=== PATIENT | male | born 1985 | race Caucasian/White ===

== ENCOUNTER 2022-04-15 16:06 | Emergency (ER) | payer BC, SELFPAY ==
[2022-04-15 16:27] VITALS: BP 147/83; PULSE 72; RESP 14; TEMP 36.7; O2SAT 97; BMI 22.4
--- NOTE | 2022-04-15 16:44 | CRLHL7_ITS ---
For Patients: As a result of the Century Cures Act, medical imaging exams and procedure reports are released immediately into your electronic medical record. You may view this report before your referring provider. If you have questions, please contact your health care provider. INDICATION: Abdominal pain, black stools, back pain. TECHNIQUE: CT abdomen and pelvis acquired with 81 cc Isovue 370 IV contrast. COMPARISON: None. FINDINGS: Lower chest: Unremarkable. Liver: Unremarkable. Normal in size and attenuation. No suspicious masses. Gallbladder and bile ducts: Unremarkable. No stones or inflammation. No biliary dilatation. Pancreas: Unremarkable. No mass or inflammation. Spleen: Unremarkable. Normal in size. No masses. Adrenal glands: Unremarkable. No nodules. Kidneys: Unremarkable. No suspicious masses, stones, or hydronephrosis. GI tract: Unremarkable. Normal in caliber. No sign of mass or inflammation. Normal appendix. Vasculature: Abdominal aorta is normal in caliber. Mesenteric arteries are patent. Lymph nodes: No lymphadenopathy. Peritoneum/Abdominal Wall: Unremarkable. No sign of mass or infiltration. No free air or significant free fluid. Pelvis: Vasectomy clips. Bones: Unremarkable for age. IMPRESSION: Unremarkable CT of the abdomen and pelvis. No acute findings. Please note that all CT scans at this facility use dose modulation, iterative reconstruction, and/or weight-based dosing when appropriate to reduce radiation dose to as low as reasonably achievable. Dictated by Sterling Pelayo MD @ 04/15/2022 6:23:42 PM (Electronically Signed)
--- NOTE | 2022-04-15 16:45 | ED_ITS ---
HPI - Abdominal Pain General Chief Complaint: Abdominal Pain Stated Complaint: LOWER BACK & STOMACH PAIN Time Seen by Provider: 04/15/22 16:33 History of Present Illness HPI narrative: This 36-year-old male comes in reporting low back pain that started yesterday and today he has abdominal pain in addition to the back pain. He does not report any particular injury event or strenuous activity. He does not have a history of back pain. He does not report any history of diverticulitis or kidney stones. He states that he had bright red blood in the toilet today. He does report a history of hemorrhoids. Related Data Previous Rx's Medication Instructions Recorded cyclobenzaprine 10 mg tablet 10 mg PO TID #15 tabs 04/15/22 hydrocodone 5 mg-acetaminophen 325 1 tab PO Q4-6H PRN pain #15 tabs 04/15/22 mg tablet ketorolac 10 mg tablet 10 mg PO Q8H 5 days #15 tabs 04/15/22 methylprednisolone 4 mg tablets in See Rx Instructions PO .COMPLEX 04/15/22 a dose pack (Medrol (Martin)) #21 ea Allergies Allergy/AdvReac Type Severity Reaction Status Date / Time amoxicillin Allergy Rash Verified 04/15/22 17:23 Penicillins Allergy Rash Verified 04/15/22 17:23 Review of Systems Status of ROS Reports: 10 or more systems reviewed and unremarkable except as noted in History and below Narrative Constitutional: No fevers, no weight gain or loss. Eyes: No discharge. No vision changes. HENT: No congestion, no sore throat, no ear pain. Cardiovascular: No chest pain, no palpitations. Respiratory: No shortness of breath, no wheezes, no cough. Gastrointestinal: No vomiting, no diarrhea. Diffuse abdominal pain. Genitourinary: No dysuria, no hematuria. Musculoskeletal: Normal range of motion. Low back pain bilaterally. Skin: No rashes, no pruritis. Neurological: No dizziness, weakness, sensory change, speech change. Endo/Heme/Allergies: No bruising or bleeding. No polydipsia. Pysch: no suicidality, no anxiety, no insomnia. All other systems reviewed and are negative. Exam Narrative: Exam Narrative: Constitutional: Well-developed, well-nourished, no acute distress. HEENT: Normocephalic, atraumatic. Neck: Normal range of motion. Nontender. Supple. Heart: Regular. No murmurs. Normal rate. Intact distal pulses. Lungs: Clear to auscultation. No chest discomfort. No wheezes, rhonchi, or rales. Abdomen: Normal bowel sounds. Diffuse tenderness. No rebound tenderness. Genitalia: Deferred. Back: No midline tenderness. Normal range of motion. No pain radiating to either leg. Extremities: Normal range of motion. No injury. Skin: Intact. No rash. Warm. No erythema or pallor. Neurologic: No altered sensation. No weakness. Alert and oriented. Psychiatric: No suicidality. No anxiety or depression. No insomnia. Nursing notes and vitals signs are reviewed. Const: Vital Signs, click to edit/add: Vital Signs - 24 hr 04/15/22 16:27 Temperature 98.1 F Pulse Rate [Right Pulse Oximeter] 72 Respiratory Rate 14 Blood Pressure [Ri ght Upper Arm] 147/83 H Pulse Oximetry 97 Oxygen Delivery Me thod Room Air Course Vital Signs Vital signs: Initial Vital Signs Temperature 98.1 F 04/15/22 16:27 Temperature Source Temporal Artery Scan 04/15/22 16:27 Pulse Rate 72 04/15/22 16:27 Respiratory Rate 14 04/15/22 16:27 Blood Pressure 147/83 H 04/15/22 16:27 Blood Pressure Mean 104 04/15/22 16:27 Blood Pressure Position Sitting 04/15/22 16:27 Pulse Oximetry 97 04/15/22 16:27 Oxygen Delivery Method 04/15/22 16:27 Vital Signs Temperature 98.1 F 04/15/22 16:27 Pulse Rate 72 04/15/22 16:27 Respiratory Rate 14 04/15/22 16:27 Blood Pressure 147/83 H 04/15/22 16:27 Pulse Oximetry 97 04/15/22 16:27 Oxygen Delivery Method 04/15/22 16:27 Temperature 98.1 F 04/15/22 16:27 Pulse Rate 72 04/15/22 16:27 Respiratory Rate 14 04/15/22 16:27 Blood Pressure 147/83 H 04/15/22 16:27 Pulse Oximetry 97 04/15/22 16:27 Oxygen Delivery Method 04/15/22 16:27 MDM - Abdominal Pain MDM Narrative Medical decision making narrative: This patient comes in with low back pain and abdominal pain. An IV was established and labs were drawn. His labs returned with reassuring findings. Additionally CT scan of the abdomen and pelvis show no acute findings that explain his symptoms. It seems more likely that his symptoms are emanating from his back. His current symptoms began with back pain and now is radiating into his abdomen. I advised him to stay active and do gentle stretching and strengthening. I did provide prescriptions for Medrol Dosepak, Toradol, Flexeril, and a few tablets of [place]. I advised him to follow-up with his primary physician or return if worsening. Lab Data Labs: Lab Results 04/15/22 04/15/22 04/15/22 Range/Units 17:10 17:10 17:57 WBC 4.59 (4.50-11.00) K/uL RBC 4.24 L (4.30-5.90) m/uL Hgb 13.4 L (13.5-17.5) gm/dL Hct 37.4 (37.0-53.0) % MCV 88 (80-100) fL MCH 32 (26-34) pg MCHC 36 (32-36) gm/dL RDW Coeff of Star 11.9 (11.5-15.5) % Plt Count 208 (140-440) K/uL Neut % (Auto) 50.7 (42.0-72.0) % Lymph % (Auto) 37.3 (20-44) % [place]rick % (Auto) 10.9 (0.0-11.0) % Eos % (Auto) 0.7 (0.0-7.0) % Baso % (Auto) 0.4 (0.0-3.0) % Neut # (Auto) 2.33 (1.7-7.0) K/uL Lymph # (Auto) 1.71 (0.90-2.90) K/uL Warrick # (Auto) 0.50 (0.00-0.90) K/UL Eos # (Auto) 0.03 (0.00-0.50) K/uL Baso # (Auto) 0.02 (0.00-0.30) K/uL Abs Immat Gran (auto) 0.00 (0.00-0.30) K/uL Sodium 141 (135-149) mmol/L Potassium 3.3 L (3.6-5.1) mmol/L Chloride 106 (96-114) mmol/L Carbon Dioxide 28 (20-32) mmol/L BUN 11 (5-24) mg/dL Creatinine 0.8 (0.5-1.5) mg/dL Estimated Creat Clear 136.43 Estimated GFR 118 ml/min Glucose 94 (60-115) mg/dL Calcium 9.0 (8.4-10.6) mg/dL Urine Color Yellow (Yellow) Urine Appearance Clear (Clear) Urine pH 7.5 (5.0-8.5) Ur Specific [place] 1.010 (1.000-1.030) Urine Protein Negative (Negative) Urine Glucose (UA) Negative (Negative) Urine Ketones Negative (Negative) Urine Blood Negative (Negative) Urine Nitrite Negative (Negative) Urine Bilirubin Negative (Negative) Urine Urobilinogen 0.2 (0.2-1.0) Ur Leukocyte Esterase Negative (Negative) Urine RBC 0-2 (0-2) Urine WBC 0-2 (0-5) Ur Squamous Epith Cells None (None-Few) Urine Bacteria None (None) Imaging Data CT scan - abdomen: Radiologist's impression: Unremarkable CT of the abdomen and pelvis. No acute findings. Discharge Plan Discharge Clinical Impression: Lumbago Patient Disposition: Home, Self-Care Condition: Unchanged Additional Instructions: Increase activity as tolerated. Gentle stretching and strengthening is encouraged. Take medications as needed and directed. Follow up with MD or return if worsening. Prescriptions: New cyclobenzaprine 10 mg tablet 10 mg PO TID Qty: 15 0RF hydrocodone-acetaminophen 5-325 mg tablet 1 tab PO Q4-6H PRN (Reason: pain) Qty: 15 0RF ketorolac 10 mg tablet 10 mg PO Q8H 5 Days Qty: 15 0RF methylprednisolone [Medrol (Martin)] 4 mg tablets,dose pack See Rx Instructions .ROUTE .COMPLEX Qty: 21 0RF Rx Instructions: orally per package directions Stand Alone Forms: [employer] Info Instructions
[2022-04-15 17:23] LABS: Basophils Absolute Auto 0.02 K/uL (0.00-0.30); Basophils Percent Auto 0.4 % (0.0-3.0); Eosinophils Absolute Auto 0.03 K/uL (0.00-0.50); Eosinophils Percent Auto 0.7 % (0.0-7.0); Hematocrit 37.4 % (37.0-53.0); Hemoglobin* 13.4 gm/dL (13.5-17.5); Lymphocytes Absolute Auto 1.71 K/uL (0.90-2.90); Lymphocytes Percent Auto 37.3 % (20-44); Mean Corpuscular HGB Conc 36 gm/dL (32-36); Mean Corpuscular Hemoglobin 32 pg (26-34); Mean Corpuscular Volume 88 fL (80-100); Monocytes Percent Auto 10.9 % (0.0-11.0); Neutrophils Absolute Auto 2.33 K/uL (1.7-7.0); Neutrophils Percent Auto 50.7 % (42.0-72.0); Platelet Count* 208 K/uL (140-440); RDW Coefficient of Variation % 11.9 % (11.5-15.5); Red Blood Count 4.24 m/uL (4.30-5.90); White Blood Count* 4.59 K/uL (4.50-11.00)
[2022-04-15 17:27] LABS: Slide Review Reflex No
[2022-04-15 17:41] LABS: Chloride* 106 mmol/L (96-114); Potassium* 3.3 mmol/L (3.6-5.1); Sodium* 141 mmol/L (135-149)
[2022-04-15 17:43] LABS: Creatinine* 0.8 mg/dL (0.5-1.5); Est. Creatinine Clearance* 136.43; Estimated Glomerular Filt Rate 118 ml/min
[2022-04-15 17:44] LABS: Blood Urea Nitrogen* 11 mg/dL (5-24); Carbon Dioxide* 28 mmol/L (20-32); Glucose* 94 mg/dL (60-115)
[2022-04-15 18:10] LABS: Appearance Urine Clear (Clear); Bilirubin Urine Negative (Negative); Blood Urine Negative (Negative); Color Urine Yellow (Yellow); Glucose Urine Negative (Negative); Ketones Urine Negative (Negative); Leukocyte Esterase Urine Negative (Negative); Nitrite Urine Negative (Negative); Protein Urine Negative (Negative); Urobilinogen Urine 0.2 (0.2-1.0); pH Urine 7.5 (5.0-8.5)
[2022-04-15 18:21] LABS: RBC Urine 0-2 (0-2); WBC Urine 0-2 (0-5)
[2022-04-15 18:55] VITALS: BP 147/83; PULSE 72; RESP 14; TEMP 36.7
--- OUTSIDE RECORDS SUMMARY | 2022-04-15 18:57 | XMS_ITS | Encounter Summary ---
:1985 Author Organization [facility] Address [address] [place] [address] Care Team Providers Name Role Phone Mike Canales MD Primary Care Provider Unavailable Mike Canales MD Unavailable Unavailable Mike Canales MD Unavailable Unavailable Reason for Visit [facility] Physical Therapy (Routine) - Closed Specialty Diagnoses / Procedures Referred By Contact Refer red To Contact Physical Therapy Diagnoses >4 (R) ankle and knee / [facility] / Pref1 Andrey [facility] Procedures EXTREMITY INITIAL MD [facility] Therapy - [facility] ORTHOPEDICS [id number] [address] [facility] [address] [id number] [place] [address] Referral ID Status Reason Start Date Expiration Date Visits Requ ested Visits Authorized [id number] Closed 03/05/2017 07/10/2018 30 30 Encounter Details Date Type Department Care Team Description 10/10/2017 Therapy Visit [facility] Chente Franks, Pain in joint involving ankle and foot, right (Primary Dx); Rehabilitation PT Aftercare following surgery of the [facility] loskeletal system Services [address] [facility] [id number] [facility] [phone] [place] [address] Social History Tobacco Use Types Packs/Day Years Used Date Smoking Tobacco: Former Smokeless Tobacco: Former Alcohol Use Standard Drinks/Week Comments No 0 (1 standard drink = 0.6 oz pure alcoho l) Sex Assigned at Date Recorded Not on file documented as of this encounter Progress Notes Chente Franks, PT - 10/10/2017 12:50 PM CDT [facility] Initial Evaluation Subjective: Patient is a 32 year old male presenting with rehab right ankle/foot hpi. Pt presents to PT s/p right ankle gastroc recession, lateral column lengthening, Cotton osteotomy, FDL tendon transfer, and Spring ligament reconstruction. Surgery occurred on 08/15/17. He was NWB in a cam boot for 6 weeks. He has been FWB in the cam boot for 2 weeks and was given the OK to wean off ofthe boot now. He reports minimal pain, with the pain located in the underside of his heel when putting weight on it. . Site of Pain: Heel. Pain is described as sharp and is intermittent and reported as 5/10. Associated symptoms: Loss of motion/stiffness and loss of strength. Pain is the same all the time. Symptoms are exacerbated by walking and standing and relieved by rest. Since onset symptoms are gradually improving. Special tests: MRI and x-ray. Previous treatment includes physical therapy (pre- surgery). There was no improvement following previous treatment. General health as reported by patient is good. Barriers include: None as reported by patient. Red flags: None as reported by patient. Objective: System Ankle/Foot Evaluation ROM: AROM: Dorsiflexion: Left: 12 Right: 0 Plantarflexion: Left: 70 Right: 37 Inversion: Left: 41 Right: 9 Eversion: 27 Right: 6 Strength: Dorsiflexion: Right: 5-/5 Pain: Plantarflexion: Right: 3+/5 Pain: Inversion:Right: 4/5 Pain: Eversion:Right: 4/5 Pain: Flexion Great Toe:Right: 3/5 Pain: Extension Great Toe:Right: 5/5 Pain: EDEMA: Edema ankle: Mild edema in foot and ankle. General ROS Assessment/Plan: Patient is a 32 year old male with right side ankle complaints. Patient has the following significant findings with corresponding treatment plan. Diagnosis 1: S/p gastroc recession, osteotomy, FDL tendon transfer, and Spring ligament reconstruction Pain - hot/cold therapy, education and home program Decreased ROM/flexibility - manual therapy, therapeutic exercise and home program Decreased strength - therapeutic exercise, therapeutic activities and home program Therapy Evaluation Codes: 1) History comprised of: Personal factors that impact the plan of care: None. Comorbidity factors that impact the plan of care are: None. Medications impacting care: None. 2) Examination of Body Systems comprised of: Body structures and functions that impact the plan of care: Ankle. Activity limitations that impact the plan of care are: Stairs, Standing and Walking. 3) Clinical presentation characteristics are: Stable/Uncomplicated. 4) Decision-Making Low complexity using standardized patient assessment instrument and/or measureable assessment of functional outcome. Cumulative Therapy Evaluation is: Low complexity. Previous and current functional limitations: (See Goal Flow Sheet for this information) Short term and long term goals: (See Goal Flow Sheet for this information) Communication ability: Patient appears to be able to clearly communicate and understand verbal and written communication and follow directions correctly. Treatment Explanation - The following has been discussed with the patient: RX ordered/plan of care Anticipated outcomes Possible risks and side effects This patient would benefit from PT intervention to resume normal activities. Rehab potential is good. Frequency: 1 X week, once daily Duration: for 6 weeks Discharge Plan: Achieve all LTG. Independent in home treatment program. Reach maximal therapeutic benefit. Please refer to the daily flowsheet for treatment today, total treatment time and time spent performing 1:1 timed codes. Chente Franks, PT - 10/10/2017 12:50 PM CDT Subjective: HPI Objective: System Physical Exam General ROS Assessment/Plan: DISCHARGE REPORT Progress reporting period is from 10/10/17 to present. SUBJECTIVE Subjective changes noted by patient: Sterlign did not attend PT following his initial visit on 10/10/17. His current status is unknown. Current pain level is Current Pain level: 5/10. Previous pain level was n/a . Changes in function: Unknown. Adverse reaction to treatment or activity: None OBJECTIVE Changes noted in objective findings: Patient has failed to return to therapy so current objective findings are unknown. ASSESSMENT/PLAN Updated problem list and treatment plan: Diagnosis 1: Right gastroc recession with spring ligament reconstruction STG/LTGs have been met or progress has been made towards goals: Unknown. Assessment of Progress: The patient has not returned to therapy. Current status is unknown. Self Management Plans: Patient has been instructed in a home treatment program. Setrling continues to require the following intervention to meet STG and LTG's: PT intervention is nolonger required to meet STG/LTG. Recommendations: Discharge from PT. Please refer to the daily flowsheet for treatment today, total treatment time and time spent performing 1:1 timed codes. documented in this encounter Miscellaneous Notes Addendum Note - Chente Franks PT - 02/06/2018 7:48 AM CDT Addended by: CHENTE FRANKS on: 02/06/2018 07:48 AM Modules accepted: Orders documented in this encounter Plan of Treatment Not on filedocumented as of this encounter Procedures Procedure Name Priority Date/Time Associated Diagnosis Comme nts ZZC THERAPEUTIC Routine 10/10/2017 2:40 PM Pain in joint invol ving EXERCISES CDT ankle and foot, right Aftercare following surgery of the musculoskeletal system [facility] HOT OR COLD PACKS Routine 10/10/2017 2:40 PM Pain in joint involving THERAPY CDT ankle and foot, right Aftercare following surgery of the musculoskeletal system documented in this encounter Visit Diagnoses Diagnosis Pain in joint involving ankle and foot, right - Primary [facility] Aftercare following surgery of the [facility] los[facility] system, NEC documented in this encounter Additional Health Concerns Assessment Noted Time PHQ-9 Depression Total Score: 1 08/09/2017 7:58 AM [employer] documented as of this encounter Care Teams Program Host Relationship Specialty Start Date End Date Mike Canales MD PCP - General Family Practice 08/06/17 Mike Canales MD PCP - Assigned PCP 08/10/17 09/08/18 Mike Canales MD Assigned PCP 08/10/17 08/12/20 documented as of this encounter
--- OUTSIDE RECORDS SUMMARY | 2022-04-15 18:57 | XMS_ITS | Encounter Summary ---
:1985 Author Organization [facility] Address [address] [place] [address] Care Team Providers Name Role Phone Mike Canales MD Primary Care Provider Unavailable Mike Canales MD Unavailable Unavailable Mike Canales MD Unavailable Unavailable Reason for Visit Auth/Cert Specialty Diagnoses / Procedures Referred By Contact Refer red To Contact Surgery Diagnoses Post Tibial Tendon Dysfunction Rh Periop Services Procedures RECESSION GASTROCNEMIUS OSTEOTOMY FOOT [address], [place] [address] Phone: Fax: Referral ID Status Reason Start Date Expiration Date Visits Requ ested Visits Authorized [id number] 1 1 Encounter Details Date Type Department Care Team Description 08/15/2017 Surgery [facility] Andrey Fernandes 1. Gas trocnemius [facility] Sandoval MD recession, right. 2. [address] [facility] Lateral column [place], [place] [facility] lengthening, right. 3. [id number] [place] Cotton osteotomy, right. [phone] 201 4. Flexor digitorum [place], [place] [id number] navicular, right. 5. [phone] (Wo rk) Spring ligament reinforce ment/reconstruct ion, right. Surgery Details Date/Time Status Location OR Service Patient Case Case Traum a Class Class Type Case? 08/15/17 1:55 Posted [facility] OR OR Orthopedics Same Day PM Surgery Panel 1 Procedure [facility] An[facility] Op Region Wound Class Commen ts 1. Gastrocnemius Right General with Leg I-Clean 1. Gas trocnemius recession, right. 2. Block rece ssion, right. Lateral column 2. Lateral column lengthening, right. lengt hening, right. 3. Cotton osteotomy, 3. C otton osteotomy, right. 4. Flexor right. digitorum longus 4. Flexo r digitorum transfer to longus transf er to navicular, right. 5. jsesica cular, right. Spring ligament 5. Spring ligament reinforcement/reconst kenisha nforcement/reconst ruction, right. ruction, right. OSTEOTOMY, FOOT, OPEN Right General with Foot I-Clean Block Surgeon Surgeon Role Service Panel Andrey Fernandes MD Primary Orthopedics 1 Korin Arita PA-C Assisting Detail Sergeant Authorization 1 Special Needs Ht- 5' 10 Wt- 177# per H&P documented in this encounter Social History Tobacco Use Types Packs/Day Years Used Date Smoking Tobacco: Former Smokeless Tobacco: Former Alcohol Use Standard Drinks/Week Comments No 0 (1 standard drink = 0.6 oz pure alcoho l) Sex Assigned at Date Recorded Not on file documented as of this encounter Last Filed Vital Signs Vital Sign Reading Time Taken Comments Blood Pressure 115/52 08/15/2017 6:50 PM DENTURE MODEL MAKER Pulse - - Temperature 36.4 ??C (97.6 ??F) 08/15/2017 6:50 PM DENTURE MODEL [employer]KER Respiratory Rate 16 08/15/2017 6:50 PM DENTURE MODEL MAKER Oxygen Saturation 98% 08/15/2017 6:50 PM DENTURE MODEL MAKER Inhaled Oxygen Concentration - - Weight 78.5 kg (173 lb 1.6 oz) 08/15/2017 9:16 AM DENTURE MODEL MAKER Height 179.7 cm (5' 10.75) 08/15/2017 9:16 AM DENTURE MODEL MAKER Body Mass Index 24.31 08/15/2017 9:16 AM DENTURE MODEL MAKER documented in this encounter Discharge Instructions Discharge InstructionsLeanna Causey RN - 08/15/2017 5:34 PM CST GENERAL ANESTHESIA OR SEDATION ADULT DISCHARGE INSTRUCTIONS SPECIAL PRECAUTIONS FOR 24 HOURS AFTER SURGERY IT IS NOT UNUSUAL TO FEEL LIGHT-HEADED OR FAINT, UP TO 24 HOURS AFTER SURGERY OR WHILE TAKING PAIN MEDICATION. IF YOU HAVE THESE SYMPTOMS; SIT FOR A FEW MINUTES BEFORE STANDING AND HAVE SOMEONE ASSIST YOU WHEN YOU GET UP TO WALK OR USE THE BATHROOM. YOU SHOULD REST AND RELAX FOR THE NEXT 24 HOURS AND YOU MUST MAKE ARRANGEMENTS TO HAVE SOMEONE STAY WITH YOU FOR AT LEAST 24 HOURS AFTER YOUR DISCHARGE. AVOID HAZARDOUS AND STRENUOUS ACTIVITIES. DO NOTMAKE IMPORTANT DECISIONS FOR [address] ANY VEHICLE OR OPERATE MECHANICAL EQUIPMENT FOR 24 HOURS FOLLOWING THE END OF YOUR SURGERY. EVEN THOUGH YOU MAY FEEL NORMAL, YOUR REACTIONS MAY BE AFFECTED BY THE MEDICATION YOU HAVE RECEIVED. DO NOT DRINK ALCOHOLIC BEVERAGES FOR 24 HOURS FOLLOWING YOUR SURGERY. DRINK CLEAR LIQUIDS (APPLE JUICE, FRANCINE CHARLEY, 7-UP, BROTH, ETC.). PROGRESS TO YOUR REGULAR DIET YOU FEEL ABLE. YOU MAY HAVE A DRY MOUTH, A SORE THROAT, MUSCLES ACHES OR TROUBLE SLEEPING. THESE SHOULD GO AWAY AFTER 24 HOURS. CALL YOUR DOCTOR FOR ANY OF THE FOLLOWING: SIGNS OF INFECTION (FEVER, GROWING TENDERNESS AT THE SURGERY SITE, A LARGE AMOUNT OF DRAINAGE OR BLEEDING, SEVERE PAIN, FOUL-SMELLING DRAINAGE, REDNESS OR SWELLING. IT HAS BEEN OVER 8 TO 10 HOURS SINCE SURGERY AND YOU ARE STILL NOT ABLE TO URINATE (PASS WATER). HOME CARE INSTRUCTIONS AFTER REGIONAL ANESTHESIA To do your surgical procedure, your doctor used regional anesthesia to ???numb?? your arm, leg, or foot. This type of anesthesia will not be completely worn off for 4-24 hours. You should be careful during this time not to injure your extremity. As the anesthetic wears off, you may have a tingling and prickly sensation as the feeling starts to return. The amount of discomfort you may feel is unpredictable. Use your pain medication as prescribed or advised by your doctor. 1. Wear a sling until your arm is completely ???awake?? . 2. Use crutches until your leg is ???awake?? . 3. Avoid striking or bumping your arm, leg, or foot while it is numb. 4. Avoid extremes of hot or cold while it is numb. 5. Remain quiet and restful the day of surgery. Resume normal activities gradually over the next dayor so as advised by your doctor. 6. Do not drive or operate any machinery until your extremity is fully ???awake?? . Please notify your doctor of any of the followin. There is excessive bleeding or drainage. 2. There is increased swelling of the extremity making the dressing too tight, and this is not relieved by elevating extremity. 3. There is blue coloring to fingers/toes or they are cold to touch. 4. There is severe pain not relieved by your pain medication. 5. There is any numbness or tingling of the extremity the following day. Caring For Your Cast This information was prepared for you to help you take care of your cast. Please read each section carefully and ask your physician if you have questions. HOW TO CARE FOR YOUR CAST ??? If your cast is made of plaster of Ruma and it becomes soiled, clean using a damp cloth with dry cleanser or use white shoe burkinan sparingly. If your cast is made of fiberglass, clean with a damp cloth with a small amount of mild soap. ??? Avoid bumping or knocking the cast against any hard object. Cover rough areas with tape. ??? Never trim or cut down the length of your cast. Please call your physician if the cast becomes loose, broken or cracked. ??? If skin under the cast begins to itch, do not use anything to scratch under the cast since it may break the skin and cause an infection. Parents should be alert to prevent children from sticking forks, sticks or other objects inside the cast. ??? If your physician orders a cast boot, be sure to wear it. ??? You may wash areas around the cast, but do not saturate the cast in the process. Some coverings can be used to protect your cast. Please ask you physician to recommend one. WHAT TO CHECK FOR ??? Check your fingers or toes for color changes, swelling, loss of motion, numbness, tingling or severe pain. In infants or young children, check for crying that cannot be soothed by usual methods. Call your physician if these symptoms occur. ??? If swelling is noted during the first 24 to 48 hours, elevate the extremity higher than your head. After this time, elevate it whenever you are in bed. ??? Check cast for undesirable odors or drainage. Also check for any areas of local pain under your cast. These may be signs of an area of pressure under the cast. ??? Be sure any padding used is well anchored to the cast. Be careful not to pull padding out. Without the padding. Loose material may slip into cast and cause irritation. WHEN TO CALL YOUR PHYSICIAN You should call IF you notice: ??? A bluish color, increased swelling, loss of motion, increased numbness/tingling or severe pain of fingers or toes. ??? Unusually foul odor from cast. ??? Unusual drainage (blood is expected if there has been surgery). ??? Broken, cracked or very loose cast. ??? Localized pain under cast. CAST REMOVAL AND POST CAST CARE ??? A specially designed saw will be used to remove your cast. Cast removal is fast and painless. ??? Use of skin lotion or bathing with bath oil may eliminate some of the dry, flaky skin which is present after your cast is removed. Do not scrub your skin since this may cause skin breakdown. ??? Elevate your extremity if you notice any swelling after your cast is removed. ??? Your arm or leg may appear thinner and web sizer because you haven???t been using it. Your physician will determine how much physical activity is advisable following removal of your cast. REMEMBER: Cast care must continue as long as your cast is on. URE MODEL MAKER documented in this encounter Medications at Time of Discharge Medication Sig Dispensed Refills Start Date End Date acetaminophen (TYLENOL) Take 2-3 tablets 50 tablet 0 2017 325 MG (650-975 mg) by mouth tabletIndications: every 6 hours Tibialis posterior tendinitis, right gabapentin (NEURONTIN) Take 1 capsule (300 mg) 9 capsule 0 08/15/2017 300 MG by mouth 3 times daily capsuleIndications: Tibialis posterior tendinitis, right hydrOXYzine (ATARAX) 25 Take 1 tablet (25 mg) 30 tablet 0 0 08/15/2017 MG tabletIndications: by mouth every 6 hours Tibialis posterior as needed for itching tendinitis, right (spasm and nausea) ibuprofen (ADVIL/MOTRIN) Take 1 tablet (600 mg) 50 tablet 0 08/15/2017 600 MG by mouth every 6 hours tabletIndications: Tibialis posterior tendinitis, right order for Equipment being 1 Device 0 07/15/2017 DMEIndications: Chronic ordered: ankle brace pain of right ankle, Pes planus of both feet oxyCODONE IR Take 1-2 tablets (5-10 24 tablet 0 08/15/2017 (ROXICODONE) 5 MG mg) by mouth every 4 tabletIndications: hours as needed for Tibialis posterior breakthrough pain tendinitis, right documented as of this encounter H&P Notes Juliette Stanton - 08/14/2017 11:03 AM CST This note is for the purpose of making the H&P performed in clinic within the last 30 days available in the hospital surgical encounter. URE MODEL MAKER Source Note - Mike Canales MD - 08/08/2017 7:06 AM DENTURE MODEL MAKER [address] [address] Dept: [phone] PRE-OP EVALUATION: Today's date: 08/08/2017 Nicolás Mcfarland (: 1985) presents for pre-operative evaluation assessment as requested by Dr. Fernandes . He requires evaluation and anesthesia risk assessment prior to undergoing surgery/procedure for treatment of RECESSION GASTROCNEMIUS OSTEOTOMY RIGHT FOOT Date of Surgery/ Procedure: 08/15/17 Time of Surgery/ Procedure: 10:25am Hospital/Surgical Facility: [facility] Primary Physician: Mike Canales Type of Anesthesia Anticipated: to be determined Patient has a Health Care Directive or Living Will: NO Preop Questions 08/08/2017 1. Do you have a history of heart attack, stroke, stent, bypass or surgery on an artery in the head,neck, heart or legs? No 2. Do you ever have any pain or discomfort in your chest? No 3. Do you have a history of Heart Failure? No 4. Are you troubled by shortness of breath when: walking on a level surface, or up a slight hill, orat night? No 5. Do you currently have a cold, bronchitis or other respiratory infection? No 6. Do you have a cough, shortness of breath, or wheezing? No 7. Do you sometimes get pains in the calves of your legs when you walk? No 8. Do you or anyone in your family have previous history of blood clots? No 9. Do you or does anyone in your family have a serious bleeding problem such as prolonged bleeding following surgeries or cuts? No 10. Have you ever had problems with anemia or been told to take iron pills? No 11. Have you had any abnormal blood loss such as black, tarry or bloody stools? No 12. Have you ever had a blood transfusion? No 13. Have you or any of your relatives ever had problems with anesthesia? No 14. Do you have sleep apnea, excessive snoring or daytime drowsiness? No 15. Do you have any prosthetic heart valves? No 16. Do you have prosthetic joints? No HPI: Brief HPI related to upcoming procedure: Right tibialis posterior tendinitis. Patient is otherwise healthy and active. MEDICAL HISTORY: Patient Active Problem List Diagnosis Date Noted ??? Tibialis posterior tendinitis, right 03/05/2017 Priority: Medium ??? Acute pain of right knee 03/05/2017 Priority: Medium ??? Chronic pain of right ankle 02/20/2017 Priority: Medium ??? 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/2017 Priority: Medium ??? Chronic pain of right knee 02/20/2017 Priority: Medium History reviewed. No pertinent past medical history. Past Surgical History: Procedure Laterality Date ??? DENTAL SURGERY [place] teeth Current Outpatient Prescriptions Medication Sig Dispense Refill ??? diclofenac (VOLTAREN) 1 % GEL topical gel Apply 4 grams to knees or 2 grams to hands four times daily using enclosed dosing card. 100 g 1 ??? order for DME Equipment being ordered: ankle brace 1 Device 0 OTC products: None, except as noted above Allergies Allergen Reactions ??? Amoxicillin Hives Latex Allergy: NO Social History Substance Use Topics ??? Smoking status: Former Smoker ??? Smokeless tobacco: Former User ??? Alcohol use No History Drug Use No REVIEW OF SYSTEMS: C: NEGATIVE for fever, chills, change in weight I: NEGATIVE for worrisome rashes, moles or lesions E: NEGATIVE for vision changes or irritation E/M: NEGATIVE for ear, mouth and throat problems R: NEGATIVE for significant cough or SOB CV: NEGATIVE for chest pain, palpitations or peripheral edema GI: NEGATIVE for nausea, abdominal pain, heartburn, or change in bowel habits : NEGATIVE for frequency, dysuria, or hematuria M: NEGATIVE for significant arthralgias or myalgia N: NEGATIVE for weakness, dizziness or paresthesias P: NEGATIVE for changes in mood or affect This document serves as a record of the services and decisions personally performed and made by Mike Canales MD. It was created on his behalf by Rachel Maravilla, a trained medical claims analyst. The creation of this document is based on the provider's statements to the medical claims analyst. Rachel Maravilla 7:17 AM August 08, 2017 EXAM: BP 120/70 (BP Location: Right arm, Patient Position: Chair, Cuff Size: Adult Regular) Pulse 74 Temp 97.6 ??F (36.4 ??C) (Oral) Ht 1.797 m (5' 10.75) Wt 78.5 kg (173 lb) SpO2 96% BMI 24.3 kg/m2 GENERAL APPEARANCE: healthy, alert and no distress EYES: EOMI, PERRL HENT: ear canals and TM's normal and nose and mouth without ulcers or lesions NECK: no adenopathy, no asymmetry, masses, or scars and thyroid normal to palpation RESP: lungs clear to auscultation - no rales, rhonchi or wheezes CV: regular rates and rhythm, normal S1 S2, no S3 or S4 and no murmur, click or rub ABDOMEN: soft, nontender, no HSM or masses and bowel sounds normal MS: extremities normal- no gross deformities noted, no evidence of inflammation in joints, FROM in all extremities. SKIN: no suspicious lesions or rashes NEURO: Normal strength and tone, sensory exam grossly normal, mentation intact and speech normal PSYCH: mentation appears normal. and affect normal/bright LYMPHATICS: No axillary, cervical, or supraclavicular nodes DIAGNOSTICS: EKG: Not indicated due to non-vascular surgery and low risk of event (age <65 and without cardiacrisk factors) No results for input(s): HGB, PLT, INR, NA, POTASSIUM, CR, A1C in the last [id number] hours. IMPRESSION: Reason for surgery/procedure: Right tibialis posterior tendinitis Diagnosis/reason for consult: preoperative evaluation for assessment of cardiovascular and respiratory disease as well as overall risk assessment and perioperative medical management. The proposed surgical procedure is considered INTERMEDIATE risk. REVISED CARDIAC RISK INDEX The patient has the following serious cardiovascular risks for perioperative complications such as (FL, PE, VFib and 3?? AV Block): No serious cardiac risks INTERPRETATION: 0 risks: Class I (very low risk - 0.4% complication rate) The patient has the following additional risks for perioperative complications: No identified additional risks ICD-10-CM 1. Preop general physical exam Z01.818 CBC with platelets Basic metabolic panel MRSA MSSA Presurgical Screen 2. Tibialis posterior tendinitis, right M76.821 RECOMMENDATIONS: --Patient is to take all scheduled medications on the day of surgery EXCEPT for modifications listedbelow. Anticoagulant or Antiplatelet Medication Use ASPIRIN: Discontinue ASA 7-10 days prior to procedure to reduce bleeding risk. It should be resumed post-operatively. NSAIDS: Ibuprofen (Motrin): Stop five days prior to surgery APPROVAL GIVEN to proceed with proposed procedure, without further diagnostic evaluation The information in this document, created by the medical claims analyst for me, accurately reflects the services I personally performed and the decisions made by me. I have reviewed and approved this document for accuracy prior to leaving the patient care area. August 08, 2017 7:27 AM Signed Electronically by: Mike Canales MD Copy of this evaluation report is provided to requesting physician. [facility] Preop Guidelines URE MODEL MAKER documented in this encounter Miscellaneous Notes Op Note - Andrey Fernandes MD - 08/15/2017 7:10 PM CST Procedure Date: 08/15/2017 PREOPERATIVE DIAGNOSES: 1. Posterior tibial tendon dysfunction, right. 2. Painful planovalgus foot deformity, right. 3. Gastrocnemius contracture, right. POSTOPERATIVE DIAGNOSES: 1. Posterior tibial tendon dysfunction, right. 2. Painful planovalgus foot deformity, right. 3. Gastrocnemius contracture, right. PROCEDURES: 1. Gastrocnemius recession, right. 2. Lateral column lengthening, right. 3. Cotton osteotomy, right. 4. Flexor digitorum longus transfer to navicular, right. 5. Spring ligament reinforcement/reconstruction, right. IMPLANTS: Allograft bone, [place] 28, Ultrabraid tape. SURGEON: Andrey Fernandes MD CHIN STRAP CUTTER: Korin Arita PA-C ANESTHESIA: Regional plus general. ESTIMATED BLOOD LOSS: Minimal. DRAINS: None. SPECIMENS: None. COMPLICATIONS: None. INDICATIONS FOR PROCEDURE: Nicolás Mcfarland is a 32-year-old man who presented with a painful planovalgus foot deformity consistent with posterior tibial tendon dysfunction. He also had a gastrocnemius contracture. After discussion of risks, benefits and alternatives, he elected to proceed with surgicaltreatment. PROCEDURE IN DETAIL AND FINDINGS: The patient was identified in the preoperative area and appropriately marked. He was brought to the operating room where a general anesthetic was administered and airway secured without difficulty. He had undergone a regional anesthetic by the anesthesia team before arrival to the operating room. Preoperative antibiotic prophylaxis was provided within an hour of the incision. Prophylaxis was discontinued post surgery. A tourniquet was applied to the right thigh. Theright leg and foot were prepped and draped in sterile fashion. The limb was elevated for exsanguination and the tourniquet inflated. A pause for the cause was performed. I began with the gastrocnemius recession. A medial paramidline incision was made. The interval between the gastroc and soleus was identified. The deep tendinous surface of the gastrocnemius was incisedfrom lateral to medial under direct visualization. This gapped about 1 to 1.5 cm. The wound was irrigated and closed in layers. After the recession, I was able to achieve 15 degrees of passive dorsiflexion with the knee extended and the arch corrected. I turned my attention to the lateral column. There was significant coverage of the talar head on thepreoperative imaging so a lateral column lengthening was indicated. A longitudinal incision was madeto the distal aspect of the lateral calcaneus. This was carried down to the extensor brevis muscle belly, and the peroneal tendons were mobilized. About 12 mm proximal to the calcaneocuboid joint an osteotomy was performed, and this was wedged open dialing in the coverage of the talar head. A 10 mm Krishnan wedge was opened and trimmed slightly to about 9 mm. This was inserted and secured with a formal plate. There was a good correction of the talar head coverage, but a significant residual forefoot supination. At this point, a Cotton osteotomy was performed. A dorsal medial incision was made. The midpoint of the medial cuneiform was identified and an osteotomy performed under C-arm visualization. This was booked open, again dialing in the correction. An 8 mm allograft wedge was placed and secured with a Pressfit. At this point, both clinically and radiographically the bony arch was corrected. Therefore a medializing calcaneal osteotomy was deferred. I made a median incision along the distal aspect of the posterior tibial tendon. The tendon itself had good excursion. I therefore did not resect this. I still, however, felt that the insertion of the medial soft tissues was an important step. Therefore the FDI tendon was visualized and identified. This was cut distally as far as possible. This was then brought up through the medial tubercle and navicular and tied back on itself as well as to the residual insertion of the posterior tibial tendon with multiple interrupted sutures. Finally, a 2 mm Ultrabraid tape was used to secure the medial tubercle of the navicular to the spring ligament. This was tied and the knot placed on protected position. AP, lateral and oblique views of the right foot were taken and reviewed. There was excellent arch height and talar head coverage. The talar metatarsal line was well restored on both views. The wounds were irrigated and closed in layers. Adaptic, sterile dressings and a well-padded short-leg cast were applied. The patient tolerated the procedure well. There were no complications. All sponge and needle counts were correct. PLAN: He will be nonweightbearing for 6 weeks. He will return in 2 weeks for cast off, wound check, sutures out and placement of an Aircast boot. He can then begin some gentle range of motion, but should continue to be nonweightbearing. After 4 weeks, he can do heel touch weightbearing in the boot. This should still be more for balance and transfer convenience then a true full heel walking. He will follow up at 6 weeks for AP, lateral and oblique weightbearing views of the right foot and areexamination. ANDREY FERNANDES MD [place]: Name: NICOLÁS MCFARLAND MRN: [id number] Account: [id number] : 1985 Procedure Date: 08/15/2017 Document: [id number] URE MODEL MAKER Brief Op Note - Andrey Fernandes MD - 08/15/2017 4:36 PM CST [facility] Brief Operative Note Pre-operative diagnosis: Post Tibial Tendon Dysfunction, right Gastrocnemius contracture, right Post-operative diagnosis Same Procedure: Procedure(s): Gastroc recession, lateral column lengthening, cotton osteotomy, flexor digitorum longus transfer, medial soft tissue reconstruction, right foot - Wound Class: I-Clean - Wound Class: I-Clean Surgeon(s): Surgeon(s) and Role: * Andrey Fernandes MD - Primary * Korin Arita PA-C - Assisting Estimated blood loss: 5 mL Specimens: none Findings: ANES: reg + gen IMPLANTS: [id number] (3.5mm), ultratape, allograft bone URE MODEL MAKER documented in this encounter Plan of Treatment Not on filedocumented as of this encounter Procedures Procedure Name Priority Date/Time Associated Diagnosis Comme nts XR SURGERY CONCEPCION Routine 08/15/2017 4:36 PM Result s for this FLUORO LESS THAN 5 DENTURE MODEL MAKER procedure are in MIN W STILLS the results section. OSTEOTOMY, FOOT, 08/15/2017 2:28 PM Post Tibial Tendon OPEN DENTURE MODEL MAKER Dysfunction Special Needs Ht- 5' 10 Wt- 177# per H&P RECESSION, MUSCLE, 08/15/2017 2:28 PM DENTURE MODEL MAKER Post Tibial Tendon GASTROCNEMIUS Dysfunction Special Needs Ht- 5' 10 Wt- 177# per H&P documented in this encounter Results XR Surgery CONCEPCION L/T 5 Min Fluoro w Stills (08/15/2017 4:36 PM DENTURE MODEL MAKER) Specimen (Source) Anatomical Location Collection Method / Collectio n Time Received Time / Laterality Volume Narrative RADIANT - 08/15/2017 4:37 PM DENTURE MODEL MAKER This exam was marked as non-reportable because it will not be read by a radiologist or a [facility] non-radiologis t provider. Andrey Fernandes MD IMG DIAGNOSTIC IMAGING ORDER DAVIN Performing Organization Address City/State/ZIP Code Phon e Number RADIANT documented in this encounter Visit Diagnoses Not on filedocumented in this encounter Administered Medications Inactive Administered Medications - up to 3 most recent administrations Medication Order MAR Action Action Date Dose Rate Site hydrOXYzine (ATARAX) tablet 25 mg Given 08/15/2017 6:36 PM DENTURE MODEL MAKER 25 mg 25 mg, Oral, ONCE PRN, anxiety, associated with pain or itching, Starting on Fri08/15/17 at 1710, For 1 dose, One time prior to discharge., Post-procedure ibuprofen (ADVIL/MOTRIN) tablet 600 mg Given 08/15/2017 6:36 PM DENTURE MODEL MAKER 600 mg 600 mg, Oral, ONCE PRN, moderate pain, mild pain, Starting on Fri08/15/17 at 1710, For 1 dose, One time prior to discharge., Post-procedure lactated ringers infusion New Bag 08/15/2017 2:45 PM DENTURE MODEL MAKER at 25 mL/hr, Intravenous, CONTINUOUS, IF patient NOT on dialysis., Pre-procedure, Starting on Fri08/15/17 at 0945, Until Fri08/15/17 at 1703 New Bag 08/15/2017 2:01 PM DENTURE MODEL MAKER 25 mL/hr ondansetron (ZOFRAN) injection 4 mg 4 mg, Intravenous, EVERY 30 MIN PRN, elli sea, vomiting, Administer over 2-5 Minutes, Starting on Fri08/15/17 at 1735, For 2 do ses, MAX total dose = 8 mg, including OR dosing. This is step 1 of nausea and vomiting manageme nt. If not resolved in 15 minutes, then go to step 2 [prochlorpera zine (COMPAZINE) if ordered]. Irritant. For ordered doses up to 4 mg, give IV Push u ndiluted over 2-5 minutes., PACU/Phase II ondansetron (ZOFRAN-ODT) ODT tab 4 mg 4 mg, Oral, EVERY 30 MIN PRN, nausea, vo miting, Starting on Fri08/15/17 at 1735, For 2 doses, MAX total dose = 8 mg, includin g OR dosing. This is step 1 of nausea and vomiting management. If not resolved in 15 minutes, th en go to step 2 [prochlorperazine (COMPAZINE) if ordered ]. With dry hands, peel back foil backing and gently remove tablet; do not push oral disintegrat ing tablet through foil backing; administer immediately on tongu e and oral disintegrating tablet dissolves in seconds; then swallow with saliva; liquid not requi red., PACU/Phase II oxyCODONE IR (ROXICODONE) tablet 5 mg Given 08/15/2017 6:09 PM DENTURE MODEL MAKER 5 mg 5 mg, Oral, ONCE PRN, other, pain control or improvement in physical function.??, Starting on Fri08/15/17 at 1710, For 1 dose, Notify provider to assess for uncontrolled pain or analgesic side effects., Post-procedure documented in this encounter Active and Recently Administered Medications Times are shown in DENTURE MODEL MAKER. Scheduled Medication Order 08/13/2017 08/14/2017 08/15/2017 clindamycin (CLEOCIN) infusion 900 mg (COMPLETED) 1445 (Given - Provider: Shiv Topete APRN CLUB MANAGER) 900 mg, Intravenous, ONCE, Fri08/15/17 at 1430, For 1 dose, Indications: Perioperative Pharmacoprophylaxis, Pre-procedure Continuous Medication Order 08/13/2017 08/14/2017 08/15/2017 lactated ringers infusion (CANCELED) 1401 (New Bag - Provider: Layla Cannon RN)1445 (New Bag - Provider: Shiv Topete APRN CLUB MANAGER)1530 (Anesthesia Volume Adjustment - Provider: Chidi Kerr APRN CLUB MANAGER)1647 (Anesthesia Volume Adjustment - Provider: Demond Mckeon APRN CLUB MANAGER) at 25 mL/hr, Intravenous, CONTINUOUS, IF patient NOT on dialysis., Pre- procedure, Starting Fri08/15/17 at 0945, Until Fri08/15/17 at 1703 lactated ringers infusion 1745 ( Canceled Entry - Provider: Orders Generic Provider - Comment: Automatically canceled at discontinue of medication order) at 100 mL/hr, Intravenous, CONTINUOUS, C ontinue until IV catheter is weaned, PACU/Phase II, Starting Fri08/15/17 at 1745, Until Fri08/15/17 at 2111 PRN Medication Order 08/13/2017 08/14/2017 08/15/2017 fentaNYL (PF) (SUBLIMAZE) injection 25-50 mcg 25-50 mcg, Intravenous, EVERY 15 MIN PRN , Starting Fri08/15/17 at 1805, other, acute pain while in Phase II, MAX cumulative dose = 250 mcg. Use fentaNYL (SUBLIMAZE) initially, as a short acting agent for acute pain control. If insufficient, or a longer acting agent is needed, begin morphine or HYDROmorphone (DILAUDID) if ordered. For ordered doses up to 100 mcg give IV Push undiluted over a minimum of 3-5 minutes., Phase ll HYDROmorphone (PF) (DILAUDID) injection 0.3-0.5 mg 0.3-0.5 mg, Intravenous, EVERY 10 MIN AR N, Starting Fri08/15/17 at 1736, Until Fri08/15/17 at 2111, other, acute pain. May administer if Respiratory Rate is greater than 10, PACU/Phase II, Max cumulative dose = 2 mg If fentaNYL (SUBLIMAZE) is a lso ordered, use HYDROmorphone (DILAUDID) if pain control insufficient with fentaNYL (SUMBLIMAZE) or a longer acting agent is needed. For ordered doses up to 4 mg give IV Push undiluted. Administer each 2mg over 2-5 minutes. hydrOXYzine (ATARAX) tablet 25 mg (COMPLETED) 1835 (Given - Provider: Carly Paris, TROY) 25 mg, Oral, ONCE PRN, anxiety, associat ed with pain or itching, Starting Fri08/15/17 at 1710, For 1 dose, One time prior to discharge., Post-procedure ibuprofen (ADVIL/MOTRIN) tablet 600 mg (COMPLETED) 1835 (Given - Provider: Carly Paris, TROY) 600 mg, Oral, ONCE PRN, moderate pain, m ild pain, Starting Fri08/15/17 at 1710, For 1 dose, One time prior to discharge., Post-procedure lidocaine 1 % 1 mL (CANCELED) 14 58 (Given - Provider: Shiv Topete, ELECT[employer] PUBLICATION[employer] SPECIALIST CLUB MANAGER) 1 mL, Other, EVERY 1 HOUR PRN, mild pain with VAD insertion or accessing implanted port, Starting Fri08/15/17 at 0929, Do NOT give if patient has a history of allergy to any local anesthetic or any estrada e product. MAX dose 1 mL subcutaneous O R intradermal in divided doses., Pre-procedure meperidine (DEMEROL) injection 12.5 mg 12.5 mg, Intravenous, EVERY 15 MIN PRN, 2 doses, Starting Fri08/15/17 at 1735, Until Fri08/15/17 at 2111, post anesthesia shivering, PACU/Phase II, Give IV Push undiluted. 10-40 mg over 2-3 minutes, up to 125 mg over 3-15 minutes naloxone (NARCAN) injection 0.1-0.4 mg 0.1-0.4 mg, Intravenous, EVERY 2 MIN PRN , opioid reversal, Starting Fri08/15/17 at 1735, For 24 hours, For apnea or imminent respiratory arrest: give 0.4 mg IV undiluted Q 2 minutes PRN until desired deg ree of reversal is obtained, stop opioid and notify provider. Continue monitoring until discharge are criteria met for a minimum of 2 hours. For severe sedation, decrease in respiratory depth, quality o r Respiratory Rate greater than 8: give 0.1 mg IV Q 2 minutes x 3 doses, stop opioid and notify provider. Try to minimize reversal of analgesia especially in end-of-life patients. Continue monitoring un til discharge criteria are met for a min imum of 2 hours. For ordered doses up to 2mg give IVP. Give each 0.4mg over 15 seconds in emergency situations. For non- emergent situations further dilute in 9mL of NS to facilitate titration of response., PACU/Phase II ondansetron (ZOFRAN) injection 4 mg(Linked Group 1) 4 mg, Intravenous, EVERY 30 MIN PRN, elli sea, vomiting, Administer over 2-5 Minutes, Starting Fri08/15/17 at 1735, For 2 doses, MAX total dose = 8 mg, including OR dosing. This is step 1 of nausea and vom iting management. If not resolved in 15 minutes, then go to step 2 [prochlorperazine (COMPAZINE) if ordered]. Irritant. For ordered doses up to 4 mg, give IV Push undiluted over 2-5 minutes., PACU/Phase II ondansetron (ZOFRAN-ODT) ODT tab 4 mg(Linked Group 1) 4 mg, Oral, EVERY 30 MIN PRN, nausea, vo miting, Starting Fri08/15/17 at 1735, For 2 doses, MAX total dose = 8 mg, including OR dosing. This is step 1 of nausea and vomiting management. If not resolved in 15 minutes, then go to step 2 [prochlor perazine (COMPAZINE) if ordered]. With dry hands, peel back foil backing and gently remove tablet; do not push oral disintegrating tablet through foil backing; ad test engine evaluator immediately on tongue and oral disintegrating tablet dissolves in seconds; then swallow with saliva; liquid not required., PACU/Phase II oxyCODONE IR (ROXICODONE) tablet 5 mg (COMPLETED) 1808 (Given - Provider: Carly Paris RN) 5 mg, Oral, ONCE PRN, other, pain contro l or improvement in physical function.??, Starting Fri08/15/17 at 1710, For 1 dose, Notify provider to assess for uncontrolled pain or analgesic side effects., Post-procedure prochlorperazine (COMPAZINE) injection 10 mg 10 mg, Intravenous, EVERY 6 HOURS PRN, n ausea, vomiting, Administer over 1-2 Minutes, Starting Fri08/15/17 at 1735, This is Step 2 of nausea and vomiting management. If nausea not resolved in 15 minutes, give metoclopramide (REGLAN) if ordered [step 3 of nausea and vomiting management]. For ordered doses up to 10 mg, give IV Push undiluted. Each 5mg over 1 minute., PACU/Phase II Linked Groups Order Group 1: ondansetron (ZOFRAN-ODT) ODT tab 4 mgJump to med 4 mg, Oral, EVERY 30 MIN PRN, nausea, vo miting, Starting Fri08/15/17 at 1735, For 2 doses
MAX total dose = 8 mg, including OR dosing. This is step 1 of nausea and vomiting management. & amp;nbsp;If not resolved in 15 minutes, then go to step 2 [prochlorperazine (COMPAZINE) if ordered]. With dry hands, peel back foil backing and gently remove tablet; do not push oral disintegra ting tablet through foil backing; admini ster immediately on tongue and oral disintegrating tablet dissolves in seconds; then swallow with saliva; liquid not required.
PACU/Phase II Or ondansetron (ZOFRAN) injection 4 mgJump to med 4 mg, Intravenous, EVERY 30 MIN PRN, elli sea, vomiting, Administer over 2-5 Minutes, Starting Fri08/15/17 at 1735, For 2 doses
MAX total dose = 8 mg, including OR dosing. This is step 1 of nausea and vomiting management. If not resolved in 15 minutes, then go to step 2 [prochlorperazine (COMPAZINE) if ordered]. Irritant. For ordered doses up to 4 mg, give IV Push undiluted over 2-5 minutes.
PACU/Phase II documented in this encounter Additional Health Concerns Assessment Noted Time PHQ-9 Depression Total Score: 1 08/09/2017 7:58 AM DENTURE MODEL MAKER documented as of this encounter Care Teams Skin Care Consultant Relationship Specialty Start Date End Date Mike Canales MD PCP - General Family Practice 08/06/17 Mike Canales MD PCP - Assigned PCP 08/10/17 09/08/18 Mike Canales MD Assigned PCP 08/10/17 08/12/20 documented as of this encounter
--- OUTSIDE RECORDS SUMMARY | 2022-04-15 18:57 | XMS_ITS | Encounter Summary ---
:1985 Author Organization Allison Address [facility] [place] [address] Care Team Providers Name Role Phone Mike Canales MD Primary Care Provider Unavailable Mike Canales MD Unavailable Unavailable Mike Canales MD Unavailable Unavailable Reason for Visit Auth/Cert Specialty Diagnoses / Procedures Referred By Contact Refer red To Contact Surgery Diagnoses Post Tibial Tendon Dysfunction Rh Periop Services Procedures RECESSION GASTROCNEMIUS OSTEOTOMY FOOT [address] [place], [place] [address] Phone: Fax: Referral ID Status Reason Start Date Expiration Date Visits Requ ested Visits Authorized [id number] 1 1 Encounter Details Date Type Department Care Team Description 08/15/2017 Anesthesia Event [facility] Bora Abraham MD [facility] ANESTHESIA [id number] [place], [place] [address] [facility] Mirela Salas, MOLD FORMS BUILDER RESPITE WORKER [address] [place], [place] [id number] [address] [place] [address] Anesthesia Record Procedure Summary Procedure Name Responsible Anesthesia Start Anesthesia Stop Anesthesiologist Time Time 1. Gastrocnemius Faisal Abraham MD 08/15/17 1445 8 1711 recession, right. 2. Lateral column lengthening, right. 3. Cotton osteotomy, right. 4. Flexor digitorum longus transfer to navicular, right. 5. Spring ligament reinforcement/reconstr uction, right. (Right: Leg) Events Date Time Event Comment 08/15/2017 1425 Non-OR Block Start Carson fermin 1440 Non-OR Block Stop Carson Richardsonelisa avelar 1445 An Start 1449 An Start Data 1458 An Induction 1459 AN START SEVO 1500 An LMA 1505 MD Present 1506 AN INCISION 1506 An Tourn Inflated 1508 an donna now 1524 MD Present 1619 MD Present 1649 AN END SEVO 1659 Quick Note Patient awake to commands with good respiratory effort, LMA cecy gay, oxygen per face mask to PACU. 1700 LMA Removed 1702 an stop data 1711 An Stop Electronically s igned by Faisal Abraham on August 15, 2017 5:36 PM Name Total midazolam 1mg/mL 4 mg fentaNYL (SUBLIMAZE) injection 200 mcg propofol (DIPRIVAN) injection 10 mg/mL vial 200 mg propofol infusion (mcg/kg/min) 500.83 mg glycopyrrolate 0.2mg/mL 0.2 mg ondansetron 2mg/mL 4 mg dexamethasone 4 mg/mL 4 mg ePHEDrine 50mg/mL 5 mg clindamycin (CLEOCIN) infusion 900 mg 900 mg lidocaine 1 % 1 mL 30 mg ropivacaine 0.75% 20 mL lidocaine 2% with EPINEPHrine 1:200,000 15 mL lactated ringers infusion 1,800 mL Agents Name NO HELIOX O2 N2O Air Exp Sevoflurane Exp Isoflurane Exp Desflurane Exp N2O Ins Sevoflurane Ins Isoflurane Ins Desflurane O2 Auxiliary Blood No blood administrations on file. Lines, Drains, and Airways Type Details Placement Removal Incision/Surgical Site 08/15/17; 1529; Right; 08/15/17 1529 by Ankle; incisions x4 Osmel Zamora RN ankle and foot Peripheral IV 08/15/17; (PRINCIPAL GIFTS OFFICER); 18 G; 08/15/17 0000 by 08/15/17 1850 by Right; Hand Leanna Causey Willer, Brid get M RN RN Retired Non-Surgical 08/15/17; 1500; Easy 08/15/17 1500 by 08/15 1700 by Airway with oral airway; Shiv Topete, Stock, Demond, MOLD FORMS BUILDER Intravenous; Easy; 4; MOLD FORMS BUILDER RESPITE WORKER RESPITE WORKER laryngeal mask airway; Equal, clear and bilateral; RESPITE WORKER; kp documented in this encounter Social History Tobacco Use Types Packs/Day Years Used Date Smoking Tobacco: Former Smokeless Tobacco: Former Alcohol Use Standard Drinks/Week Comments No 0 (1 standard drink = 0.6 oz pure alcoho l) Sex Assigned at Date Recorded Not on file documented as of this encounter OR Notes Anesthesia Procedure Notes - Carson Zapien MD - 08/16/2017 6:06 PM COPY SUPERVISOR Associated Order(s): ANE PERIPHERAL/PARAVETEBRAL BLOCK Peripheral nerve/Neuraxial procedure note : Sciatic Pre-Procedure Performed by CARSON ZAPIEN Referred by [facility] Location: Pre-Anesthestic Checklist: patient identified, IV checked, site marked, risks and benefits discussed, informed consent, monitors and equipment checked, pre-op evaluation, at physician/surgeon's requestand post-op pain management Timeout Correct Patient: Yes Correct Procedure: Yes Correct Site: Yes Correct Laterality: Yes Correct Position: Yes Site Marked: Yes . Procedure Documentation . Procedure: right Sciatic. Ultrasound used to identify targeted nerve, plexus, or vascular marker and placed a needle adjacentto it., Ultrasound was used to visualize the spread of the anesthetic in close proximity to the above stated nerve. Patient Prep;mask, sterile gloves, povidone-iodine 7.5% surgical scrub. . Needle: insulated, short bevel Needle Gauge: 20. Needle Length (Inches) 4 Insertion Method: Single Shot. Assessment/Narrative Paresthesias: No. Injection made incrementally with aspirations every 5 mL.. The placement was negative for: blood aspirated, painful injection and site bleeding. Bolus given via needle.. Secured via. Complications: none. Test dose of mL at. Test dose negative for signs of intravascular, subdural or intrathecal injection. Comments: The surgeon has given a verbal order transferring care of this patient to me for the performance of a regional analgesia block for post-op pain control. It is requested of me because I am uniquely trained and qualified to perform this block and the surgeon is neither trained nor qualified to perform this procedure. SUPERVISOR Anesthesia Postprocedure Evaluation - Scottie Martin MD - 08/15/2017 6:20 PM CST Patient: Sterling Iqbal Procedure(s): Gastroc recession, lateral column lengthening, cotton osteotomy, flexor digitorum longus transfer, medial soft tissue reconstruction, right foot - Wound Class: I-Clean - Wound Class: I-Clean Diagnosis:Post Tibial Tendon Dysfunction Diagnosis Additional Information: Pre-operative diagnosis: Post Tibial Tendon Dysfunction, right Gastrocnemius contracture, right Post-operative diagnosis Same Procedure: Procedure(s): Gastroc recession, lateral column lengthening, cotton osteotomy, flexor digitorum longus transf, er,medial soft tissue reconstruction, right foot - Wound Class: I-Clean - Wound Class: I-Clean Anesthesia Type: General, LMA, Peripheral Nerve Block for post-op pain at surgeon's request Note: Anesthesia Post Evaluation Patient location during evaluation: PACU Patient participation: Able to fully participate in evaluation Level of consciousness: awake Pain management: adequate Airway patency: patent Cardiovascular status: acceptable Respiratory status: acceptable Hydration status: acceptable PONV: none Anesthetic complications: None Last vitals: Vitals: 08/15/17 1730 08/15/17 1742 08/15/17 1802 BP: 105/63 117/74 Resp: 12 11 16 Temp: 97.9 ??F (36.6 ??C) 97.9 ??F (36.6 ??C) SpO2: 98% 99% 99% Electronically Signed By: Scottie Martin MD August 15, 2017 6:20 PM SUPERVISOR Anesthesia Postprocedure Evaluation - Faisal Abraham MD - 08/15/2017 5:37 PM CST Patient: Sterling Iqbal Procedure(s): Gastroc recession, lateral column lengthening, cotton osteotomy, flexor digitorum longus transfer, medial soft tissue reconstruction, right foot - Wound Class: I-Clean - Wound Class: I-Clean Diagnosis:Post Tibial Tendon Dysfunction Diagnosis Additional Information: Pre-operative diagnosis: Post Tibial Tendon Dysfunction, right Gastrocnemius contracture, right Post-operative diagnosis Same Procedure: Procedure(s): Gastroc recession, lateral column lengthening, cotton osteotomy, flexor digitorum longus transf, er,medial soft tissue reconstruction, right foot - Wound Class: I-Clean - Wound Class: I-Clean Anesthesia Type: General, LMA, Peripheral Nerve Block for post-op pain at surgeon's request Note: Anesthesia Post Evaluation Patient location during evaluation: PACU Patient participation: Able to fully participate in evaluation Level of consciousness: awake and alert Pain management: adequate Airway patency: patent Cardiovascular status: acceptable Respiratory status: acceptable Hydration status: acceptable PONV: none Anesthetic complications: None Last vitals: Vitals: 08/15/17 1710 08/15/17 1715 08/15/17 1730 BP: 120/78 117/59 105/63 Resp: 27 14 12 Temp: SpO2: 100% 99% 98% Electronically Signed By: Faisal Abraham MD August 15, 2017 5:37 PM SUPERVISOR Anesthesia Preprocedure Evaluation - Carson Zapien MD - 08/15/2017 9:05 AM CST Anesthesia Evaluation . ROS/MED HX ENT/Pulmonary: (-) tobacco use, sleep apnea and Other pulmonary disease Neurologic: (-) TIA, Other neuro hx and Dementia Cardiovascular: (-) hypertension, CAD, CHF, arrhythmias, pulmonary hypertension and dyslipidemia METS/Exercise Tolerance: Hematologic: (-) anemia Musculoskeletal: (+) arthritis, , , - GI/Hepatic: (-) GERD, hiatal hernia and hepatitis Renal/Genitourinary: (-) renal disease Endo: (-) Type I DM, Type II DM, thyroid disease, chronic steroid usage, other endocrine disorder and obesity Psychiatric: (-) psychiatric history Infectious Disease: - neg infectious disease ROS Malignancy: - no malignancy Other: - neg other ROS Physical Exam Airway Mallampati: II TM distance: >3 FB Neck ROM: full Dental Cardiovascular Rhythm and rate: regular and normal (-) no murmur Pulmonary breath sounds clear to auscultation Other findings: Lab Test 08/08/17 0738 WBC 5.3 HGB 15.0 MCV 89 PLT 246 Lab Test 08/08/17 0738 NA 140 POTASSIUM 3.7 CHLORIDE 105 CO2 27 BUN 15 CR 0.89 ANIONGAP 8 MICHEL 9.2 GLC 55* Anesthesia Plan History & Physical Review History and physical reviewed and following examination; no interval change. ASA Status: 1 . NPO Status: > 8 hours Plan for General, LMA and Periph. Nerve Block for postop pain with Propofol induction. Maintenance will be Balanced. PONV prophylaxis: Ondansetron (or other 5HT-3) and Dexamethasone or Solumedrol Postoperative Care Postoperative pain management: IV analgesics, Oral pain medications and Peripheral nerve block (Single Shot). Consents Anesthetic plan, risks, benefits and alternatives discussed with: Patient.. . SUPERVISOR documented in this encounter Miscellaneous Notes Addendum Note - Carson Zapien MD - 08/16/2017 6:10 PM CST Addendum created 08/16/171809 by Carson Zapien MD Anesthesia Event edited, Anesthesia Intra Blocks edited, Anesthesia Intra Meds edited, Child order released for a procedure order, Procedure Event Log accessed, Sign clinical note SUPERVISOR documented in this encounter Plan of Treatment Not on filedocumented as of this encounter Procedures Procedure Name Priority Date/Time Associated Diagnosis Comme nts ANE Routine 08/16/2017 6:08 PM COPY SUPERVISOR PERIPHERAL/PARAVETEBRAL BLOCK Procedure Note - Cristal Zapien MD - 08/16/2017 6:06 PM CSTThis note is in progress. Formatting of this note migh t be different from the original. Peripheral nerve/Neuraxial p rocedure note : Sciatic Pre-Procedure Performed by CARSON ZAPIEN Referred by [facility] Location: Pre-Anesthestic Checklist: p atient identified, IV checked, site marked, risks and benefits discussed, informed consent, monitors and equipment checked, pre-op evaluation, at physician/surgeon's request and post-op pain management Timeout Correct Patient: Yes Correct Procedure: Yes Correct Site: Yes Correct Laterality: Yes Correct Position: Yes Site Marked: Yes . Procedure Documentation . Procedure: right Sciatic. Ultrasound used to identify targeted nerve, plexus, or vascular marker and placed a needle adjacent to it., Ultrasound was used to visualize the spread of the anesthetic in close proximity to the above stated nerve. Patient Prep;mask, sterile g loves, povidone-iodine 7.5% surgical scrub. . Needle: insulated, short bevel Needle Gauge: 20. Needle Length (Inches) 4 Insertion Method: Single Shot. Assessment/Narrative Paresthesias: No. Injection made incrementally with aspirations every 5 mL.. The placement was negative for: blood aspirated, painful injection and site bleeding. Bolus given via needle.. Secured via. Complications: none. Test do se of mL at. Test dose negative for signs of intravascular, subdural or intrathecal injection. Comments: The surgeon has given a verbal order transferring care of this patient to me for the performance of a regional an algesia block for post-op pain control. It is requested of me because I am uniquely trained and qualified to perform this block and the surgeon is neither trained nor qualified to perform this procedure. documented in this encounter Visit Diagnoses Not on filedocumented in this encounter Administered Medications Inactive Administered Medications - up to 3 most recent administrations Medication Order MAR Action Action Date Dose Rate Site clindamycin (CLEOCIN) infusion 900 Given 08/15/2017 2:45 PM COPY SUPERVISOR 900 mg mg Routine, 900 mg, Intravenous, ONCE, On Fri08/15/17 at 1430, For 1 dose, Indications: Perioperative Pharmacoprophylaxis, Pre-procedure dexamethasone (DECADRON) injection Given 08/15/2017 2:58 PM COPY SUPERVISOR 4 mg Intravenous, PRN, Administer over 1 Minutes, Starting on Fri08/15/17 at 1458, Anesthesia Intra-op ePHEDrine injection Given 08/15/2017 3:24 PM COPY SUPERVISOR 5 mg PRN, Starting on Fri08/15/17 at 1524, Anesthesia Intra-op fentaNYL (PF) (SUBLIMAZE) injection Given 08/15/2017 2:58 PM COPY SUPERVISOR 100 mcg PRN, moderate to severe pain, Administer over 3-5 Minutes, Starting on Fri08/15/17 at 1458, Anesthesia Intra-op Given 08/15/2017 2:25 PM COPY SUPERVISOR 100 mcg glycopyrrolate (ROBINUL) injection Given 08/15/2017 2:58 PM COPY SUPERVISOR 0.2 mg PRN, Administer over 1-2 Minutes, Starting on Fri08/15/17 at 1458, Anesthesia Intra-op lactated ringers infusion New Bag 08/15/2017 2:45 PM COPY SUPERVISOR at 25 mL/hr, Intravenous, CONTINUOUS, IF patient NOT on dialysis., Pre-procedure, Starting on Fri08/15/17 at 0945, Until Fri08/15/17 at 1703 New Bag 08/15/2017 2:01 PM COPY SUPERVISOR 25 mL/hr lidocaine 1 % 1 mL Given 08/15/2017 2:58 PM COPY SUPERVISOR 30 mg 1 mL, Other, EVERY 1 HOUR PRN, mild pain with VAD insertion or accessing implanted port, Starting on Fri08/15/17 at 0929, Do NOT give if patient has a history of allergy to any local anesthetic or any agnieszka product. MAX dose 1 mL subcutaneous OR intradermal in divided doses., Pre-procedure lidocaine 2%-EPINEPHrine 1:200,000 injec tion Given 08/15/2017 2:30 PM COPY SUPERVISOR 15 mLs PRN, Starting on Fri08/15/17 at 1430, Anesthesia Intra-op midazolam (VERSED) injection Given 08/15/2017 2:28 PM COPY SUPERVISOR 2 mg Administer over 2 Minutes, PRN, anxiety, Starting on Fri08/15/17 at 1425, Anesthesia Intra-op Given 08/15/2017 2:25 PM COPY SUPERVISOR 2 mg ondansetron (ZOFRAN) injection Given 08/15/2017 3:03 PM COPY SUPERVISOR 4 mg PRN, nausea, vomiting, Administer over 2-5 Minutes, Starting on Fri08/15/17 at 1503, Anesthesia Intra-op propofol (DIPRIVAN) infusion Rate/Dose 08/15/2017 3:24 70 mcg/kg/min 33 mL/hr Intravenous, CONTINUOUS PRN, Change PM COPY SUPERVISOR Starting on Fri08/15/17 at 1458, Anesthesia Intra-op New Bag 08/15/2017 2:58 PM COPY SUPERVISOR 100 mcg/kg/min 47.1 mL/hr propofol (DIPRIVAN) injection 10 mg/mL v ial Given 08/15/2017 2:58 PM COPY SUPERVISOR 200 mg PRN, Starting on Fri08/15/17 at 1458, Anesthesia Intra-op ropivacaine (NAROPIN) injection Given 08/15/2017 2:30 PM COPY SUPERVISOR 20 mLs PRN, Starting on Fri08/15/17 at 1430, Anesthesia Intra-op documented in this encounter Additional Health Concerns Assessment Noted Time PHQ-9 Depression Total Score: 1 08/09/2017 7:58 AM COPY SUPERVISOR documented as of this encounter Care Teams Piler Relationship Specialty Start Date End Date Mike Canales MD PCP - General Family Practice 08/06/17 Mike Canales MD PCP - Assigned PCP 08/10/17 09/08/18 Mike Canales MD Assigned PCP 08/10/17 08/12/20 documented as of this encounter
--- OUTSIDE RECORDS SUMMARY | 2022-04-15 18:57 | XMS_ITS | Encounter Summary ---
:1985 Author Organization [place] Address [address] [place] [address] Care Team Providers Name Role Phone Mike Canales MD Primary Care Provider Unavailable Mike Canales MD Unavailable Unavailable Reason for Visit Reason Comments Foot Pain Encounter Details Date Type Department Care Team Description 03/06/[address] [facility] Cortez Higgins of right foot, initial encounter; [facility] Emergency Dep t MD Vicente Crush injury [address] [facility] [place], [place] [address] [address] [phone] [address] [place], [place] [id number] (Wo rk) Social History Tobacco Use Types Packs/Day Years Used Date Smoking Tobacco: Former Smokeless Tobacco: Former Alcohol Use Standard Drinks/Week Comments No 0 (1 standard drink = 0.6 oz pure alcoho l) Sex Assigned at Date Recorded Not on file COVID-19 Exposure Response Date Recorded In the last month, have you been in contact with No / Unsure 03/06/2020 12:36 PM CDT someone who was confirmed or suspected to have Coronavirus / COVID-19? documented as of this encounter Last Filed Vital Signs Vital Sign Reading Time Taken Comments Blood Pressure 145/88 03/06/2020 12:37 PM CDT Pulse 71 03/06/2020 12:37 PM CDT Temperature 36.6 ??C (97.9 ??F) 03/06/2020 12:37 PM CDT Respiratory Rate 18 03/06/2020 12:37 PM CDT Oxygen Saturation 100% 03/06/2020 12:37 PM CDT Inhaled Oxygen Concentration - - Weight - - Height - - Body Mass Index - - documented in this encounter Discharge Instructions Discharge InstructionsCortez Higgins MD - 03/06/2020 2:30 PM CDT When able, elevate your foot above the level of your heart to help with swelling Use ice bags for 15-20 minutes every 1-2 hours for next 12-24 hours to help with swelling You can also use an maura bandage for comfort and help with swelling Avoid activities that cause increased pain gentle range of motion is okay, and actually helpful to get you back to work/school faster. Weight bear as tolerated by pain, use crutches/hard soled shoe until then AttachmentsThe following attachments cannot be sent through Care Everywhere.Bone Bruise (Bone Contusion), Treatment for ([place] Citizen)Foot Contusion ([place] Citizen) Abrasions ([place] Citizen)documented in this encounter Medications at Time of Discharge Medication Sig Dispensed Refills Start Date End Date acetaminophen (TYLENOL) Take 2-3 tablets 50 tablet 0 2017 325 MG (650-975 mg) by mouth tabletIndications: every 6 hours Tibialis posterior tendinitis, right gabapentin (NEURONTIN) Take 1 capsule (300 mg) 9 capsule 0 08/15/2017 300 MG by mouth 3 times daily capsuleIndications: Tibialis posterior tendinitis, right HYDROmorphone (DILAUDID) Take 1-2 tablets (2-4 12 tablet 0 08/18/2017 2 MG tablet mg) by mouth every 4 hours as needed for severe pain or pain hydrOXYzine (ATARAX) 25 Take 1 tablet (25 [...] tendinitis, right documented as of this encounter ED Notes Donita Lock RN - 03/06/2020 12:36 PM CDT Presents to the ED with right foot pain. States a bumper was dropped on his foot at work and has hadpain and swelling since. Cortez Higgins MD - 03/06/2020 12:31 PM CDT [facility] ED Provider Note [facility] Emergency Department 5:42 PM 03/06/2020 Sterling Iqbal 34 year oldmale Chief Complaint Patient presents with ??? Foot Pain HPI: 34 y M h/o R foot reconstruction here with R foot pain after workplace injury in which a bumber (200ish lbs) fell onto R foot. Immedaite throbbing and aching pain, worse with weight bearing. + assoc tingling into toes. Denies any other injury. No meds prior to arrival. ROS: ROS is negative other than mentioned above in HPI No past medical history on file. Past Surgical History: Procedure Laterality Date ??? DENTAL SURGERY [place] teeth ??? OSTEOTOMY FOOT Right 08/15/2017 Procedure: OSTEOTOMY FOOT;; Surgeon: Andrey La MD; Location: [facility] OR ??? RECESSION GASTROCNEMIUS Right 08/15/2017 Procedure: RECESSION GASTROCNEMIUS; 1. Gastrocnemius recession, right. 2. Lateral column lengthening, right. 3. Cotton osteotomy, right. 4. Flexor digitorum longus transfer to navicular, right. 5. Spring ligament reinforcement/reconstruction, right. ; Surgeon: Andrey La MD; Location: [facility] OR Social History Socioeconomic History ??? Marital status: Spouse name: Not on file ??? Number of children: Not on file ??? Years of education: Not on file ??? Highest education level: Not on file Occupational History ??? Not on file Social Needs ??? Financial resource strain: Not on file ??? Food insecurity Worry: Not on file Inability: Not on file ??? Transportation needs Medical: Not on file Non-medical: Not on file Tobacco Use ??? Smoking status: Former Smoker ??? Smokeless tobacco: Former User Substance and Sexual Activity ??? Alcohol use: No ??? Drug use: No ??? Sexual activity: Yes Partners: Female Lifestyle ??? Physical activity Days per week: Not on file Minutes per session: Not on file ??? Stress: Not on file Relationships ??? Social connections Talks on phone: Not on file Gets together: Not on file Attends rastafari service: Not on file Active member of club or organization: Not on file Attends meetings of clubs or organizations: Not on file Relationship status: Not on file ??? Intimate partner violence Fear of current or ex partner: Not on file Emotionally abused: Not on file Physically abused: Not on file Forced sexual activity: Not on file Other Topics Concern ??? Parent/sibling w/ CABG, [place] or angioplasty before 65F 55M? Not Asked Social History Narrative ??? Not on file No current facility-administered medications for this encounter. Current Outpatient Medications Medication ??? acetaminophen (TYLENOL) 325 MG tablet ??? gabapentin (NEURONTIN) 300 MG capsule ??? HYDROmorphone (DILAUDID) 2 MG tablet ??? hydrOXYzine (ATARAX) 25 MG tablet ??? ibuprofen (ADVIL/MOTRIN) 600 MG tablet ??? order for DME ??? oxyCODONE IR (ROXICODONE) 5 MG tablet Allergies Allergen Reactions ??? Amoxicillin Hives Physical Exam BP (!) 145/88 Pulse 71 Temp 97.9 ??F (36.6 ??C) Resp 18 SpO2 100% Gen: Resting comfortably CV: ppi, regular Resp: speaking in full sentences with any resp distress Ext: Dorsum R mid fot there is moderate STS and centrally located superficial abrasion. Soft tissue is not tense. Distal SILT, able to fire toe flex/ext. No palpable bony deformity or midfoot instability. Distal perfusion intact. Skin: warm dry well perfused Neuro: Alert, no gross motor or sensory deficits, gait stable Labs and Imaging: Labs Ordered and Resulted from Time of ED Arrival Up to the Time of Departure from the ED - No data to display Foot XR, G/E 3 views, right Final Result IMPRESSION: Postoperative changes from calcaneal osteotomy. This has healed and there is no evidence of complication. There is no evidence of fracture or other acute pathology. MAURA ANDERSON MD Medications Administered in ED: Medications - No data to display Medical Decision Makin y M here after crush injury R foot. Radiograph negative for fracutre/dislocation, lis franc injury or issue with previous reconstruction. DC home and treat conservatively for a soft tissue injury and superficial abrasion. Diagnosis: ICD-10-CM 1. Contusion of right foot, initial encounter S90.31XA 2. Crush injury T14.8XXA Disposition: home Cortez Higgins MD [facility] Cortez Higgins MD 03/06/20 1746 documented in this encounter Plan of Treatment Not on filedocumented as of this encounter Procedures Procedure Name Priority Date/Time Associated Diagnosis Comme nts XR FOOT RIGHT G/E 3 STAT 03/06/2020 1:33 PM Re sults for this VIEWS CDT procedure are i n the results section. documented in this encounter Results Foot XR, G/E 3 views, right (03/06/2020 1:33 PM CDT) Anatomical Region Laterality Modality Foot, Ankle Right Computed Radiography Specimen (Source) Anatomical Location Collection Method / Collectio n Time Received Time / Laterality Volume Impressions 03/06/2020 2:06 PM CDT IMPRESSION: Postoperative changes from calcaneal osteotomy. This has healed and there is no evidence of compl ication. There is no evidence of fracture or other acute pathology. MAURA ANDERSON MD Narrative 03/06/2020 2:06 PM CDT RIGHT FOOT THREE OR MORE VIEWS ?? 03/06/2020 1:33 PM HISTORY: ??Crush injury, pain. Procedure Note Maura Anderson MD - 03/06/2020Form atting of this note might be different from the original. RIGHT FOOT THREE OR MORE VIEWS 03/06/2020 1:33 PM HISTORY: Crush injury, pain. IMPRESSION: Postoperative changes from c alcaneal osteotomy. This has healed and there is no evidence of compl ication. There is no evidence of fracture or other acute pathology. 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
--- OUTSIDE RECORDS SUMMARY | 2022-04-15 18:57 | XMS_ITS | Encounter Summary ---
:1985 Author Organization [place] Address [address] [place] [address] Care Team Providers Name Role Phone Mike Canales MD Primary Care Provider Unavailable Mike Canales MD Unavailable Unavailable Mike Canales MD Unavailable Unavailable Reason for Visit JOCELYNN Physical Therapy (Routine) - Closed Specialty Diagnoses / Procedures Referred By Contact Refer red To Contact Physical Therapy Diagnoses >4 (R) ankle and knee / Freddy Riggins MD @ [facility] / Pref1 Andrey La [facility] Procedures EXTREMITY INITIAL MD [facility] Therapy - [facility] ORTHOPEDICS [address] [address] [facility] [phone] [place] [address] Referral ID Status Reason Start Date Expiration Date Visits Requ ested Visits Authorized [id number] Closed 03/05/2017 07/10/2018 30 30 Encounter Details Date Type Department Care Team Description 03/27/2018 Therapy Visit [facility] Chente Franks, Pain in joint involving ankle and foot, right (Primary Dx); Rehabilitation PT Aftercare following surgery of the [facility] Services [address] ATHLETIC [facility] [phone] [facility] [phone] [place] [address] Social History Tobacco Use Types Packs/Day Years Used Date Smoking Tobacco: Former Smokeless Tobacco: Former Alcohol Use Standard Drinks/Week Comments No 0 (1 standard drink = 0.6 oz pure alcoho l) Sex Assigned at Date Recorded Not on file documented as of this encounter Plan of Treatment Not on filedocumented as of this encounter Procedures Procedure Name Priority Date/Time Associated Diagnosis Comme nts [facility] NEUROMUSCULAR Routine 03/27/2018 2:18 PM Pain in joint inv olving RE-EDUCATION CDT ankle and foot, right Aftercare following surgery of the musculoskeletal system [facility] THERAPEUTIC Routine 03/27/2018 2:18 PM Pain in joint invol ving EXERCISES CDT ankle and foot, right Aftercare following surgery of the musculoskeletal system [facility] HOT OR COLD PACKS Routine 03/27/2018 2:18 PM Pain in joint involving THERAPY CDT ankle and foot, right Aftercare following surgery of the musculoskeletal system documented in this encounter Visit Diagnoses Diagnosis Pain in joint involving ankle and foot, right - Primary Aftercare [facility] the [facility] Aftercare following surgery of the [facility], [facility] documented in this encounter Additional Health Concerns Assessment Noted Time PHQ-9 Depression Total Score: 1 08/09/2017 7:58 AM CLAIMS COUNSEL documented as of this encounter Care Teams Manager Online Relationship Specialty Start Date End Date Mike Canales MD PCP - General Family Practice 08/06/17 Mike Canales MD PCP - Assigned PCP 08/10/17 09/08/18 Mike Canales MD Assigned PCP 08/10/17 08/12/20 documented as of this encounter
--- OUTSIDE RECORDS SUMMARY | 2022-04-15 18:57 | XMS_ITS | Encounter Summary ---
:1985 Author Organization [place] Address [address] [place] [address] Care Team Providers Name Role Phone Mike Canales MD Primary Care Provider Unavailable Mike Canales MD Unavailable Unavailable Mike Canales MD Unavailable Unavailable Reason for Visit JOCELYNN Physical Therapy (Routine) - Closed Specialty Diagnoses / Procedures Referred By Contact Refer red To Contact Physical Therapy Diagnoses >4 (R) ankle and knee / Freddy Riggins MD @ [facility] / Pref1 Andrey La [facility] Procedures EXTREMITY INITIAL MD [facility] Therapy - [facility] ORTHOPEDICS [address] [address] [facility] [phone] [place] [address] Referral ID Status Reason Start Date Expiration Date Visits Requ ested Visits Authorized [id number] Closed 03/05/2017 07/10/2018 30 30 Encounter Details Date Type Department Care Team Description 03/19/[address] [facility] Chetne Franks, Pain in joint involving ankle and foot, right (Primary Dx); Rehabilitation PT Aftercare following surgery of the [facility] Services [address] ATHLETIC [facility] [phone] [facility] [phone] [place] [address] Social History Tobacco Use Types [...] Name Priority Date/Time Associated Diagnosis Comme nts [facility] NEUROMUSCULAR Routine 03/19/2018 1:48 PM Pain in joint inv olving RE-EDUCATION CDT ankle and foot, right Aftercare following surgery of the musculoskeletal system [facility] THERAPEUTIC Routine 03/19/2018 1:48 PM Pain in joint invol ving EXERCISES CDT ankle and foot, right Aftercare following surgery of the musculoskeletal system documented in this encounter Visit Diagnoses Diagnosis Pain in joint involving ankle and foot, right - Primary Aftercare following surgery of the muscu loskeletal system Aftercare following surgery of the [facility], NEC documented in this encounter Additional Health Concerns Assessment Noted Time PHQ-9 Depression Total Score: 1 08/09/2017 7:58 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
--- OUTSIDE RECORDS SUMMARY | 2022-04-15 18:57 | XMS_ITS | Clinical Summary ---
:1985 Author Organization [place] Address [address] [place] [address] Care Team Providers Name Role Phone Mike Canales MD Primary Care Provider Unavailable Allergies Active Allergy Reactions Severity Noted Date Comments Amoxicillin Hives 07/15/2017 Medications Medication Sig Dispensed Refills Start Date End Date Status order for Equipment being 1 Device 0 07/15/2017 Act shakira DMEIndications: ordered: ankle Chronic pain of right brace ankle, Pes planus of both feet acetaminophen Take 2-3 tablets 50 tablet 0 08/15/2017 Active (TYLENOL) 325 MG (650-975 mg) by tabletIndications: mouth every 6 hours Tibialis posterior tendinitis, right ibuprofen Take 1 tablet (600 50 tablet 0 08/15/2017 Active (ADVIL/MOTRIN) 600 MG mg) by mouth every tabletIndications: 6 hours Tibialis posterior tendinitis, right oxyCODONE IR Take 1-2 tablets 24 tablet 0 08/15/2017 Active (ROXICODONE) 5 MG (5-10 mg) by mouth tabletIndications: every 4 hours as Tibialis posterior needed for tendinitis, right breakthrough pain gabapentin Take 1 capsule (300 9 capsule 0 08/15/2017 Active (NEURONTIN) 300 MG mg) by mouth 3 capsuleIndications: times daily Tibialis posterior tendinitis, right hydrOXYzine (ATARAX) Take 1 tablet (25 30 tablet 0 08/15/2017 Active 25 MG mg) by mouth every tabletIndications: 6 hours as needed Tibialis posterior for itching (spasm tendinitis, right and nausea) HYDROmorphone Take 1-2 tablets 12 tablet 0 08/18/2017 Active (DILAUDID) 2 MG (2-4 mg) by mouth tablet every 4 hours as needed for severe pain or pain Active Problems Problem Noted Date Chronic pain of right ankle 02/20/2017 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/2017 Chronic pain of right knee 02/20/2017 Resolved Problems Problem Noted Date Resolved Date Pain in joint involving ankle and foot, right 10/10/2017 02/06/2018 Aftercare following surgery of the musculoskeletal system 02/06/2018 Tibialis posterior tendinitis, right 03/05/2017 Acute pain of right knee 03/05/2017 09/03/2017 Immunizations Name Administration Dates Next Due TDAP Vaccine (Boostrix) 02/18/2015 Family History Medical History Relation Comments Hypertension Mother Relation Status Comments Father Alive Mother Alive Social History Tobacco Use Types Packs/Day Years Used Date Smoking Tobacco: Former Smokeless Tobacco: Former Alcohol Use Standard Drinks/Week Comments No 0 (1 standard drink = 0.6 oz pure alcoho l) Sex Assigned at Date Recorded Not on file Last Filed Vital Signs Vital Sign Reading Time Taken Comments Blood Pressure 145/88 03/06/2020 12:37 PM CDT Pulse 71 03/06/2020 12:37 PM CDT Temperature 36.6 ??C (97.9 ??F) 03/06/2020 12:37 PM CDT Respiratory Rate 18 03/06/2020 12:37 PM CDT Oxygen Saturation 100% 03/06/2020 12:37 PM CDT Inhaled Oxygen Concentration - - Weight 78.5 kg (173 lb 1.6 oz) 08/15/2017 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 Height 179.7 cm (5' 10.75) 08/15/2017 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 Body Mass Index 24.31 08/15/2017 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 Plan of Treatment Health Maintenance Due Date Last Done Comments ADVANCE CARE PLANNING 1985 ANNUAL REVIEW OF HM ORDERS 1985 URINE DRUG SCREEN 1985 COVID-19 Vaccine (#1) 1986 HIV SCREENING 2001 HEPATITIS C SCREENING 2004 YEARLY PREVENTIVE VISIT 02/20/2018 02/20/2017 LIPID 2021 PHQ-2 (once per calendar 07/07/2021 08/08/2017, 02/20/2017 year) INFLUENZA VACCINE (#1) 2022 07/02/2019, 07/06/2018, 06/06/2014, Additional history exists DTAP/TDAP/TD IMMUNIZATION 02/18/2025 02/18/2015, 02/28/1998 (3 - Td or Tdap) HEPATITIS B IMMUNIZATION Completed 08/29/1998, 02/28/1998, 01/11/1998, Additional history exists IPV IMMUNIZATION Aged Out No longer eligi ble based on patient 's age to complete this topic MENINGITIS IMMUNIZATION Aged Out No longe r eligible based on patient 's age to complete this topic Pneumococcal Vaccine: Aged Out No longer eligible Pediatrics (0 to 5 Years) based on patient's age and At-Risk Patients (6 to to co mplete this topic 64 Years) Medical Devices Implanted Type Area Insurance Sales Specialist Device Shelf Model / Identifier Expiration Serial / Lot Date Bioraptor Suture [place] Right: [employer] 0 12/09/2021 [id number] / Implanted: Qty: 1 on 08/15/2017 by Andrey Walden MD at [facility] Ankle / [id number] Insurance Payer Benefit Plan / Subscriber ID Effective Phone Address T ype Group Dates WORK COMP WC RISK [id number] 2020-Pres [phone] [id number] [place] [address] PREFERREDONE PREFERREDONE HMO [id number] 2014-Prese [phone] [address] [address] [place] [address] [phone] (Home) [place], [place] NONE (Work) [id number] Worker's Employer 1985 [phone] Compensation 8 (Home) [place] [address] Care Teams Spinner Concrete Pipe Relationship Specialty Start Date End Date Mike Canales MD PCP - General Family Practice 08/06/17
--- OUTSIDE RECORDS SUMMARY | 2022-04-15 18:57 | XMS_ITS | Encounter Summary ---
:1985 Author Organization [facility] Address [address] [place] [address] Care Team Providers Name Role Phone Mike Canales MD Primary Care Provider Unavailable Mike Canales MD Unavailable Unavailable Mike Canales MD Unavailable Unavailable Reason for Visit Auth/Cert Specialty Diagnoses / Procedures Referred By Contact Refer red To Contact Surgery Diagnoses Post Tibial Tendon Dysfunction Rh Periop Services Procedures RECESSION GASTROCNEMIUS OSTEOTOMY FOOT [address] [place], [place] [address] Phone: Fax: Referral ID Status Reason Start Date Expiration Date Visits Requ ested Visits Authorized [id number] 1 1 Encounter Details Date Type Department Care Team Description 08/15/2017 Hospital Encounter [facility] Andrey La Tibialis posterior [place] PreOP/PostOP MD Jaime tendinitis, right [address] [facility] (Primary Dx) [place], [place] [facility] [id number] [phone] [address] [place] [address] Social History Tobacco Use Types Packs/Day Years Used Date Smoking Tobacco: Former Smokeless Tobacco: Former Alcohol Use Standard Drinks/Week Comments No 0 (1 standard drink = 0.6 oz pure alcoho l) Sex Assigned at Date Recorded Not on file documented as of this encounter Last Filed Vital Signs Vital Sign Reading Time Taken Comments Blood Pressure 115/52 08/15/2017 6:50 PM PROFESSIONAL BUILDER Pulse - - Temperature 36.4 ??C (97.6 ??F) 08/15/2017 6:50 PM PROFESSIONAL BUILDER Respiratory Rate 16 08/15/2017 6:50 PM PROFESSIONAL BUILDER Oxygen Saturation 98% 08/15/2017 6:50 PM PROFESSIONAL BUILDER Inhaled Oxygen Concentration - - Weight 78.5 kg (173 lb 1.6 oz) 08/15/2017 9:16 AM PROFESSIONAL BUILDER Height 179.7 cm (5' 10.75) 08/15/2017 9:16 AM PROFESSIONAL BUILDER Body Mass Index 24.31 08/15/2017 9:16 AM PROFESSIONAL BUILDER documented in this encounter Discharge Instructions Discharge [...] with dry cleanser or use white shoe belarusian sparingly. If your cast is made of [...] arm or leg may appear thinner and business services assistant because you haven???t been using it. Your physician will determine how much physical activity is advisable following removal of your cast. REMEMBER: Cast care must continue as long as your cast is on. ESSIONAL BUILDER documented in this encounter Medications at Time [...] days available in the hospital surgical encounter. ESSIONAL BUILDER Source Note - Mike Canales MD - 08/08/2017 7:06 AM PROFESSIONAL BUILDER [facility] [id number] [place] [id number] Dept: [phone] PRE-OP EVALUATION: Today's date: 08/08/2017 Nicolás Mariealexander Mcfarland (: 1985) presents for pre-operative evaluation assessment as requested by Dr. La . He requires evaluation and anesthesia risk assessment prior to undergoing surgery/procedure for treatment of RECESSION GASTROCNEMIUS OSTEOTOMY RIGHT FOOT Date of Surgery/ Procedure: 08/15/17 Time of Surgery/ Procedure: 10:25am Hospital/Surgical Facility: [facility] Primary Physician: Mike Canales Type of [...] History: Procedure Laterality Date ??? DENTAL SURGERY [place] teeth Current Outpatient Prescriptions Medication Sig Dispense [...] his behalf by Rachel Maravilla, a trained senior medical transcriptionist. The creation of this document is based on the provider's statements to the senior medical transcriptionist. Rachel Maravilla 7:17 AM August 08, 2017 [...] NA, POTASSIUM, CR, A1C in the last [address]170 hours. IMPRESSION: Reason for surgery/procedure: Right tibialis posterior tendinitis Diagnosis/reason for consult: preoperative evaluation for assessment of cardiovascular and respiratory disease as well as overall risk assessment and perioperative medical management. The proposed surgical procedure is considered INTERMEDIATE risk. REVISED CARDIAC RISK INDEX The patient has the following serious cardiovascular risks for perioperative complications such as (OH, PE, VFib and 3?? AV Block): No [...] information in this document, created by the senior medical transcriptionist for me, accurately reflects the services I personally performed and the decisions made by me. I have reviewed and approved this document for accuracy prior to leaving the patient care area. August 08, 2017 7:27 AM Signed Electronically by: Mike Canales MD Copy of this evaluation report is provided to requesting physician. [facility] Preop Guidelines ESSIONAL BUILDER documented in this encounter Miscellaneous Notes Op Note - Andrey La MD - 08/15/2017 7:10 PM CST Procedure [...] Spring ligament reinforcement/reconstruction, right. IMPLANTS: Allograft bone, [place] 28, Ultrabraid tape. SURGEON: Andrey La MD STEAM BOX OPERATOR: Korin Arita PA-C ANESTHESIA: Regional plus general. [...] of the right foot and areexamination. ANDREY LA MD MT: Name: NICOLÁS MCFARLAND Account: [id number] : 1985 Procedure Date: 08/15/2017 Document: [id number] ESSIONAL BUILDER Brief Op Note - Andrey La MD - 08/15/2017 4:36 PM CST [facility] Brief Operative Note Pre-operative diagnosis: Post Tibial Tendon Dysfunction, right Gastrocnemius contracture, right Post-operative diagnosis Same Procedure: Procedure(s): Gastroc recession, lateral column lengthening, cotton osteotomy, flexor digitorum longus transfer, medial soft tissue reconstruction, right foot - Wound Class: I-Clean - Wound Class: I-Clean Surgeon(s): Surgeon(s) and Role: * Andrey La MD - Primary * Korin Arita PA-C - Assisting Estimated blood loss: 5 mL Specimens: none Findings: ANES: reg + gen IMPLANTS: [id number] (3.5mm), ultratape, allograft bone ESSIONAL BUILDER documented in this encounter Plan of Treatment Not on filedocumented as of this encounter Procedures Procedure Name Priority Date/Time Associated Diagnosis Comme nts XR SURGERY CONCEPCION Routine 08/15/2017 4:36 PM Result s for this FLUORO LESS THAN 5 PROFESSIONAL BUILDER procedure are in MIN W STILLS the results section. OSTEOTOMY, FOOT, 08/15/2017 2:28 PM Post Tibial Tendon OPEN PROFESSIONAL BUILDER Dysfunction Special Needs Ht- 5' 10 Wt- 177# per H&P RECESSION, MUSCLE, 08/15/2017 2:28 PM PROFESSIONAL BUILDER Post Tibial Tendon GASTROCNEMIUS Dysfunction Special Needs Ht- 5' 10 Wt- 177# per H&P documented in this encounter Results XR Surgery CONCEPCION L/T 5 Min Fluoro w Stills (08/15/2017 4:36 PM PROFESSIONAL BUILDER) Specimen (Source) Anatomical Location Collection Method / Collectio n Time Received Time / Laterality Volume Narrative RADIANT - 08/15/2017 4:37 PM PROFESSIONAL BUILDER This exam was marked as non-reportable because it will not be read by a radiologist or a [facility] non-radiologis t provider. Andrey La MD IMG DIAGNOSTIC IMAGING ORDER DAVIN Performing Organization Address City/State/ZIP Code Phon e Number RADIANT documented in this encounter Visit Diagnoses Diagnosis Tibialis posterior tendinitis, right - P rimary documented in this encounter Administered Medications Inactive Administered Medications - up to 3 most recent administrations Medication Order MAR Action Action Date Dose Rate Site hydrOXYzine (ATARAX) tablet 25 mg Given 08/15/2017 6:36 PM PROFESSIONAL BUILDER 25 mg 25 mg, Oral, ONCE PRN, anxiety, associated with pain or itching, Starting on Fri08/15/17 at 1710, For 1 dose, One time prior to discharge., Post-procedure ibuprofen (ADVIL/MOTRIN) tablet 600 mg Given 08/15/2017 6:36 PM PROFESSIONAL BUILDER 600 mg 600 mg, Oral, ONCE PRN, moderate pain, mild pain, Starting on Fri08/15/17 at 1710, For 1 dose, One time prior to discharge., Post-procedure lactated ringers infusion New Bag 08/15/2017 2:45 PM PROFESSIONAL BUILDER at 25 mL/hr, Intravenous, CONTINUOUS, IF patient NOT on dialysis., Pre-procedure, Starting on Fri08/15/17 at 0945, Until Fri08/15/17 at 1703 New Bag 08/15/2017 2:01 PM PROFESSIONAL BUILDER 25 mL/hr ondansetron (ZOFRAN) injection 4 mg [...] tablet 5 mg Given 08/15/2017 6:09 PM PROFESSIONAL BUILDER 5 mg 5 mg, Oral, ONCE PRN, other, pain control or improvement in physical function.??, Starting on Fri08/15/17 at 1710, For 1 dose, Notify provider to assess for uncontrolled pain or analgesic side effects., Post-procedure documented in this encounter Active and Recently Administered Medications Times are shown in PROFESSIONAL BUILDER. Scheduled Medication Order 08/13/2017 08/14/2017 08/15/2017 clindamycin (CLEOCIN) infusion 900 mg (COMPLETED) 1445 (Given - Provider: Shiv Topete APRN CRNA) 900 mg, Intravenous, ONCE, Fri08/15/17 at 1430, For 1 dose, Indications: Perioperative Pharmacoprophylaxis, Pre-procedure Continuous Medication Order 08/13/2017 08/14/2017 08/15/2017 lactated ringers infusion (CANCELED) 1401 (New Bag - Provider: Layla Cannon RN)1445 (New Bag - Provider: Shiv Topete APRN CRNA)1530 (Anesthesia Volume Adjustment - Provider: Chdii Kerr APRN CRNA)1647 (Anesthesia Volume Adjustment - Provider: Demond Mckeon APRN CRNA) at 25 mL/hr, Intravenous, CONTINUOUS, IF patient [...] mg 0.3-0.5 mg, Intravenous, EVERY 10 MIN MA N, Starting Fri08/15/17 at 1736, Until Fri08/15/17 [...] mg (COMPLETED) 1835 (Given - Provider: Carly Paris RN) 25 mg, Oral, ONCE PRN, anxiety, associat ed with pain or itching, Starting Fri08/15/17 at 1710, For 1 dose, One time prior to discharge., Post-procedure ibuprofen (ADVIL/MOTRIN) tablet 600 mg (COMPLETED) 1835 (Given - Provider: Carly Paris RN) 600 mg, Oral, ONCE PRN, moderate pain, m ild pain, Starting Fri08/15/17 at 1710, For 1 dose, One time prior to discharge., Post-procedure lidocaine 1 % 1 mL (CANCELED) 14 58 (Given - Provider: Shiv Topete, ALARM INVESTIGATOR FUEL AGENT) 1 mL, Other, EVERY 1 HOUR PRN, [...] 30 MIN PRN, nausea, vo miting, Starting 08/15/17 at 1735, For 2 doses, MAX total dose = 8 mg, including OR dosing. This is step 1 of nausea and vomiting management. If not resolved in 15 minutes, then go to step 2 [prochlor perazine (COMPAZINE) if ordered]. With dry hands, peel back foil backing and gently remove tablet; do not push oral disintegrating tablet through foil backing; ad biometrics instructor immediately on tongue and oral disintegrating tablet [...] ausea, vomiting, Administer over 1-2 Minutes, Starting 08/15/17 at 1735, This is Step 2 of [...] sea, vomiting, Administer over 2-5 Minutes, Starting 08/15/17 at 1735, For 2 doses
MAX total [...] Depression Total Score: 1 08/09/2017 7:58 AM PROFESSIONAL BUILDER documented as of this encounter Care Teams Cath Lab Radiological Technologist Relationship Specialty Start Date End Date Mike Canales MD PCP - General Family Practice 08/06/17 Mike Canales MD PCP - Assigned PCP 08/10/17 09/08/18 Mike Canales MD Assigned PCP 08/10/17 08/12/20 documented as of this encounter
--- OUTSIDE RECORDS SUMMARY | 2022-04-15 18:57 | XMS_ITS | Encounter Summary ---
:1985 Author Organization [facility] Address [address] [place] [address] Care Team Providers Name Role Phone Mike Canales MD Primary Care Provider Unavailable Mike Canales MD Unavailable Unavailable Mike Canales MD Unavailable Unavailable Reason for Visit Reason Comments Post-op Problem Encounter Details Date Type Department Care Team Description 08/17/2017 - Emergency [facility] Renu Chung Acute po st-operative 08/18/2017 [facility] Emergency MD [facility] [address] [place], [place] [address] [facility] [phone] [place] [address] [phone] (Wo rk) Social History Tobacco Use Types Packs/Day Years Used Date Smoking Tobacco: Former Smokeless Tobacco: Former Alcohol Use Standard Drinks/Week Comments No 0 (1 standard drink = 0.6 oz pure alcoho l) Sex Assigned at Date Recorded Not on file documented as of this encounter Last Filed Vital Signs Vital Sign Reading Time Taken Comments Blood Pressure 139/95 08/18/2017 12:00 AM MANAGER OF MANUFACTURING Pulse - - Temperature 36.8 ??C (98.3 ??F) 08/17/2017 10:15 PM MANAGER OF MANUFACTURING Respiratory Rate 16 08/18/2017 12:20 AM MANAGER OF MANUFACTURING Oxygen Saturation 97% 08/18/2017 12:00 AM MANAGER OF MANUFACTURING Inhaled Oxygen Concentration - - Weight - - Height - - Body Mass Index - - documented in this encounter Discharge Instructions Discharge InstructionsRenu Chung MD - 08/18/2017 12:06 AM MANAGER OF MANUFACTURING Images from the original note were not included. Managing Pain??After Surgery Once you???re home after surgery, you may have some pain, since even minor surgery causes swelling and breakdown of tissue. When it comes to managing??pain, the tips you may have learned in the hospital also work at home. To get the best pain relief possible, remember the points below. Special note: Be sure to follow any specific??post-surgery instructions from your surgeon or nurse. Use your medicine only as directed ?? If your pain is not relieved or if it gets worse, call your healthcare provider. ?? If pain lessens, try taking your medicine less often or in smaller doses. ?? Non-pharmacological methods of pain relief are also beneficial and may help your pain medicine work better. Ask your healthcare provider for suggestions. Remember that medicines need time to work ?? Most pain relievers taken by mouth need at least 20 to 30 minutes to start to work. They may not reach their maximum effect for close to an hour.? Take pain medicine at regular times as directed. Don???t wait until the pain gets bad to take it. Time your medicine ?? Try to time your medicine so that you take it before starting an activity, such as dressing or sitting at the table for dinner. ?? Taking your medicine at night may help you get a good night???s rest. Eat lots of fruit and vegetables ?? Constipation is a common side effect with some pain medicines. Eating fruit, vegetables, and??other foods high in fiber??can help. ?? Drink plenty of fluids. ?? Talk to your healthcare provider about taking a preventive bowel regimen. Don't??drink alcohol while taking pain medicine ?? Mixing alcohol and pain medicine can cause dizziness and slow your respiratory system. It can even be fatal. ?? Don't drive or use??machinery while taking pain medicines that can cause drowsiness. Note these other precautions ?? Ask your healthcare provider or pharmacist how to get rid of your pain medicines safely when you stop using them. ?? Never share your pain medicines with anyone. ?? Store your medicines in a safe place so they can???t be stolen. If you think your medicine has been stolen or lost, tell your healthcare provider right away. Date Last Reviewed: 11/04/2016 ?? [id number] [employer] [place] [address], [place] [address]. All rights reserved. This information is not intended as a substitute for professional medical care. Always follow your healthcare professional's instructions. GER OF MANUFACTURING documented in this encounter Medications at Time [...] documented as of this encounter ED Notes Melany Mayo RN - 08/17/2017 10:19 PM CST Patient here for post op pain. He had surgery on Friday and is having increased pain which is not well controlled with thi home medications. GER OF MANUFACTURING Renu Chung MD - 08/17/2017 10:12 PM CST History Chief Complaint: Post-op Problem HPI Sterling Iqbal is a 32 year old male who presents to the emergency department today for evaluation of post-op pain. The patient reports that he had surgery on his right leg two days ago. Since thenhe states that has been taking Oxycodone with no relief, which has been inhibiting his sleep. The patient states that this prompted him to call the emergency department who advised him to increase his dosage to 15 mg. Today he notes that the increased dosage is still not alleviating his pain and states that he is warm and able to move his toes but the pain is still extremely uncomfortable. He notes he may have been feverish yesterday but did not take his temperature and denies any ongoing feverish feeling. Allergies: Amoxicillin Medications: Tylenol Ibuprofen Oxycodone Gabapentin Atarax Past Medical History: Past medical history reviewed. No pertinent past medical history. Past Surgical History: Dental surgery Foot/ankle surgery Family History: Mother: hypertension Social History: The patient was accompanied to the ED by parents. Smoking Status: Former Smoker Smokeless Tobacco: Former User. Alcohol Use: Negative Marital Status: Review of Systems Constitutional: Positive for fever (tactile ). Post-op pain All other systems reviewed and are negative. Physical Exam Patient Vitals for the past 24 hrs: BP Temp Temp src Heart Rate Resp SpO2 08/18/17 0020 - - - - 16 - 08/18/17 0000 (!) 139/95 - - - - 97 % 08/17/17 2345 - - - - - 98 % 08/17/17 2330 136/88 - - - - 99 % 08/17/17 2315 - - - - - 98 % 08/17/17 2300 (!) 141/92 - - - - 99 % 08/17/17 2245 - - - - - 99 % 08/17/17 2220 (!) 153/109 - - - - - 08/17/17 2215 - 98.3 ??F (36.8 ??C) Oral 77 18 98 % Physical Exam General: Adult male sitting upright MSK: RLE has a short leg cast in place. Toes of RLE are not edematous. Skin: Warm and dry. No rashes or lesions or ecchymoses on visible skin. Toes RLE WWP. Neuro: Alert and oriented. Responds appropriately to all questions and commands. No focal findings appreciated. Sensation intact to light touch over all toes of the RLE. Psych: Normal mood and affect. Pleasant. Emergency Department Course Interventions: 2234 Dilaudid 4 mg Oral 2315 Ativan 1 mg Oral Emergency Department Course: 2215 Nursing notes and vitals reviewed. 223 I performed an exam of the patient as documented above. [address] Shahid of the orthopedic surgery regarding patient's presentation, findings, andplan of care. 0005 Recheck. Patient requesting to return home. 0021 I personally answered all related questions prior to discharge. He denies any other concerns. Aware of the need for reassessment tomorrow, returning with uncontrolled pain, worsening/new symptoms. Impression & Plan Medical Decision Making: Sterling Iqbal is a 32 year old male two day status post ankle/foot surgery who presents to the emergency department today for evaluation of unbearable pain at home. He has not been able to manage it at home with appropriate dosing of oxycodone. Here he had improvement in pain with oral dilaudid. He has no narcotic dependence history and appears to be appropriate here. He appeared to be neurovascularly intact on exam of the distal foot. He had no fever or other signs of infection were obvious. Idid offer admission given the ongoing pain, however the patient noted that he felt the pain was tolerable enough at this time and that he preferred to go home and follow up tomorrow with his surgeon. This seems reasonable. He can always return if symptoms worsen. All questions were answered prior to discharge. Diagnosis: ICD-10-CM 1. Acute post-operative pain G89.18 Disposition: The patient is discharged to home. Discharge Medications: Discharge Medication List as of 08/18/2017 12:09 AM START taking these medications Details HYDROmorphone (DILAUDID) 2 MG tablet Take 1-2 tablets (2-4 mg) by mouth every 4 hours as needed for severe pain or pain, Disp-12 tablet, R-0, Local Print Scribe Disclosure: Ирина Locke, am serving as a scribe at 1:56 AM on 08/18/2017 to document services personally performed by Dr. Chung based on my observations and the provider's statements to me. [facility] Renu Chung MD 08/23/17 0014 Renu Chung MD 08/23/17 0015 GER OF MANUFACTURING documented in this encounter Plan of Treatment Not on filedocumented as of this encounter Visit Diagnoses Diagnosis Acute post-operative pain Other acute postoperative pain documented in this encounter Administered Medications Inactive Administered Medications - up to 3 most recent administrations Medication Order MAR Action Action Date Dose Rate Site HYDROmorphone (DILAUDID) tablet 4 Given 08/17/2017 10:34 PM MANAGER OF MANUFACTURING 4 mg mg 4 mg, Oral, ONCE, On 08/17/17 at 2231, For 1 dose LORazepam (ATIVAN) tablet 1 mg Given 08/17/2017 11:15 PM MANAGER OF MANUFACTURING 1 mg 1 mg, Oral, ONCE, On 08/17/17 at 2244, For 1 dose documented in this encounter Active and Recently Administered Medications Times are shown in MANAGER OF MANUFACTURING. Scheduled Medication Order 08/16/2017 08/17/2017 08/18/2017 HYDROmorphone (DILAUDID) tablet 4 mg (COMPLETED) 2234 (Given - Provider: Gurinder Gallegos RN) 4 mg, Oral, ONCE, 08/17/17 at 2231, For 1 dose LORazepam (ATIVAN) tablet 1 mg (COMPLETED) 2315 (Given - Provider: Gurinder Gallegos RN) 1 mg, Oral, ONCE, 08/17/17 at 2244, For 1 dose documented in this encounter Additional Health Concerns Assessment Noted Time PHQ-9 Depression Total Score: 1 08/09/2017 7:58 AM MANAGER OF MANUFACTURING documented as of this encounter Care Teams Community Development Coordinator Relationship Specialty Start Date End Date Mike Canales MD PCP - General Family Practice 08/06/17 Mike Canales MD PCP - Assigned PCP 08/10/17 09/08/18 Mike Canales MD Assigned PCP 08/10/17 08/12/20 documented as of this encounter
--- OUTSIDE RECORDS SUMMARY | 2022-04-15 18:57 | XMS_ITS | Encounter Summary ---
:1985 Author Organization [facility] Address [facility] [place] [address] Care Team Providers Name Role Phone Mike Canales MD Primary Care Provider Unavailable Mike Canales MD Unavailable Unavailable Encounter Details Date Type Department Care Team Description 03/06/2020 Travel Social History Tobacco Use Types Packs/Day Years [...] / COVID-19? documented as of this encounter Plan of Treatment Not on filedocumented as of this encounter Visit Diagnoses Not on filedocumented in this encounter Additional Health Concerns Assessment Noted Time PHQ-9 Depression Total Score: 1 08/09/2017 7:58 AM TRACK SUPERINTENDENT documented as of this encounter Care Teams Ore Washer Relationship Specialty Start Date End Date Mike Canales MD PCP - General Family Practice 08/06/17 Mike Canales MD Assigned PCP 08/10/17 08/12/20 documented as of this encounter
--- OUTSIDE RECORDS SUMMARY | 2022-04-15 18:58 | XMS_ITS | Encounter Summary ---
:1985 Author Organization [place] Address [address] [facility] [place] [address] Care Team Providers Name Role Phone No Ref-Primary, Physician Primary Care Provider Reason for Visit (Routine) - Closed Specialty Diagnoses / Procedures Referred By Contact Refer red To Contact Radiology / Radiology. Procedures Rh Xray XR EYE FOREIGN BODY [address] [place] [address] Phone: Fax: Referral ID Status Reason Start Date Expiration Date Visits Requ ested Visits Authorized [id number] Closed 02/21/2017 02/24/2018 1 1 Encounter Details Date Type Department Care Team Description 02/21/2017 Hospital Encounter [facility] Lindy Moore Foreign body, eye [facility] MD [place] [address] [address] [place] [id number] Social History Tobacco Use Types Packs/Day [...] Priority Date/Time Associated Diagnosis Comme nts XR EYE FOREIGN BODY Routine 02/21/2017 5:44 PM Foreign body, e ye Results for this CDT procedure are i n the results section. documented in this encounter Results XR Eye Foreign Body (02/21/2017 5:44 PM CDT) Anatomical Region Laterality Modality Head Digital Radiography Specimen (Source) Anatomical Location Collection Method / Collectio n Time Received Time / Laterality Volume Impressions 02/21/2017 5:47 PM CDT IMPRESSION: Unremarkable examination with no foreign body seen in the region of the orbits. FAM SHERIDAN MD Narrative 02/21/2017 5:47 PM CDT ORBITS ONE VIEW FOR FOREIGN BODY ?? 02/21/2017 5:44 PM HISTORY: Evaluate for foreign body. COMPARISON: None. Procedure Note Fam Sheridan MD - 02/21/2017Fo rmatting of this note might be different from the original. ORBITS ONE VIEW FOR FOREIGN BODY 02/22/20 5:44 PM HISTORY: Evaluate for foreign body. COMPARISON: None. IMPRESSION: Unremarkable examination wit h no foreign body seen in the region of the orbits. FAM SHERIDAN MD Lindy Moore MD IMG DIAGNOSTIC IMAGING ORDER DAVIN documented in this encounter Visit Diagnoses Diagnosis Foreign body, eye Foreign body in unspecified site on exte rnal eye documented in this encounter Care Teams Mainspring Former Relationship Specialty Start Date End Date No Ref-Primary, Physician PCP - General 02/21/17 08/05/17 documented as of this encounter
--- OUTSIDE RECORDS SUMMARY | 2022-04-15 18:58 | XMS_ITS | Encounter Summary ---
:1985 Author Organization [place] Address [address] [facility] [place] [address] Care Team Providers Name Role Phone No Ref-Primary, Physician Primary Care Provider [phone] Reason for Visit JOCELYNN Physical Therapy (Routine) - Closed Specialty Diagnoses / Procedures Referred By Contact Refer red To Contact Physical Therapy Diagnoses >4 (R) ankle and knee / Freddy Riggins MD @ [facility] / Pref1 Andrey [facility] Procedures EXTREMITY INITIAL MD [facility] [place] Therapy - [facility] ORTHOPEDICS [address] [address] [facility] [phone] [place] [address] Referral ID Status Reason Start Date Expiration Date Visits Requ ested Visits Authorized [id number] Closed 03/05/2017 07/10/2018 Encounter Details Date Type Department Care Team Description 03/05/2017 Therapy Visit [facility] Chente Franks, Tibia lis posterior tendinitis, right (Primary Dx); Rehabilitation Services PT Acute pain of right knee [address] [place] [address] [address] [place], [place] [phone] Social History Tobacco Use Types Packs/Day Years Used Date Smoking Tobacco: Former Smokeless Tobacco: Former Alcohol Use Standard Drinks/Week Comments No 0 (1 standard drink = 0.6 oz pure alcoho l) Sex Assigned at Date Recorded Not on file documented as of this encounter Progress Notes TinyJenniferd, PT - 03/05/2017 11:30 AM CDT Subjective: Patient is a 31 year old male presenting with rehab right ankle/foot hpi and rehab right knee hpi. Pt describes right medial ankle pain and intermittent swelling. Worse in the pm after being on his feet more. Started about a year ago after running up a [place]. Purchased OTC shoe inserts last week, but had more pain when he tried using them. . Patient reports pain: Medial and longitudinal arch. Pain is described as aching and stabbing and is intermittent and reported as 7/10. Associated symptoms: Loss of motion/stiffness and edema. Pain is worse in the P.M.. Symptoms are exacerbated by activity, running, standing, walking and descending stairs and relieved by rest and ice. Since onset symptoms are gradually worsening. Special tests: MRI and x-ray. Previous treatment: none. General health as reported by patient is good. Barriers include: None as reported by patient. Red flags: None as reported by patient. Pt also reports right > left anterior knee pain. Has been an episodic problem for 5-8 years, butworse within the last 6 months. . Patient reports pain: Anterior and sub patellar. Pain is described as sharp, stabbing and aching andis intermittent and reported as 7/10. Associated with: right knee feels weak at times and unstable. Pain is worse in the P.M.. Symptoms are exacerbated by running, kneeling, bending/squatting and ascending stairs and relieved by nothing. Since onset symptoms are gradually worsening. Special testing: none. Previous treatment: none. General health as reported by patient is good. Barriers include: None as reported by the patient. Red flags: None as reported by the patient. Objective: Standing Alignment: Knee: Normal Ankle/Foot: Calcaneal valgus L, calcaneal valgus R, pes planus R and pes planus L (Right foot worse than left) Gait: Deviations: Ankle: Pronation incr L and pronation incr R Flexibility/Screens: Lower Extremity: Decreased left lower extremity flexibility:Hamstrings Decreased right lower extremity flexibility: Hamstrings Ankle/Foot Evaluation ROM: AROM is normal (Limited ankle inversion due to deformity). Strength is normal. LIGAMENT TESTING: Anterior Drawer (ATF) Right: neg Posterior Drawer (PTF) Right: neg Varus Stress (Calc Fib) Right: neg Valgus Stress (Deltoid) Right: trace PALPATION: Right ankle tenderness present at: deltoid ligament EDEMA: normal Knee Evaluation: ROM: AROM: normal PROM: normal Strength: Normal Ligament Testing: Normal Special Tests: Left knee positive for the following special tests: Patellar Compression Left knee negative for the following special tests: Patellar Tracking-Abduction Medial; Patellar Tracking-Abduction Lateral and Jolie's Right knee positive for the following tests: Patellar Compression Right knee negative for the following special tests: Patellar Tracking-Abduction Medial; Patellar Tracking-Abduction Lateral and Jolie's Palpation: Left knee tenderness not present at: Patellar Medial and Patellar Lateral Right knee tenderness present at: Patellar Medial and Patellar Lateral Edema: Normal Mobility Testing: Patellofemoral Medial: Left: hypermobile Right: hypermobile Patellofemoral Lateral: Left: hypermobile Right: hypermobile General ROS Assessment/Plan: Patient is a 31 year old male with both sides knee and right side ankle complaints. Patient has the following significant findings with corresponding treatment plan. Diagnosis 1: Right posterior tibialis tendonitis Pain - hot/cold therapy, US, splint/taping/bracing/orthotics, education and home program Decreased ROM/flexibility - manual therapy, therapeutic exercise and home program Decreased strength - therapeutic exercise, therapeutic activities and home program Diagnosis 2: Bilateral PTFC Pain - hot/cold therapy, education and home program Decreased ROM/flexibility - therapeutic exercise and home program Decreased strength - therapeutic exercise, therapeutic activities and home program Therapy Evaluation Codes: 1) History comprised of: Personal factors that impact the plan of care: None. Comorbidity factors that impact the plan of care are: None. Medications impacting care: None. 2) Examination of Body Systems comprised of: Body structures and functions that impact the plan of care: Ankle and Knee. Activity limitations that impact the plan of care are: Running, Sports, Squatting/kneeling, Stairs and Walking. 3) Clinical presentation characteristics are: Stable/Uncomplicated. 4) Decision-Making Low complexity using standardized patient assessment instrument and/or measureable assessment of functional outcome. Cumulative Therapy Evaluation is: Low complexity. 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 Independent in home treatment program. Reach maximal therapeutic benefit. Please refer to the daily flowsheet for treatment today, total treatment time and time spent performing 1:1 timed codes. Mayra Quevedo - 03/05/2017 11:30 AM CDT Subjective: Patient is a 31 year old male presenting with rehab left ankle/foot hpi. Medical allergies: no. Other surgeries include: None reported. Current medications: Anti-inflammatory and pain medication (Aleve, Ibuprofen, Tylenol). 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 Primary job tasks include: Prolonged standing, lifting and repetitive tasks. Objective: System Physical Exam General ROS Assessment/Plan: documented in this encounter Plan of Treatment Not on filedocumented as of this encounter Procedures Procedure Name Priority Date/Time Associated Diagnosis Comme nts [facility] THERAPEUTIC Routine 03/05/2017 2:43 PM Tibialis posterior EXERCISES CDT tendinitis, righ t Acute pain of right knee Z ULTRASOUND THERAPY Routine 03/05/2017 2:43 PM Tibialis pos terior CDT tendinitis, righ t Acute pain of right knee Z HOT OR COLD PACKS Routine 03/05/2017 2:43 PM Tibialis post erior THERAPY CDT tendinitis, righ t Acute pain of right knee documented in this encounter Visit Diagnoses Diagnosis Tibialis posterior tendinitis, right - P rimary Acute pain of right knee documented in this encounter Care Teams Assembly Machine Set Up Mechanic Relationship Specialty Start Date End Date No Ref-Primary, Physician PCP - General 02/21/17 08/05/17 documented as of this encounter
--- OUTSIDE RECORDS SUMMARY | 2022-04-15 18:58 | XMS_ITS | Encounter Summary ---
:1985 Author Organization [place] Address [address] [facility] [place] [address] Care Team Providers Name Role Phone No Ref-Primary, Physician Primary Care Provider Reason for Visit JOCELYNN Physical Therapy (Routine) - Closed Specialty Diagnoses / Procedures Referred By Contact Refer red To Contact Physical Therapy Diagnoses >4 (R) ankle and knee / Freddy Riggins MD @ [facility] / Pref1 Andrey [facility] Procedures EXTREMITY INITIAL MD [facility] Therapy - [facility] ORTHOPEDICS [address] [facility] [address] [address] [place] [address] Referral ID Status Reason Start Date Expiration Date Visits Requ ested Visits Authorized [id number] Closed 03/05/2017 07/10/2018 30 30 Encounter Details Date Type Department Care Team Description 03/19/2017 Therapy Visit [facility] Chente Franks, Tibia lis posterior tendinitis, right; Rehabilitation Services PT Acute pain of right knee [address] [place] [address] [address] [place], [place] [phone] Social History Tobacco Use Types Packs/Day Years Used Date Smoking Tobacco: Former Smokeless Tobacco: Former Alcohol Use Standard Drinks/Week Comments No 0 (1 standard drink = 0.6 oz pure alcoho l) Sex Assigned at Date Recorded Not on file documented as of this encounter Miscellaneous Notes Addendum Note - Chente Franks, PT - 04/04/2017 2:20 PM CDT Addended by: CHENTE FRANKS on: 04/04/2017 02:20 PM Modules accepted: Orders documented in this encounter Plan of Treatment Not on filedocumented as of this encounter Procedures Procedure Name Priority Date/Time Associated Diagnosis Comme nts [facility] THERAPEUTIC Routine 04/04/2017 2:20 PM Tibialis posterior EXERCISES CDT tendinitis, righ t Acute pain of right knee [facility] ULTRASOUND THERAPY Routine 04/04/2017 2:20 PM Tibialis pos terior CDT tendinitis, righ t Acute pain of right knee [facility] HOT OR COLD PACKS Routine 04/04/2017 2:20 PM Tibialis post erior THERAPY CDT tendinitis, righ t Acute pain of right knee documented in this encounter Visit Diagnoses Diagnosis Tibialis posterior tendinitis, right Acute pain of right knee documented in this encounter Care Teams Program Review Director Relationship Specialty Start Date End Date No Ref-Primary, Physician PCP - General 02/21/17 08/05/17 documented as of this encounter
--- OUTSIDE RECORDS SUMMARY | 2022-04-15 18:58 | XMS_ITS | Encounter Summary ---
:1985 Author Organization [place] Address [address] [facility] [place] [address] Care Team Providers Name Role Phone No Ref-Primary, Physician Primary Care Provider Reason for Referral Diagnostic Imaging MRI - Closed Specialty Diagnoses / Procedures Referred By Contact Refer red To Contact Radiology. Diagnoses Pain in joint involving ankle and foot, right Kimberly العلي DPM, Mri R scc Procedures MR Ankle Right w/o Contrast Podiatry/Foot and Ankle [address] [place] [address] [address] [place] [address] Referral ID Status Reason Start Date Expiration Date Visits Requ ested Visits Authorized [id number] Closed 07/25/2017 07/25/2018 1 1 R FINISHER Reason for Visit Diagnostic Imaging MRI - Closed Specialty Diagnoses / Procedures Referred By Contact Refer red To Contact Radiology. Diagnoses Pain in joint involving ankle and foot, right Kimberly العلي DPM, Mri R scc Procedures MR Ankle Right w/o Contrast Podiatry/Foot and Ankle [address] [facility] [address] [place] [address] [address] [place] [address] Referral ID Status Reason Start Date Expiration Date Visits Requ ested Visits Authorized [id number] Closed 07/25/2017 07/25/2018 1 1 Encounter Details Date Type Department Care Team Description 07/28/2017 Hospital Encounter [facility] Kimberly العلي P ain in joint [facility] DPM, involving ankle and [address] [place]/Foot [facility] foot, [facility] [address] [place] [address] [address] [address] [facility] [address] [place] [address] Social History Tobacco Use Types Packs/Day Years Used Date Smoking Tobacco: Former Smokeless Tobacco: Former Alcohol Use Standard Drinks/Week Comments No 0 (1 standard drink = 0.6 oz pure alcoho l) Sex Assigned at Date Recorded Not on file documented as of this encounter Medications at Time of Discharge Medication Sig Dispensed Refills Start Date End Date order for Equipment being 1 Device 0 07/15/2017 DMEIndications: Chronic ordered: ankle brace pain of right ankle, Pes planus of both feet diclofenac (VOLTAREN) 1 Apply 4 grams to knees 100 g 1 07/15/2017 08/15/2017 % GEL topical or 2 grams to hands gelIndications: Chronic four times daily using pain of right ankle enclosed dosing card. documented as of this encounter Plan of Treatment Not on filedocumented as of this encounter Procedures Procedure Name Priority Date/Time Associated Diagnosis Comme nts MR ANKLE RIGHT W/O Routine 07/28/2017 5:28 PM Pain in joint Re sults for this CONTRAST CHAIR FINISHER involving ankle and procedur e are in foot, right the results section. documented in this encounter Results MR Ankle Right w/o Contrast (07/28/2017 5:28 PM CHAIR FINISHER) Anatomical Region Laterality Modality Right Ankle, SUBRAD MR MSK, UMP MR MSK, RAD MR Magnetic Resonance Specimen (Source) Anatomical Location Collection Method / Collectio n Time Received Time / Laterality Volume Impressions 07/29/2017 8:25 AM CHAIR FINISHER IMPRESSION: ?? 1. Minimal reactive edema in the medial malleolus. Bone marrow signal is otherwise within normal limits. This area of edema is immediately underlying the area marked for site of s ymptoms. 2. No significant articular cartilage, t endinous or ligamentous abnormality is seen. Etiology for patien t's symptoms is otherwise not identified. YUDITH SHEARER MD Narrative 07/29/2017 8:25 AM CHAIR FINISHER MRI OF THE RIGHT ANKLE ?? 07/28/2017 5:28 PM HISTORY: ??Lateral and medial ligament i njury vs tendon tear. Pain in joint involving ankle and foot, right. R ight ankle pain and swelling for the last two years. Symptoms started after a jogging/hiking injury. Site of pain is marked with an M RI marker. COMPARISON: ??Right ankle x-rays dated . TECHNIQUE: ??Sagittal and coronal T1 and STIR and transverse proton density and T2 weighted images were obta ined through the right ankle. FINDINGS: Osseous structures and cartilaginous leandra faces: ??No fracture or osseous lesion is demonstrated. There is minimal increased T2 bone marrow signal in the medial aspect of the media l tibial malleolus likely representing mild reactive edema. Site f or symptoms is marked immediately superficial to this location . Bone marrow signal intensity is otherwise within normal limits. The c artilage surfaces are well preserved. Tendons: ??The posterior tibial, flexor digitorum longus, and flexor hallucis longus tendons are normal. The peroneus brevis and longus tendons are unremarkable. No Achilles te ndon pathology is seen. No abnormality is seen in the extensor tend ons. Ligaments: ??The anterior talofibular li gament is normal. The anterior tibiofibular ligament is unremarkable. N o pathology is seen in the posterior talofibular or tibiofibular li gaments. No abnormality of the calcaneofibular ligament is seen. The me dial deltoid ligamentous complex is normal. Additional findings: ??Small tibiotalar joint fluid collection is noted. There is also a small fluid colle ction in the talonavicular joint. No pathology is seen in the tarsa l tunnel. The Sinus Tarsi is unremarkable. The visualized portion of the plantar fascia is normal. No adjacent soft tissue pathology is emani ntified. Procedure Note Yudith Shearer MD - 07/29/2017Form atting of this note might be different from the original. MRI OF THE RIGHT ANKLE 07/28/2017 5:28 PM HISTORY: Lateral and medial ligament inj ury vs tendon tear. Pain in joint involving ankle and foot, right. R ight ankle pain and swelling for the last two years. Symptoms started after a jogging/hiking injury. Site of pain is marked with an M RI marker. COMPARISON: Right ankle x-rays dated 07/15. TECHNIQUE: Sagittal and coronal T1 and S TIR and transverse proton density and T2 weighted images were obta ined through the right ankle. FINDINGS: Osseous structures and cartilaginous leandra faces: No fracture or osseous lesion is demonstrated. There is minimal increased T2 bone marrow signal in the medial aspect of the media l tibial malleolus likely representing mild reactive edema. Site f or symptoms is marked immediately superficial to this location . Bone marrow signal intensity is otherwise within normal limits. The c artilage surfaces are well preserved. Tendons: The posterior tibial, flexor di gitorum longus, and flexor hallucis longus tendons are normal. The peroneus brevis and longus tendons are unremarkable. No Achilles te ndon pathology is seen. No abnormality is seen in the extensor tend ons. Ligaments: The anterior talofibular liga ment is normal. The anterior tibiofibular ligament is unremarkable. N o pathology is seen in the posterior talofibular or tibiofibular li gaments. No abnormality of the calcaneofibular ligament is seen. The me dial deltoid ligamentous complex is normal. Additional findings: Small tibiotalar torin int fluid collection is noted. There is also a small fluid colle ction in the talonavicular joint. No pathology is seen in the tarsa l tunnel. The Sinus Tarsi is unremarkable. The visualized portion of the plantar fascia is normal. No adjacent soft tissue pathology is emani ntified. IMPRESSION: 1. Minimal reactive edema in the medial malleolus. Bone marrow signal is otherwise within normal limits. This area of edema is immediately underlying the area marked for site of s ymptoms. 2. No significant articular cartilage, t endinous or ligamentous abnormality is seen. Etiology for patien t's symptoms is otherwise not identified. YUDITH SHEARER MD Kimberly العلي DPM, Podiatry/Foot and Ankle Surgery IMG MRI ORDERABLES documented in this encounter Visit Diagnoses Diagnosis Pain in joint involving ankle and foot, right documented in this encounter Care Teams Machine Stemmer Relationship Specialty Start Date End Date No Ref-Primary, Physician PCP - General 02/21/17 08/05/17 documented as of this encounter
--- OUTSIDE RECORDS SUMMARY | 2022-04-15 18:58 | XMS_ITS | Encounter Summary ---
:1985 Author Organization [facility] [place] [address] Care Team Providers Name Role Phone No Ref-Primary, Physician Primary Care Provider Reason for Visit Reason Comments RECHECK go over mri Encounter Details Date Type Department Care Team Description 07/29/2017 Office Visit [facility] Kimberly العلي, Right f oot pain (Primary Dx); [facility] [place] DPM, Podiatry/Foot Pes planus, congenital, righ t [id number] [facility] [place] [address] [facility] [id number] [address] [address] [place], [place] [id number] (Wo rk) Social History Tobacco Use Types Packs/Day Years Used Date Smoking Tobacco: Former Smokeless Tobacco: Former Alcohol Use Standard Drinks/Week Comments No 0 (1 standard drink = 0.6 oz pure alcoho l) Sex Assigned at Date Recorded Not on file documented as of this encounter Last Filed Vital Signs Vital Sign Reading Time Taken Comments Blood Pressure 118/72 07/29/2017 3:07 PM EMS DIRECTOR Pulse - - Temperature - - Respiratory Rate - - Oxygen Saturation - - Inhaled Oxygen Concentration - - Weight 80.3 kg (177 lb) 07/29/2017 3:07 PM EMS DIRECTOR Height 179.7 cm (5' 10.75) 07/29/2017 3:07 PM EMS DIRECTOR Body Mass Index 24.86 07/29/2017 3:07 PM EMS DIRECTOR documented in this encounter Patient Instructions Patient InstructionsRajesh Hammond - 07/29/2017 3:00 PM CST Thank you for choosing [facility]! DR. العلي'S CLINIC LOCATIONS: FRIDAY AM - Friday - [place] [address] [address] [address] [address] [place] [address] / FX [id number] / FX [phone] FRIDAY - Friday PM - [place] [address] [address] [place] [address] [place], [place] [id number] / FX [id number] / FX [id number] SCHEDULE SURGERY: [phone] APPOINTMENTS: [phone] BILLING QUESTIONS: [phone] GETTING READY FOR YOUR SURGERY ONE-THREE WEEKS BEFORE 1. See your Family Doctor or Primary Care Doctor for a History and Physical. If you do not, we may need to change the date of your surgery. 2. Please see presurgical medications below to which medications need to be stopped before surgery and when. TEN OR MORE DAYS BEFORE 1. [place] with the hospital. (For [facility]) By . By Internet: [email or web address]. Choose [facility]. If you do not register by phone or online, we will call to help you register. 2. Look around your house, after surgery certain things can be more challenging, getting a knee roller if you think crutches may be difficult, getting a shower chair and cast protector to help with showering and protecting the bandage after surgery, making arrangements if possible to stay on one floorof your house and avoid stairs if you can, stocking your freezer with ready made meals, also gettingalternative transportation options if your right foot is involved as you won't be able to drive. [employer] is a good alternative, taxi's, buses, friends, ect.... SAME DAY SURGERY PATIENTS 1. You will need a family member of friend to drive you home. If you do not have one the surgery will be cancelled/rescheduled. 2. You will need a responsible adult to stay with you that night after the surgery. We will ask this person to listen to some instructions before you leave the hospital. * If your child is having surgery, and you would like a tour of the hospital, please call: [phone]. DAY BEFORE SURGERY 1. DO NOT EAT OR DRINK ANYTHING AFTER MIDNIGHT THE NIGHT BEFORE YOUR SURGERY! 2. DO NOT DRINK ALCOHOL. 3. Do not take over the counter drugs. 4. Some people need to have blood tests at the hospital. If you need blood tests, we will tell you in advance. 5. Take medications as directed by your doctor. You may take these with a small amount of water. 6. Do not chew gum, chew tobacco, or suck on hard candy the day of surgery. 7. Bring your insurance cards, a list of your medicines and co-pays you might need. Leave jewelry and other valuables at home. 8. If you received papers at your doctor's office, bring these with you to the surgery. If you have questions about these instructions, please call: [phone] Ask to speak with a pre-admitting nurse. PRESURGICAL MEDICATIONS: Certain prescription, [id number], and herbal medications interfere with healing after an operation. The main concern relates to medications that increase bleeding at the surgical site. Excess blood under the incision results in poor wound healing, excess pain, increased scarring, and a higher risk of infection. Some medications slow the healing process of bone. Medications can also interfere with the anesthesia drugs that keep you asleep during the operation. It is important to ensure that these medications are out of your system prior to the operation. The list below details a number of medications that areof concern. Pay special attention to how long you should avoid these medications before your operation. Please note that this list is not complete. You should ask your surgeon or pharmacist if you are uncertain about other medications. Any herbal supplement not listed should be discontinued at least one week prior to surgery. Aspirin: Hold for one week prior to surgery and restart the day after surgery. This over the countermedication promotes bleeding. Motrin / Ibuprofen / Aleve / Advil / NSAIDS: Stop one week prior to surgery. These medications affect bleeding and may can delay bone healing. Avoid taking these medications for six weeks after bone surgeries. Other procedures may allow you to restart sooner than 6 weeks after surgery. Coumadin / Plavix: Your primary care provider will manage Coumadin in relation to surgery. Coumadin may result in excessive bleeding and may be adjusted before and after surgery. Enbriel: Stop two weeks prior to surgery and restart two weeks after surgery. This medication can effect soft tissue healing and increases the risk of infection. Remicade: Stop 8-12 weeks before surgery and restart two weeks after surgery. This medication can affect soft tissue healing and increases the risk of infection. Humira: Stop 4 weeks before surgery and restart two weeks after surgery. This medication can affect soft tissue healing and increases the risk of infection. Methotrexate: Stop one dose prior to surgery. This medication will be restarted when the wound appears to be healing well. Please ask your surgeon about restarting this medicaiton when you are being seen in the office for wound checks. Kava: Stop at least one day prior to surgery and may restart one day after surgery. Kava may increase the sedative effect of anesthetics that are given during the operation. Kava can also increase bleeding at the surgical site. Ephedra (ma de la garza): Stop at least one day prior to surgery and may restart one day after surgery. Ephedra may increase the risk of heart attack and stroke. This medication can also increase bleeding atthe surgical site. Marcio's Wort: Stop at least five days before surgery and may restart one day after surgery. Marcio's wort may diminish the effects of several drugs that are given during surgery. Ginseng: Stop at least one week prior to surgery and may restart one day after surgery. Ginseng lowers blood sugar and may increase bleeding at the surgical site. Ginkgo: Stop 36 hours before surgery and may restart one day after surgery. Ginkgo may increase bleeding at the surgical site. Garlic: Stop at least one week prior to surgery and may restart one day after. Garlic may increase bleeding at the surgery site. Valerian: Do a slow steady decrease in your daily dose over a period of 2-3 weeks before surgery to decrease the chance of withdrawal symptoms. Valerian my increase the sedative effect of anesthetics given during the operation. Echinacea: There is no data on stopping echinacea prior to surgery. This medication though can be associated with allergic reactions and suppression of your immune system. Vitamin E, Gower-3, Flax, Fish Oil, Glucosamine and Chondroitin: Stop 2 weeks prior to surgery and may restart one day after. This herbal medications can increase risk of bleeding at surgical site. POTENTIAL COMPLICATIONS OF FOOT & ANKLE SURGERY Undergoing a surgical procedure involves a certain amount of risk. Risk of complications vary depending on the complexity of the surgery and how you take care of the surgical area during the healing process. Complications can range from minor infection to . Some complications are temporary while others will be permanent. Your surgeon weighs the risk of complications vs the potential benefit of undergoing surgery. You need to consider your tolerance for unexpected problems as you decide whether to undergo surgery. Foot and Ankle surgery involves cutting skin, bone, ligaments, blood vessels and joints. these structures heal well but not without consequence. Any break to the skin can lead to infection. A deep infection involves bones or joints which can be devastating. Deep infection can lead to amputation or could spread to other parts of your body. Most infections are minor and easily treated with oral antibiotics. Infections are often times from bacteria already present on your skin. Proper care of the surgical site is an essential component of avoiding infection. Do not get the bandage wet and take proper care of external pins to avoid these problems. Joint stiffness is inherent to any foot or ankle surgery. Joint surgery is a major component of reconstructive foot and ankle procedures. The ligaments and tissues around the joint are cut, then later repaired. Scare tissue limits joint mobility. This can be permanent but generally improves over the course of one year. Surgery involves dissection around nerves. Visible nerves are moved out of the way while very small nerves are cut. Scar tissue develops around nerves and can lead to nerve pain, numbness, or neuromas.Nerve symptoms can be permanent. This can lead to numbness or sometimes hypersensitivity to touch and problems wearing shoes. Bones do not always heal after surgery. Poor healing after a bone cut or joint fusion can lead to anextended period of casting or repeat surgery. Electronic bone stimulators are sometimes used to stimulate poor healing of bone. Nonunion is when joint fusion does not take. This can occur as often as 10% of the time. Smoking doubles your risk of poor bone healing to 20%. Bone grafting is sometimes necessary during the original or subsequent surgery. Bone is sometimes taken from other parts of your body or freeze dried bone from a bone bank from a bone bank or syntheticbone material might be used. A scar is always present after foot and ankle surgery. The scar will be visible and could be sensitive. Some people develop excessive scarring, which cannot be controlled by the surgeon. Scars can be unsightly and can restrict joint mobility. Blood clots can develop in the calf after surgery. Foot and ankle surgery is a predisposing factor for blood clots. The blood clot could break and travel to your lung. This condition can lead to .Early warning signs could include calf swelling and pain, chest pain or shortness of breath. This isan emergency that requires immediate attention by a medical doctor! Surgery will not necessarily create a pain-free foot. Even normal feet hurt. Crooked toes, bunions, neuromas, flat feet and arthritis should all be considered permanent conditions. Ankle pain commonly requires multiple surgeries over a lifetime. Do not assume that having surgery will permanently fix your condition. You may need permanent alteration in shoes and activities to accommodate your foot andankle problem. Careful attention to post-operative recommendations will dramatically reduce your risk of complications. Proper dressing, wound care, elevation and rest will be essential to get the wound healed and minimize scarring. Strict attention to activity restrictions, such as non-weight bearing, or partial weight bearing is essential. Internal fixation devices may not not resist the stress of walking. Some select surgeries allow the patient to walk, however this should be very minimal. Despite these concerns, foot and ankle surgery leads to a high level of patient satisfaction. Your surgeon would not recommend surgery if he/she did not expect your foot to improve. Talk to your surgeon about any of the above issues. FLAT FEET Flatfoot is often a complex disorder, with diverse symptoms and varying degrees of deformity and disability. There are several types of flatfoot, all of which have one characteristic in common: partialor total collapse (loss) of the arch. Other characteristics shared by most types of flatfoot include: ???Toe drift,?? in which the toes and front part of the foot point outward The heel tilts toward the outside and the ankle appears to turn in A tight Achilles tendon, which causes the heel to lift off the ground earlier when walking and may make the problem worse Bunions and hammertoes may develop as a result of a flatfoot. Flexible Flatfoot Flexible flatfoot is one of the most common types of flatfoot. It typically begins in childhood or adolescence and continues into adulthood. It usually occurs in both feet and progresses in severity throughout the adult years. As the deformity worsens, the soft tissues (tendons and ligaments) of the arch may stretch or tear and can become inflamed. The term ???flexible?? means that while the foot is flat when standing (weight- bearing), the arch returns when not standing. SYMPTOMS Pain in the heel, arch, ankle, or along the outside of the foot ???Rolled-in?? ankle (over-pronation) Pain along the hernadez bone (hernadez splint) General aching or fatigue in the foot or leg Low back, hip or knee pain. DIAGNOSIS In diagnosing flatfoot, the foot and ankle surgeon examines the foot and observes how it looks when you stand and sit. X-rays are usually taken to determine the severity of the disorder. If you are diagnosed with flexible flatfoot but you don???t have any symptoms, your surgeon will explain what you might expect in the future. NON-SURGICAL TREATMENT If you experience symptoms with flexible flatfoot, the surgeon may recommend non-surgical treatment options, including: Activity modifications. Cut down on activities that bring you pain and avoid prolonged walking and standing to give your arches a rest. Weight loss. If you are overweight, try to lose weight. Putting too much weight on your arches may aggravate your symptoms. Orthotic devices. Your foot and ankle surgeon can provide you with custom orthotic devices for your shoes to give more support to the arches. Immobilization. In some cases, it may be necessary to use a walking cast or to completely avoid weight-bearing. Medications. Nonsteroidal anti-inflammatory drugs (NSAIDs), such as ibuprofen, help reduce pain and inflammation. Physical therapy. Ultrasound therapy or other physical therapy modalities may be used to provide temporary relief. Shoe modifications. Wearing shoes that support the arches is important for anyone who has flatfoot. SURGICAL TREATMENT In some patients whose pain is not adequately relieved by other treatments, surgery may be considered. A variety of surgical techniques is available to correct flexible flatfoot, and one or a combination of procedures may be required to relieve the symptoms and improve foot function. In selecting the procedure or combination of procedures for your particular case, the foot and anklesurgeon will take into consideration the extent of your deformity based on the x-ray findings, your age, your activity level, and other factors. The length of the recovery period will vary, depending on the procedure or procedures performed. Body Mass Index (BMI) Many things can cause foot and ankle problems. Foot structure, activity level, foot mechanics and injuries are common causes of pain. One very important issue that often goes unmentioned, is body weight. Extra weight can cause increased stress on muscles, ligaments, bones and tendons. Sometimes just a few extra pounds is all it takesto put one over her/his threshold. Without reducing that stress, it can be difficult to alleviate pain. Some people are uncomfortable addressing this issue, but we feel it is important for you to thinkabout it. As Foot & Ankle specialists, our job is addressing the lower extremity problem and possible causes. Regarding extra body weight, we encourage patients to discuss diet and weight management plans with their primary care doctors. It is this team approach that gives you the best opportunityfor pain relief and getting you back on your feet. DIRECTOR documented in this encounter Progress Notes Kimberly العلي DPM, Podiatry/Foot and Ankle Surgery - 07/29/2017 3:00 PM EMS DIRECTOR Podiatry / Foot and Ankle Surgery Progress Note July 29, 2017 Subject: Patient was seen for follow up on right ankle pain. Notes that ankle brace helped with walking and standing but when he takes it off at night, he gets aching to the leg. Objective: Vitals:BP 118/72 Ht 5' 10.75 (1.797 m) Wt 177 lb (80.3 kg) BMI 24.86 kg/m2 General: Patient is alert and orientated. NAD Dermatologic: Skin is intact to both lower extremities without significant lesions, rash or abrasion. No paronychia or evidence of soft tissue infection is noted. ? Vascular: DP & PT pulses are intact & regular bilaterally. No significant edema or varicosities noted. CFT and skin temperature is normal to both lower extremities. ? Neurologic: Lower extremity sensation is intact to light touch. No evidence of weakness or contracture in the lower extremities. No evidence of neuropathy. ? Musculoskeletal: Patient is ambulatory without assistive device or brace. Derease arch height on weight bearing with pronation of the heel right foot. Pain along palpation of the right posterior tibialtendon.no pain on palpation of the posterior tibial tendon. Flat foot is semi reducible. ?? Radiographs: I personally reviewed the xrays. Decrease calcaneal inclination angle. Forefoot is abducted on the rearfoot. ?? MRI: 02/2017 - did not show any pathology. 07/2017: Minimal reactive edema in the medial malleolus. Bone marrow signal is otherwise within normal limits. This area of edema is immediately underlying the area marked for site of symptoms. 2. No significant articular cartilage, tendinous or ligamentous abnormality is seen. Etiology for patient's symptoms is otherwise not identified. ? ASSESSMENT: Chronic pain of right ankle Pes planus of both feet ? PLAN: [facility]. Reviewed MRI. We discussed causes and treatments of flat feet. Overtime, flat feet or falling arches can become painful and possible cause tension to the posterior tibial tendon leading to tendonitis or possible tear/rupture. Conservatively we treat these with arch supports, shoe gear, physical therapy, immobilization and sometimes, surgically such as multiple fusions in the foot to help stabilize the foot. Surgery is quite involved and requires 6-10 weeks nonweight bearing followed by 1 month of protected weight bearing. ?? MRI does not show any tendon or ligament pathology. Discussed surgical reconstruction of the foot including subtalar joint fusion, denton calcaneal osteotomy, and possible opening wedge osteotomy of medial cuneiform. Discussed 6 weeks non weight bearing and 4-6 weeks minimal weight bearing in boot. Discussed sometimes do over night observation. Talked about risks including infection, numbness, continued pain, non union, need for further surgery, blood loss, blood clotting. You will scar. He is going to think about surgery. Did diagnostic injection to subtalar joint today. He will call tomorrow to see if there is any relief. He will call to schedule surgery if he decides to go through with it. Procedure: After verbal consent, the right subtalar joint laterally was marked out. The foot was prepped and draped using sterile technique. A mixture of 1cc of 2% lidocaine plain and 1 cc of bupivicain 0.5% plain was injected into the right subtalar joint laterally . Patient tolerated procedure and anesthesia well. DIAGNOSIS: right flat foot PROCEDURES: Right sublatar joint fusion, midfoot and hidfoot osteotomies, possible gastroc recession. Site: Right Length of case: 3 hours Jacobo: Yes ANESTHESIA: General Popliteal Block: Yes Tourniquet: Thigh PATIENT POSITION: Supine Antibiotics: Give before surgery Overnight Observation EQUIPMENT: Mini c-arm, podiatry and ortho minor set, sagital saw with #138 and #140 blade, arthrex comprehensive set, arthrex 6.5 cannulated screws, 4.0 cannulated screws (in room but not open) power osteotomes, regular osteotomes currettes, tri cortical bone wedge, hinterman retractor, nasal speculum, Kimberly jean baptiste. JJ العلي, Podiatry/Foot and Ankle Surgery DIRECTOR documented in this encounter Nursing Notes Rajesh Hammond - 07/29/2017 3:00 PM CST Chief Complaint Patient presents with ??? RECHECK go over mri Initial BP 118/72 Ht 5' 10.75 (1.797 m) Wt 177 lb (80.3 kg) BMI 24.86 kg/m2 Estimated body mass index is 24.86 kg/(m^2) as calculated from the following: Height as of this encounter: 5' 10.75 (1.797 m). Weight as of this encounter: 177 lb (80.3 kg). Medication Reconciliation: complete Rajesh Hammond MA DIRECTOR documented in this encounter Plan of Treatment Not on filedocumented as of this encounter Visit Diagnoses Diagnosis Right foot pain - Primary Pain in limb Pes planus, congenital, right documented in this encounter Care Teams Refuge Worker Relationship Specialty Start Date End Date No Ref-Primary, Physician PCP - General 02/21/17 08/05/17 documented as of this encounter
--- OUTSIDE RECORDS SUMMARY | 2022-04-15 18:58 | XMS_ITS | Encounter Summary ---
:1985 Author Organization [place] Address [facility] [place] [address] Care Team Providers Name Role Phone No Ref-Primary, Physician Primary Care Provider Reason for Visit Diagnostic Imaging XR - Closed Specialty Diagnoses / Procedures Referred By Contact Refer red To Contact Diagnoses Chronic pain of right ankle Kimberly العلي, DPM, Procedures XR Ankle Right G/E 3 Views Podiatry/Foot and Ankle Surgery [address] [facility] [address] [place] [address] Referral ID Status Reason Start Date Expiration Date Visits Requ ested Visits Authorized [id number] Closed 07/15/2017 07/15/2018 1 1 Encounter Details Date Type Department Care Team Description 07/15/2017 Radiant Appointment [facility] Kimberly oBb, Chronic pain of Clinic [place] DPM, right ankle [address] [facility] Podiatry/Foot [place], [place] and Ankle [address] Surgery [phone] [address] [place], [place] [id number] Social History Tobacco Use Types Packs/Day Years [...] Priority Date/Time Associated Diagnosis Comme nts XR ANKLE RIGHT G/E Routine 07/15/2017 3:56 PM Chronic pain of Results for this 3 VIEWS RECOIL SPRING WINDER right ankle procedure are i n the results section. documented in this encounter Results XR Ankle Right G/E 3 Views (07/15/2017 3:56 PM RECOIL SPRING WINDER) Anatomical Region Laterality Modality Left Ankle Right Computed Radiography Specimen (Source) Anatomical Location Collection Method / Collectio n Time Received Time / Laterality Volume Impressions 07/15/2017 6:25 PM REC[employer] SPRING W[employer]ER IMPRESSION: Normal. RAJESH TIDWELL MD Narrative 07/15/2017 6:25 PM [employer]ING W[employer]ER RIGHT ANKLE THREE VIEWS ?? 07/15/2017 3:56 PM HISTORY: Weight bearing. Chronic pain of right ankle. COMPARISON: None. Procedure Note Rajesh Tidwell MD - 07/15/2017Form atting of this note might be different from the original. RIGHT ANKLE THREE VIEWS 07/15/2017 3:56 PM HISTORY: Weight bearing. Chronic pain of right ankle. COMPARISON: None. IMPRESSION: Normal. RAJESH TIDWELL MD Kimberly العلي DPM, Podiatry/Foot and Ankle Surgery IMG DIAGNOSTIC IMAGING ORDERABLES documented in this encounter Visit Diagnoses Diagnosis Chronic pain of right ankle documented in this encounter Care Teams Bee Tender Relationship Specialty Start Date End Date No Ref-Primary, Physician PCP - General 02/21/17 08/05/17 documented as of this encounter
--- OUTSIDE RECORDS SUMMARY | 2022-04-15 18:58 | XMS_ITS | Encounter Summary ---
:1985 Author Organization [place] Address [address] [place] [address] Care Team Providers Name Role Phone Unavailable Primary Care Provider Unavailable Reason for Visit Reason Onset Date Comments Onboarding 02/01/2015 P1 Other att 1,2,3 Encounter Details Date Type Department Care Team Description 02/01/2015 Telephone [place] [facility] Unknown, Provider Elodia crenshaw (P1 Other Onboarding att 1,2,3) [address] [email or web address] [address] Social History Tobacco Use Types Packs/Day Years Used Date Smoking Tobacco: Never Assessed Sex Assigned at Date Recorded Not on file documented as of this encounter Miscellaneous Notes Telephone Encounter - Savana Patel - 04/12/2015 11:28 AM CDT 04/12/2015 Call Regarding Onboarding P1 Other Attempt 3 Message on voicemail Comments: Outreach Voting Machine Repairer Savana Canas Telephone Encounter - Roland Hood - 02/27/2015 11:18 AM CDT 02/27/2015 Call Regarding - See previous encounter Attempt 2 Message on voicemail MRL Telephone Encounter - Alexa Lloyd - 02/01/2015 11:00 AM CDT 02/01/15 Call Regarding Onboarding P1 Other Attempt 1 Message on voicemail Comments: No D Outreach Voting Machine Repairer cnt documented in this encounter Plan of Treatment Not on filedocumented as of this encounter Visit Diagnoses Not on filedocumented in this encounter
--- OUTSIDE RECORDS SUMMARY | 2022-04-15 18:58 | XMS_ITS | Encounter Summary ---
:1985 Author Organization [place] Address [address] [place] [address] Care Team Providers Name Role Phone No Ref-Primary, Physician Primary Care Provider Reason for Visit JOCELYNN Physical Therapy (Routine) - Closed Specialty Diagnoses / Procedures Referred By Contact Refer red To Contact Physical Therapy Diagnoses >4 (R) ankle and knee / Freddy Riggins MD @ [facility] / Pref1 Andrey [facility] Procedures EXTREMITY INITIAL MD [facility] Therapy - [facility] ORTHOPEDICS [address] [address] [address] [facility] [phone] [place] [address] Referral ID Status Reason Start Date Expiration Date Visits Requ ested Visits Authorized [id number] Closed 03/05/2017 07/10/2018 30 30 Encounter Details Date Type Department Care Team Description 03/12/2017 Therapy Visit [facility] Chente Franks, Tibia lis posterior tendinitis, right; Rehabilitation Services PT Acute pain of right knee [address] [place] [address] [address] [place], [place] [phone] [address] Social History Tobacco Use Types Packs/Day [...] Associated Diagnosis Comme nts ZZC THERAPEUTIC Routine 03/12/2017 1:53 PM Tibialis posterior EXERCISES CDT tendinitis, righ t Acute pain of right knee ZZC ULTRASOUND THERAPY Routine 03/12/2017 1:53 PM Tibialis pos terior CDT tendinitis, righ t Acute pain of right knee ZZ HOT OR COLD PACKS Routine 03/12/2017 1:53 PM Tibialis post erior THERAPY CDT tendinitis, righ t Acute pain of right knee documented in this encounter Visit Diagnoses Diagnosis Tibialis posterior tendinitis, right Acute pain of right knee documented in this encounter Care Teams Bacteriologist Medical Relationship Specialty Start Date End Date No Ref-Primary, Physician PCP - General 02/21/17 08/05/17 documented as of this encounter
--- OUTSIDE RECORDS SUMMARY | 2022-04-15 18:58 | XMS_ITS | Encounter Summary ---
:1985 Author Organization [place] Address [facility] [place] [address] Care Team Providers Name Role Phone No Ref-Primary, Physician Primary Care Provider Encounter Details Date Type Department Care Team Description 07/21/[address] [facility] Kimberly العلي DPM, [place] [facility]iatry/Foot and Ankle [address] [facility] [place] [address] [address] [place], [place] [address] (Wo rk) Social History Tobacco Use Types Packs/Day Years Used Date Smoking Tobacco: Former Smokeless Tobacco: Former Alcohol Use Standard Drinks/Week Comments No 0 (1 standard drink = 0.6 oz pure alcoho l) Sex Assigned at Date Recorded Not on file documented as of this encounter Miscellaneous Notes Telephone Encounter - Hallie Colbert ATC - 07/22/2017 1:36 PM CST Returned call, spoke with Sterling Mckeon's regarding lab results being negative. With regardsto the ankle brace she states Sterling feels it helps but has worse pain when he takes it off, informed her that Dr العلي - recommend repeating MRI and possibly discussing ligament repair to the ankle. They will discuss this and return call if they would like to proceed with the MRI as he may be able to get it done for his follow up visit next week. WELL DRILLING MANAGER Telephone Encounter - Trinidad Bautista - 07/22/2017 1:30 PM CST Please call Sterling oliveros at [phone] WELL DRILLING MANAGER Telephone Encounter - Bernice Viramontes - 07/21/2017 9:22 AM CST Called patient and left a voicemail to call back. Elmer Viramontes MA July 21, 2017 9:22 AM WELL DRILLING MANAGER Telephone Encounter - Kimberly العلي DPM, Podiatry/Foot and Ankle Surgery - 07/21/2017 7:56 AM CST All inflammatory labs are negative. So is the rheumatoid lab. Would like to know how the ankle brace is helping the patient? If it is helping, recommend repeatingMRI and possibly discussing ligament repair to the ankle. Please let patient know. Kimberly العلي DPM WELL DRILLING MANAGER documented in this encounter Plan of Treatment Not on filedocumented as of this encounter Visit Diagnoses Not on filedocumented in this encounter Care Teams Media Production Operator Relationship Specialty Start Date End Date No Ref-Primary, Physician PCP - General 02/21/17 08/05/17 documented as of this encounter
--- OUTSIDE RECORDS SUMMARY | 2022-04-15 18:58 | XMS_ITS | Encounter Summary ---
:1985 Author Organization [place] Address [facility] [place] [address] Care Team Providers Name Role Phone No Ref-Primary, Physician Primary Care Provider Reason for Visit Diagnostic Imaging XR - Closed Specialty Diagnoses / Procedures Referred By Contact Refer red To Contact Diagnoses Chronic pain of right ankle Kimberly العلي, DPM, Procedures XR Foot Right G/E 3 Views Podiatry/Foot and Ankle Surgery [address] [facility] [address] [place] [address] Referral ID Status Reason Start Date Expiration Date Visits Requ ested Visits Authorized [id number] Closed 07/15/2017 07/15/2018 1 1 Encounter Details Date Type Department Care Team Description 07/15/2017 Radiant Appointment [facility] Kimberly Bob, Chronic pain of Clinic [place] DPM, right ankle [address] [facility] Podiatry/Foot [place], [place] and Ankle [address] Surgery [phone] [address] [place], [place] [phone] Social History Tobacco Use Types Packs/Day Years [...] Comme nts XR FOOT RIGHT G/E 3 Routine 07/15/2017 3:56 PM Chronic pain of Results for this VIEWS ASPHALT PAVING SUPERVISOR right ankle procedure are i n the results section. documented in this encounter Results XR Foot Right G/E 3 Views (07/15/2017 3:56 PM ASPHALT PAVING SUPERVISOR) Anatomical Region Laterality Modality Foot, Ankle Right Computed Radiography Specimen (Source) Anatomical Location Collection Method / Collectio n Time Received Time / Laterality Volume Impressions 07/15/2017 6:26 PM ASPHALT PAVING SUPERVISOR IMPRESSION: Mild pes planus deformity. No evidence for fracture or any joint abnormalities. RAJESH TIDWELL MD Narrative 07/15/2017 6:26 PM ASPHALT PAVING SUPERVISOR FOOT RIGHT THREE OR MORE VIEWS ??07/15/2017 3:56 PM HISTORY: Chronic pain of right ankle. COMPARISON: None. Procedure Note Rajesh Tidwell MD - 07/15/2017Form atting of this note might be different from the original. FOOT RIGHT THREE OR MORE VIEWS 07/15/2017 3:56 PM HISTORY: Chronic pain of right ankle. COMPARISON: None. IMPRESSION: Mild pes planus deformity. N o evidence for fracture or any joint abnormalities. RAJESH TIDWELL MD Kimberly العلي DPM, Podiatry/Foot and Ankle Surgery IMG DIAGNOSTIC IMAGING ORDERABLES documented in this encounter Visit Diagnoses Diagnosis Chronic pain of right ankle documented in this encounter Care Teams Gusset Maker Relationship Specialty Start Date End Date No Ref-Primary, Physician PCP - General 02/21/17 08/05/17 documented as of this encounter
--- OUTSIDE RECORDS SUMMARY | 2022-04-15 18:58 | XMS_ITS | Encounter Summary ---
:1985 Author Organization [place] Address [address] [facility] [place] [address] Care Team Providers Name Role Phone No Ref-Primary, Physician Primary Care Provider Reason for Visit JOCELYNN Physical Therapy (Routine) - Closed Specialty Diagnoses / Procedures Referred By Contact Refer red To Contact Physical Therapy Diagnoses >4 (R) ankle and knee / Freddy Riggins MD @ [facility] / Pref1 Andrey [facility] Procedures EXTREMITY INITIAL MD [facility] [employer] [facility] Therapy - [facility] ORTHOPEDICS [address] [place] [address] [facility] [address] [address] [place] [address] Referral ID Status Reason Start Date Expiration Date Visits Requ ested Visits Authorized [id number] Closed 03/05/2017 07/10/2018 30 30 Encounter Details Date Type Department Care Team Description 04/16/2017 Therapy Visit [facility] Chente Franks, Tibia lis posterior tendinitis, right; Rehabilitation Services PT Acute pain of right knee [address] [place] [address] [address] [place], [place] [phone] [address] Social History Tobacco Use Types Packs/Day [...] Priority Date/Time Associated Diagnosis Comme nts ZZC MANUAL THER Routine 04/16/2017 12:41 PM Tibialis posterior TECH,1+REGIONS,EA 15 MIN CDT tendini tis, right Acute pain of right knee ZZC THERAPEUTIC Routine 04/16/2017 12:41 PM Tibialis posterior EXERCISES CDT tendinitis, righ t Acute pain of right knee ZZC ULTRASOUND THERAPY Routine 04/16/2017 12:41 PM Tibialis po sterior CDT tendinitis, righ t Acute pain of right knee ZZC HOT OR COLD PACKS Routine 04/16/2017 12:41 PM Tibialis pos terior THERAPY CDT tendinitis, righ t Acute pain of right knee documented in this encounter Visit Diagnoses Diagnosis Tibialis posterior tendinitis, right Acute pain of right knee documented in this encounter Care Teams Emg Technician Relationship Specialty Start Date End Date No Ref-Primary, Physician PCP - General 02/21/17 08/05/17 documented as of this encounter
--- OUTSIDE RECORDS SUMMARY | 2022-04-15 18:58 | XMS_ITS | Encounter Summary ---
:1985 Author Organization [place] Address [facility] [place] [address] Care Team Providers Name Role Phone Lilian Canales MD Primary Care Provider Unavailable Lilian Canales MD Unavailable Unavailable Lilian Canales MD Unavailable Unavailable Reason for Visit Reason Comments Pre-Op Exam Encounter Details Date Type Department Care Team Description 08/08/2017 Office Visit [facility] Lilian Canales Preop gen eral physical exam (Primary Dx); Clinic Madhavi Carrillo MD Tibialis posterior tendiniti s, right; [address] [facility] Chronic [place] [address] Social History Tobacco Use Types Packs/Day Years Used Date Smoking Tobacco: Former Smokeless Tobacco: Former Alcohol Use Standard Drinks/Week Comments No 0 (1 standard drink = 0.6 oz pure alcoho l) Sex Assigned at Date Recorded Not on file documented as of this encounter Last Filed Vital Signs Vital Sign Reading Time Taken Comments Blood Pressure 120/70 08/08/2017 7:11 AM [employer]LING Pulse 74 08/08/2017 7:11 AM [employer] Temperature 36.4 ??C (97.6 ??F) 08/08/2017 7:11 AM [employer] Respiratory Rate - - Oxygen Saturation 96% 08/08/2017 7:11 AM [employer] STE[employer] Inhaled Oxygen Concentration - - Weight 78.5 kg (173 lb) 08/08/2017 7:11 AM [employer] Height 179.7 cm (5' 10.75) 08/08/2017 7:11 AM [employer] Body Mass Index 24.3 08/08/2017 7:11 AM [employer] documented in this encounter Patient Instructions Patient Sandeep Jayhel, ASSISTANT DEPARTMENT MANAGER - 08/08/2017 7:06 AM CST Before Your Surgery ??? Call your surgeon if there is any change in your health. This includes signs of a cold or flu (such as a sore throat, runny nose, cough, rash or fever). ??? Do not smoke, drink alcohol or take over the counter medicine (unless your surgeon or primary care doctor tells you to) for the 24 hours before and after surgery. ??? If you take prescribed drugs: Follow your doctor???s orders about which medicines to take and which to stop until after surgery. ??? Eating and drinking prior to surgery: follow the instructions from your surgeon ??? Take a shower or bath the night before surgery. Use the soap your surgeon gave you to gently clean your skin. If you do not have soap from your surgeon, use your regular soap. Do not shave or scrubthe surgery site. Wear clean pajamas and have clean sheets on your bed. [employer] documented in this encounter Progress Notes Lilian Canales MD - 08/08/2017 7:06 AM CST [place] [phone] Dept: [phone] PRE-OP EVALUATION: Today's date: 08/08/2017 Sterling Iqbal (: 1985) presents for pre-operative evaluation assessment as requested by Dr. La . He requires evaluation and anesthesia risk assessment prior to undergoing surgery/procedure for treatment of RECESSION GASTROCNEMIUS OSTEOTOMY RIGHT FOOT Date of Surgery/ Procedure: 08/15/17 Time of Surgery/ Procedure: 10:25am Hospital/Surgical Facility: [facility] Primary Physician: Lilian Canales Type of Anesthesia Anticipated: to be [...] History: Procedure Laterality Date ??? DENTAL SURGERY [place] teeth Current Outpatient Prescriptions Medication Sig Dispense [...] and decisions personally performed and made by Lilian Canales MD. It was created on his behalf by Rachel Maravilla, a trained medical fee clerk. The creation of this document is based on the provider's statements to the medical fee clerk. Rachel Maravilla 7:17 AM August 08, 2017 [...] NA, POTASSIUM, CR, A1C in the last [id number] hours. IMPRESSION: Reason for surgery/procedure: Right tibialis posterior tendinitis Diagnosis/reason for consult: preoperative evaluation for assessment of cardiovascular and respiratory disease as well as overall risk assessment and perioperative medical management. The proposed surgical procedure is considered INTERMEDIATE risk. REVISED CARDIAC RISK INDEX The patient has the following serious cardiovascular risks for perioperative complications such as (KS, PE, VFib and 3?? AV Block): No [...] in this document, created by the medical fee clerk for me, accurately reflects the services I personally performed and the decisions made by me. I have reviewed and approved this document for accuracy prior to leaving the patient care area. August 08, 2017 7:27 AM Signed Electronically by: Lilian Canales MD Copy of this evaluation report is provided to requesting physician. [place] Preop Guidelines [employer] documented in this encounter Nursing Notes Margi Oswald, LIBORIO - 08/08/2017 7:20 AM CST Chief Complaint Patient presents with ??? Pre-Op Exam Initial BP 120/70 (BP Location: Right arm, Patient Position: Chair, Cuff Size: Adult Regular) Pulse 74 Temp 97.6 ??F (36.4 ??C) (Oral) Ht 5' 10.75 (1.797 m) Wt 173 lb (78.5 kg) SpO2 96% BMI 24.3 kg/m2 Estimated body mass index is 24.3 kg/(m^2) as calculated from the following: Height as of this encounter: 5' 10.75 (1.797 m). Weight as of this encounter: 173 lb (78.5 kg). Medication Reconciliation: complete Health Maintenance addressed: NONE n/a Margi Oswald CMA [employer] documented in this encounter Miscellaneous Notes Addendum Note - Lilian Canales MD - 08/08/2017 9:49 AM [employer] Addended by: LILIAN CANALES on: 08/08/2017 09:49 AM Modules accepted: Orders [employer] Addendum Note - Lilian Canales MD - 08/08/2017 9:49 AM [employer] Addended by: LILIAN CANALES on: 08/08/2017 09:49 AM Modules accepted: Orders [employer] documented in this encounter Plan of Treatment Not on filedocumented as of this encounter Procedures Procedure Name Priority Date/Time Associated Diagnosis Comme nts MRSA MSSA PCR, Routine 08/08/2017 9:54 AM Preop general Result s for this NASAL SWAB [employer] physical exam procedure are in the results section. BASIC METABOLIC Routine 08/08/2017 7:38 AM Preop general Resul ts for this PANEL [employer] physical exam procedure are in the results section. CBC WITH PLATELETS Routine 08/08/2017 7:38 AM Preop general Re sults for this [employer] physical exam procedure are in the results section. documented in this encounter Results Methicillin Resist/Sens S. aureus PCR (08/08/2017 9:54 AM LAB[employer]) [facility] Method Time Signature Specimen Nares 08/08/2017 [facility] Description 9:49 AM [employer] [facility] Methicillin Negative NEG^Negat 08/08/2017 [facility] Resist/Sens S. shakira 5:48 PM [employer] [facility] aureus PCR [facility] Comment: MRSA Negative: SA Positive MRSA target DNA not detected, presumed n egative for MRSA colonization or the number of bacteria present may be below the limit of detection. Staphylococcus aureus target DNA detecte d, presumed positive for SA colonization. A positive test does not necessarily ind icate the presence of viable organisms. ??It is, however, presumptive for the presence of SA. ??This result does not preclude MRSA nasal colonizatio n. FDA approved assay performed using [email or web address] id GeneXpert(R) real-time PCR. Specimen (Source) Anatomical Collection Method Collection Time Re ceived Time Location / / Volume Laterality Nasal structure 08/08/2017 9:54 8 9:55 (body structure) AM [employer] HANDL[employer] AM [employer] Lilian Canales MD LAB - MICRO GENERAL ORDERABL ES Performing Organization Address City/State/ZIP Code Phon e Number [facility] [address] [place] [address] [facility] [address] [place] [address] (ABNORMAL) Basic metabolic panel (08/08/2017 7:38 AM [employer]) athologist Signature Sodium 140 133 - 144 08/09/2017 [facility] mmol/L 11:30 AM [facility] Potassium 3.7 3.4 - 5.3 08/09/2017 [facility] mmol/L 11:30 AM [facility] Chloride 105 94 - 109 08/09/2017 [facility] mmol/L 11:30 AM [facility] Carbon Dioxide 27 20 - 32 08/09/2017 [facility] mmol/L 11:30 AM [facility] Anion Gap 8 3 - 14 08/09/2017 [facility] mmol/L 11:30 AM [facility] Glucose 55 (L) 70 - 99 08/09/2017 [facility] mg/dL 11:30 AM [facility] Comment: Non Fasting Urea Nitrogen 15 7 - 30 mg/dL 08/09/2017 11:[address] [facility] Creatinine 0.89 0.66 - 1.25 mg/dL 08/09/2017 11:30 AM [facility] GFR Estimate >90 >60 mL/min/1.7m2 08/09/2017 11:[address] [facility] Comment: Non GFR Calc GFR Estimate If >90 >60 mL/min/1.7m2 08/09/2017 11:30 AM [facility] Comment: GFR Calc Calcium 9.2 8.5 - 10.1 mg/dL 08/09/2017 11:30 AM [facility] Specimen Anatomical Collection Method Collection Time Receive d Time (Source) Location / / Volume Laterality Blood specimen 08/08/2017 7:38 AM 018 7:39 (specimen) [employer] AM [employer] Lilian Canales MD LAB - BLOOD ORDERABLES Performing Organization Address City/State/ZIP Code Phon e Number [facility] [address] [place] [address] CBC with platelets (08/08/2017 7:38 AM [employer]) P athologist Signature WBC 5.3 4.0 - 11.0 08/08/2017 MI[facility] 10e9/L 8:09 AM [facility] RBC Count 4.78 4.4 - 5.9 08/08/2017 MI[facility] 10e12/L 8:09 AM [facility] Hemoglobin 15.0 13.3 - 08/08/2017 MI[facility] 17.7 g/dL 8:09 AM [facility] Hematocrit 42.6 40.0 - 08/08/2017 [facility] 53.0 % 8:09 AM [facility] MCV 89 78 - 100 08/08/2017 MI[place] fl 8:09 AM [facility] MCH 31.4 26.5 - 08/08/2017 [place] 33.0 pg 8:09 AM [facility] MCHC 35.2 31.5 - 08/08/2017 [place] 36.5 g/dL 8:09 AM [facility] RDW 12.3 10.0 - 08/08/2017 [place] 15.0 % 8:09 AM [facility] Platelet Count 246 150 - 450 08/08/2017 [facility] 10e9/L 8:09 AM [facility] Specimen Anatomical Collection Method Collection Time Receive d Time (Source) Location / / Volume Laterality Blood specimen 08/08/2017 7:38 AM 018 7:39 (specimen) [employer] STE[employer] HANDLING AM [employer] Lilian Canales MD LAB - BLOOD ORDERABLES Performing Organization Address City/State/ZIP Code Phon e Number [facility] [address] [place] [address] documented in this encounter Visit Diagnoses Diagnosis Preop general physical exam - Primary Other specified pre-operative examinatio n Tibialis posterior tendinitis, right Chronic pain of right ankle documented in this encounter Additional Health Concerns Assessment Noted Time PHQ-9 Depression Total Score: 1 08/09/2017 7:58 AM [employer] documented as of this encounter Care Teams Stablehand Relationship Specialty Start Date End Date Lilian Canales MD PCP - General Family Practice 08/06/17 Lilian Canales MD PCP - Assigned PCP 08/10/17 09/08/18 Lilian Canales MD Assigned PCP 08/10/17 08/12/20 documented as of this encounter
--- OUTSIDE RECORDS SUMMARY | 2022-04-15 18:58 | XMS_ITS | Encounter Summary ---
:1985 Author Organization [place] Address [address] [facility] [place] [address] Care Team Providers Name Role Phone No Ref-Primary, Physician Primary Care Provider [phone] Reason for Referral Consultation - Closed Specialty Diagnoses / Procedures Referred By Contact Refer red To Contact Podiatry Diagnoses Tibialis posterior tendinitis, right Acquired pes planus of both feet Freddy Riggins, Berta [facility] [address] [address] [facility] [address] [place] [phone] Fax: Referral ID Status Reason Start Date Expiration Date Visits Requ ested Visits Authorized [id number] Closed 07/10/2017 07/10/2018 1 1 LE HOME INSTALLER Reason for Visit Reason Onset Date Comments Foot Pain 07/10/2017 Encounter Details Date Type Department Care Team Description 07/10/2017 [facility] Freddy Riggins, [place] [address] [facility] [address] [place] [address] [place] [address] [phone] (Wo rk) Social History Tobacco Use Types Packs/Day Years Used Date Smoking Tobacco: Former Smokeless Tobacco: Former Alcohol Use Standard Drinks/Week Comments No 0 (1 standard drink = 0.6 oz pure alcoho l) Sex Assigned at Date Recorded Not on file documented as of this encounter Miscellaneous Notes Telephone Encounter - Angela Roth RN - 07/10/2017 3:12 PM CST Phone call to patient and informed of referral to podiatry. Scheduling number provided. He verbalized understanding. Leo Roth RN LE HOME INSTALLER Telephone Encounter - Freddy Riggins MD - 07/10/2017 2:34 PM MOBILE HOME INSTALLER Agree with podiatry referral, signed. LE HOME INSTALLER Telephone Encounter - Angela Roth RN - 07/10/2017 2:10 PM CST Patient calls stating he saw Dr. Riggins in February 2017. He has tried several different arch supports/shoes and completed physical therapy the end of April. He states his ankle is not getting betterand it has become more painful over the last couple of weeks off and on. Per office visit notes informed that Dr. Riggins would most likely recommend he see podiatry. Will discuss a referral and get back with him. He states he does prefer a [place] location as it is moreconvenient for work. Please advise if you would like patient to see podiatry or follow up in the office for re-evaluation. Please see referral pending. Leo Roth RN LE HOME INSTALLER documented in this encounter Plan of Treatment Pending Results Name Type Priority Associated Diagnoses Date/Ti me ORTHO DEMOGRAPHER REFERRAL Referral Routine Tibialis posteri or tendinitis, 07/10/2017 right Acquired pes planus of both feet documented as of this encounter Visit Diagnoses Diagnosis Tibialis posterior tendinitis, right - P rimary Acquired pes planus of both feet Flat foot documented in this encounter Care Teams Proposal Consultant Relationship Specialty Start Date End Date No Ref-Primary, Physician PCP - General 02/21/17 08/05/17 documented as of this encounter
--- OUTSIDE RECORDS SUMMARY | 2022-04-15 18:58 | XMS_ITS | Encounter Summary ---
:1985 Author Organization [place] Address [address] [facility] [place] [address] Care Team Providers Name Role Phone No Ref-Primary, Physician Primary Care Provider Reason for Referral JOCELYNN Physical Therapy - Closed Specialty Diagnoses / Procedures Referred By Contact Refer red To Contact Diagnoses Posterior tibial tendinitis of right leg Patellofemoral stress syndrome Freddy Riggins, [facility] [address] [address] [place] [address] [place] [address] Phone: [phone] Referral ID Status Reason Start Date Expiration Date Visits Requ ested Visits Authorized [id number] Closed 02/24/2017 02/24/2018 1 1 Reason for Visit Reason Onset Date Comments Ankle Pain 02/24/2017 swelling Encounter Details Date Type Department Care Team Description 02/24/2017 Telephone Jayy Raya & Freddy Riggins Ankle P ain (swelling) Orthopedic Care-Shaye Amaya MD [facility] [address] , [address] [address] [place] [address] NIDHI Huertas [phone] (W ork) [address] [phone] Social History Tobacco Use Types Packs/Day Years Used Date Smoking Tobacco: Former Smokeless Tobacco: Former Alcohol Use Standard Drinks/Week Comments No 0 (1 standard drink = 0.6 oz pure alcoho l) Sex Assigned at Date Recorded Not on file documented as of this encounter Miscellaneous Notes Telephone Encounter - Maru Mcclain - 02/24/2017 5:50 PM CDT Attempted to call patient. Left EP number to call back if he has further questions. Telephone Encounter - Freddy Riggins MD - 02/24/2017 12:18 PM CDT LM to pt as per request: PHYSICAL THERAPY order placed; suspect inserts are requiring titrated use to build tolerance. Suggested slowly build up use at about an hour daily or every few days. Ok for podiatry c/s as desired. Telephone Encounter - Maru Mcclain - 02/24/2017 11:[address] for physical therapy. Dr. Riggins please advise. Telephone Encounter - Angela Roth RN - 02/24/2017 8:51 AM CDT Patient calls stating he saw Dr. Riggins on 02/22/17 for an ankle and knee problem. He was instructed to get some insoles from [employer] for his flat feet. He purchased the lowest insert he could find and was fitted on Friday at [employer]. He wore them Friday evening and all day yesterday. However, yesterday he states he could hardly walk by the end of the day. His right ankle was swollenand painful. He states it has made his symptoms worse. He was not any more active than usual. He would like recommendations of what to do with the inserts and would also like to set up physical therapy. No order placed for physical therapy. Please place orders and advise. Leo Roth RN documented in this encounter Plan of Treatment Scheduled Referrals Name Type Priority Associated Diagnoses Order S checeline JOCELYNN PT, HAND, AND Referral Routine Posterior tibial Ordere d: 02/24/2017 CHIROPRACTIC REFERRAL tendinitis of right leg Patellofemoral stress syndrome documented as of this encounter Visit Diagnoses Diagnosis Posterior tibial tendinitis of right leg - Primary Tibialis tendinitis Patellofemoral stress syndrome Pain in joint, lower leg documented in this encounter Care Teams Safety Officer Relationship Specialty Start Date End Date No Ref-Primary, Physician PCP - General 02/21/17 08/05/17 documented as of this encounter
--- OUTSIDE RECORDS SUMMARY | 2022-04-15 18:58 | XMS_ITS | Encounter Summary ---
:1985 Author Organization [place] Address [facility] [place] [address] Care Team Providers Name Role Phone No Ref-Primary, Physician Primary Care Provider Reason for Referral Diagnostic Imaging XR - Closed Specialty Diagnoses / Procedures Referred By Contact Refer red To Contact Diagnoses Chronic pain of right ankle Kimberly العلي DPM, Procedures XR Foot Right G/E 3 Views Podiatry/Foot and Ankle Surgery [address] [facility] [address] [place] [address] Referral ID Status Reason Start Date Expiration Date Visits Requ ested Visits Authorized [id number] Closed 07/15/2017 07/15/2018 1 1 iagnostic Imaging XR - Closed Specialty Diagnoses / Procedures Referred By Contact Refer red To Contact Diagnoses Chronic pain of right ankle Kimberly العلي DPM, Procedures XR Ankle Right G/E 3 Views Podiatry/Foot and Ankle Surgery [address] [address] [place] [address] Referral ID Status Reason Start Date Expiration Date Visits Requ ested Visits Authorized [id number] Closed 07/15/2017 07/15/2018 1 1 MATCHER Reason for Visit Reason Comments Foot Problems right foot and ankle, still swelling and painful on the medial side of foot Encounter Details Date Type Department Care Team Description 07/15/2017 Office Visit [facility] Kimberly العلي, Chronic pain of right ankle (Primary Dx); Clinic [place] DPM, Podiatry/Foot Pes planus of both feet [address] [facility] [place] [address] [place] [phone] [address] [place] [address] (Wo rk) Social History Tobacco Use Types Packs/Day Years Used Date Smoking Tobacco: Former Smokeless Tobacco: Former Alcohol Use Standard Drinks/Week Comments No 0 (1 standard drink = 0.6 oz pure alcoho l) Sex Assigned at Date Recorded Not on file documented as of this encounter Last Filed Vital Signs Vital Sign Reading Time Taken Comments Blood Pressure 112/60 07/15/2017 3:36 PM FUR MATCHER Pulse - - Temperature - - Respiratory Rate - - Oxygen Saturation - - Inhaled Oxygen Concentration - - Weight 80.5 kg (177 lb 6.4 oz) 07/15/2017 3:36 PM FUR MATCHER Height 179.7 cm (5' 10.75) 07/15/2017 3:36 PM FUR MATCHER Body Mass Index 24.92 07/15/2017 3:36 PM FUR MATCHER documented in this encounter Patient Instructions Patient InstructionsRajesh Hammond - 07/15/2017 3:15 PM CST Thank you for choosing [facility]! DR. العلي'S CLINIC LOCATIONS: FRIDAY AM - Friday - [facility] [address] [facility] [address] [place] [address] [place], [place] [id number] / FX [id number] / FX [id number] FRIDAY - Friday PM - [place] [address] [address] [place] [address] [place], [place] [id number] / FX [id number] / FX [id number] SCHEDULE SURGERY: [phone] APPOINTMENTS: [phone] BILLING QUESTIONS: [phone] Follow up in 2-3 weeks Body Mass Index (BMI) Many things can [...] and getting you back on your feet. MATCHER documented in this encounter Progress Notes Kimberly العلي DPM, Podiatry/Foot and Ankle Surgery - 07/15/2017 3:15 PM FUR MATCHER PATIENT HISTORY: Dr. Riggins requested I see this patient for their foot issue. Sterling Iqbal is a32 year old male who presents to clinic for chronic pain to the right ankle. Has been going on for roughly 2 years. Has had xrays, MRI, PT without relief. Pain is 9/10, especially by the end of the day. Notes his ankle gets very stiff in the morning. Has tried inserts but they seem to hurt more. Notesit is affecting his daily living. Is wondering what is causing the pain and what can be done for it.Does also have knee and hip pain to right side. Notes it is an aching stabbing pain. Also notes his foot will feel hot and cold at times. Pain goes from inside of foot to knee. Review of Systems: Patient denies fever, chills, rash, wound, stiffness, limping, numbness, weakness, heart burn, blood in stool, chest pain with activity, calf pain when walking, shortness of breath with activity, chronic cough, easy bleeding/bruising, swelling of ankles, excessive thirst, fatigue, de pression, anxiety. Patient admits to limp. PAST MEDICAL HISTORY: History reviewed. No pertinent past medical history. PAST SURGICAL HISTORY: History reviewed. No pertinent surgical history. MEDICATIONS: No current outpatient prescriptions on file. ALLERGIES: Allergies Allergen Reactions ??? Amoxicillin Hives SOCIAL HISTORY: Social History Social History ??? Marital status: Spouse name: N/A ??? Number of children: N/A ??? Years of education: N/A Occupational History ??? Not on file. Social History Main Topics ??? Smoking status: Former Smoker ??? Smokeless tobacco: Former User ??? Alcohol use No ??? Drug use: No ??? Sexual activity: Yes Partners: Female Other Topics Concern ??? Not on file Social History Narrative FAMILY HISTORY: Family History Problem Relation Age of Onset ??? Hypertension Mother EXAM:Vitals: BP 112/60 Ht 5' 10.75 (1.797 m) Wt 177 lb 6.4 oz (80.5 kg) BMI 24.92 kg/m2 General appearance: Patient is alert and fully cooperative with history & exam. No sign of distress is noted during the visit. Psychiatric: Affect is pleasant & appropriate. Patient appears motivated to improve health. Respiratory: Breathing is regular & unlabored while sitting. HEENT: Hearing is intact to spoken word. Speech is clear. No gross evidence of visual impairment that would impact ambulation. Dermatologic: Skin is intact to both lower extremities without significant lesions, rash or abrasion. No paronychia or evidence of soft tissue infection is noted. Vascular: DP & PT pulses are intact & regular bilaterally. No significant edema or varicosities noted. CFT and skin temperature is normal to both lower extremities. Neurologic: Lower extremity sensation is intact to light touch. No evidence of weakness or contracture in the lower extremities. No evidence of neuropathy. Musculoskeletal: Patient is ambulatory without assistive device or brace. Derease arch height on weight bearing with pronation of the heel right foot. Pain along palpation of the right posterior tibialtendon.no pain on palpation of the posterior tibial tendon. Radiographs: I personally reviewed the xrays. Decrease calcaneal inclination angle. Forefoot is abducted on the rearfoot. Possible MRI: 02/2017 - did not show any pathology. ASSESSMENT: Chronic pain of right ankle Pes planus of both feet PLAN: Reviewed [facility] in [facility]. Reviewed xrays. We discussed causes and treatments of flat feet. Overtime, flat feet or falling arches can become painful and possible cause tension to the posterior tibial tendon leading to tendonitis or possible tear/rupture. Conservatively we treat these witharch supports, shoe gear, physical therapy, immobilization and sometimes, surgically such as multiple fusions in the foot to help stabilize the foot. Surgery is quite involved and requires 6-10 weeks non weight bearing followed by 1 month of protected weight bearing. Talked about MRI and xray results. Talked about flat foot surgery but my concern is that this may not be the whole cause of patients pain. Discussed the nerves for our feet start in our lower back, this could be contributing. Also talked about systemic arthritidis since all advance imagining is comingback negative. At this time, recommend ankle brace to see if this provides some relief.also recommended topical anti inflammatory gel to foot. If it does, possible repeat MRI and flat foot repair with deltoid ligament repair. If he gets no relief, may recommend EMG to assess the nerves. Will also order rh and [id number] inflammatory markers to assess for possible systemic arthritis as a possible cause. Will have him follow up in 2-3 weeks for reassessment. Kimberly العلي DPM, Podiatry/Foot and Ankle Surgery Rh MATCHER documented in this encounter Nursing Notes Rajesh Hammond - 07/15/2017 3:15 PM CST Chief Complaint Patient presents with ??? Foot Problems right foot and ankle, still swelling and painful on the medial side of foot Initial BP 112/60 Ht 5' 10.75 (1.797 m) Wt 177 lb 6.4 oz (80.5 kg) BMI 24.92 kg/m2 Estimated body mass index is 24.92 kg/(m^2) as calculated from the following: Height as of this encounter: 5' 10.75 (1.797 m). Weight as of this encounter: 177 lb 6.4 oz (80.5 kg). Medication Reconciliation: complete Rajesh Hammond MA MATCHER documented in this encounter Plan of Treatment Not on filedocumented as of this encounter Procedures Procedure Name Priority Date/Time Associated Comments Diagnosis HLA-B27 TYPING Routine 07/15/2017 4:27 PM Chronic pain of Resu lts for this FUR MATCHER right ankle procedure are i n the results section. RHEUMATOID FACTOR Routine 07/15/2017 4:27 PM Chronic pain of R esults for this FUR MATCHER right ankle procedure are i n the results section. ERYTHROCYTE Routine 07/15/2017 4:27 PM Chronic pain of Result s for this SEDIMENTATION RATE FUR MATCHER right ankle procedure are in AUTO the results section. CRP INFLAMMATION Routine 07/15/2017 4:27 PM Chronic pain of Re sults for this FUR MATCHER right ankle procedure are i n the results section. documented in this encounter Results CRP, inflammation (07/15/2017 4:27 PM FUR MATCHER) Analysis Performed At Patho logist Time Signature CRP Inflammation 3.8 0.0 - 8.0 07/16/2017 [place] O F mg/L 3:40 PM FUR MATCHER [facility] Specimen Anatomical Collection Method Collection Time Receive d Time (Source) Location / / Volume Laterality Blood specimen 07/15/2017 4:27 PM 018 4:28 (specimen) FUR MATCHER PM FUR MATCHER Kimberly العلي DPM, Podiatry/Foot and Ankle Surgery LAB - BLOOD ORDERABLES Performing Organization Address City/[facility]/ZIP Code Phon e Number [facility] [address] [place], [place] [id number] [place] [address] ESR: Erythrocyte sedimentation rate (07/15/2017 4:27 PM FUR MATCHER) P athologist Signature Sed Rate 5 0 - 15 mm/h 07/15/2017 [place] 5:02 PM [facility] Specimen Anatomical Collection Method Collection Time Receive d Time (Source) Location / / Volume Laterality Blood specimen 07/15/2017 4:27 PM 018 4:28 (specimen) FUR MATCHER PM FUR MATCHER Kimberly العلي DPM, Podiatry/Foot and Ankle Surgery LAB - BLOOD ORDERABLES Performing Organization Address City/[facility] Phon e Number [facility] [address] [place] [address] HLA-B27 Typing (07/15/2017 4:27 PM FUR MATCHER) Patholo gist Method Time Signature HLA B27 Specimen 07/17/2017 [facility] received - 8:21 AM FUR MATCHER [facility] report to [place] follow upon completion. Specimen Anatomical Collection Method Collection Time Receive d Time (Source) Location / / Volume Laterality 07/15/2017 4:27 PM 201 8 4:28 FUR MATCHER PM FUR MATCHER Kimberly العلي DPM, Podiatry/Foot and Ankle Surgery LAB - IMMUNOLOGY ORDERABLES Performing Organization Address City/[facility]/ZIP Code Phon e Number [facility] [address] Rheumatoid factor (07/15/2017 4:27 PM FUR MATCHER) P athologist Signature Rheumatoid <20 <20 IU/mL 07/17/2017 [facility] Factor 12:02 PM FUR MATCHER [facility] Specimen Anatomical Collection Method Collection Time Receive d Time (Source) Location / / Volume Laterality Blood specimen 07/15/2017 4:27 PM 018 4:28 (specimen) FUR MATCHER PM FUR MATCHER Kimberly العلي DPM, Podiatry/Foot and Ankle Surgery LAB - BLOOD ORDERABLES Performing Organization Address City/[facility]/ZIP Code Phon e Number [facility] [address] XR Ankle Right G/E 3 Views (07/15/2017 3:56 PM FUR MATCHER) Anatomical Region Laterality Modality Left Ankle Right Computed Radiography Specimen (Source) Anatomical Location Collection Method / Collectio n Time Received Time / Laterality Volume Impressions 07/15/2017 6:25 PM FUR MATCHER IMPRESSION: Normal. RAJESH TIDWELL MD Narrative 07/15/2017 6:25 PM FUR MATCHER RIGHT ANKLE THREE VIEWS ?? 07/15/2017 3:56 PM HISTORY: Weight bearing. Chronic pain of right ankle. COMPARISON: None. Procedure Note Rajesh Tidwell MD - 07/15/2017Form atting of this note might be different from the original. RIGHT ANKLE THREE VIEWS 07/15/2017 3:56 PM HISTORY: Weight bearing. Chronic pain of right ankle. COMPARISON: None. IMPRESSION: Normal. RAJESH TIDWELL MD Kimberly J Zohra DPM, Podiatry/Foot and Ankle Surgery IMG DIAGNOSTIC IMAGING ORDERABLES XR Foot Right G/E 3 Views (07/15/2017 3:56 PM FUR MATCHER) Anatomical Region Laterality Modality Foot, Ankle Right Computed Radiography Specimen (Source) Anatomical Location Collection Method / Collectio n Time Received Time / Laterality Volume Impressions 07/15/2017 6:26 PM FUR MATCHER IMPRESSION: Mild pes planus deformity. No evidence for fracture or any joint abnormalities. RAJESH TIDWELL MD Narrative 07/15/2017 6:26 PM FUR MATCHER FOOT RIGHT THREE OR MORE VIEWS ??07/15/2017 [...] any joint abnormalities. RAJESH TIDWELL MD Kimberly ZHANGM, Podiatry/Foot and Ankle Surgery IMG DIAGNOSTIC IMAGING ORDERABLES documented in this encounter Visit Diagnoses Diagnosis Chronic pain of right ankle - Primary Pes planus of both feet Chronic pain of right ankle Chronic pain of right ankle documented in this encounter Care Teams Scaffolder Relationship Specialty Start Date End Date No Ref-Primary, Physician PCP - General 02/21/17 08/05/17 documented as of this encounter
--- OUTSIDE RECORDS SUMMARY | 2022-04-15 18:58 | XMS_ITS | Encounter Summary ---
:1985 Author Organization [place] Address [facility] [place] [address] Care Team Providers Name Role Phone Unavailable Primary Care Provider Unavailable Encounter Details Date Type Department Care Team Description 02/20/2017 Radiant Appointment [facility] Lindy Moore Chronic pain of Clinic Madhavi Guillaume MD right knee [address] [facility] [address] [place] [address] [phone] Social History Tobacco Use Types Packs/Day Years [...] Priority Date/Time Associated Diagnosis Comme nts XR KNEE RIGHT 3 Routine 02/20/2017 5:17 PM Chronic pain of Res ults for this VIEWS CDT right knee procedure are i n the results section. documented in this encounter Results XR Knee Right 3 Views (02/20/2017 5:17 PM CDT) Anatomical Region Laterality Modality Thigh, Knee, Leg Right Computed Radiography Specimen (Source) Anatomical Location Collection Method / Collectio n Time Received Time / Laterality Volume Impressions 02/20/2017 6:33 PM CDT IMPRESSION: ??No acute osseous abnormality demonstrated. CARSON THOMAS MD Narrative 02/20/2017 6:33 PM CDT KNEE THREE VIEWS RIGHT ??02/20/2017 5:17 PM HISTORY: Pain in right knee. Other chron ic pain. COMPARISON: None. FINDINGS: There is no significant degene rative change. No suprapatellar effusion. There is no acut e fracture. No dislocation. [place] views appear aligned. ??There ar e no worrisome bony lesions. Procedure Note Carson Thomas MD - 02/20/2017Fo rmatting of this note might be different from the original. KNEE THREE VIEWS RIGHT 02/20/2017 5:17 PM HISTORY: Pain in right knee. Other chron ic pain. COMPARISON: None. FINDINGS: There is no significant degene rative change. No suprapatellar effusion. There is no acut e fracture. No dislocation. [place] views appear aligned. There are no worrisome bony lesions. IMPRESSION: No acute osseous abnormality demonstrated. CARSON THOMAS MD Lindy Moore MD IMG DIAGNOSTIC IMAGING ORDER DAVIN documented in this encounter Visit Diagnoses Diagnosis Chronic pain of right knee documented in this encounter
--- OUTSIDE RECORDS SUMMARY | 2022-04-15 18:58 | XMS_ITS | Encounter Summary ---
:1985 Author Organization [place] Address [address] [place] [address] Care Team Providers Name Role Phone No Ref-Primary, Physician Primary Care Provider Encounter Details Date Type Department Care Team Description 07/15/2017 Results Only RESULTS [facility] Zohra, Kimberly De Leon DPM, [place] [address] [place], [place] [address] (Wo rk) Social History [...] Name Priority Date/Time Associated Diagnosis Comme nts HLA-B27 TYPING Routine 07/15/2017 4:22 PM Results for this RUM PROCESSING OPERATOR procedure are i n the results section . documented in this encounter Results HLA-B27 Typing (07/15/2017 4:22 PM RUM PROCESSING OPERATOR) P athologist Signature [id number] Method SSOP HISTOTRAC B locus B27 Neg HISTOTRAC Specimen (Source) Anatomical Collection Method Collection Time Re ceived Time Location / / Volume Laterality 07/15/2017 4:22 PM 8 RUM PROCESSING OPERATOR Kimberly العلي DPM, Podiatry/Foot and Ankle Surgery LAB - IMMUNOLOGY ORDERABLES Performing Organization Address City/State/ZIP Code Phon e Number [facility] Immunology/Histocompatabil [place], [place] [address] ity [facility] [address], [address] 3[address]580 HISTOTRAC documented in this encounter Visit Diagnoses Not on filedocumented in this encounter Care Teams Customer Program Specialist Relationship Specialty Start Date End Date No Ref-Primary, Physician PCP - General 02/21/17 08/05/17 documented as of this encounter
--- OUTSIDE RECORDS SUMMARY | 2022-04-15 18:58 | XMS_ITS | Encounter Summary ---
:1985 Author Organization [place] Address [facility] [place] [place] [address] Care Team Providers Name Role Phone No Ref-Primary, Physician Primary Care Provider Reason for Visit (Routine) - Closed Specialty Diagnoses / Procedures Referred By Contact Refer red To Contact Radiology / Radiology. Diagnoses Epic order, SB Patient [place] [address] [address] [place] [address] Phone: Fax: Referral ID Status Reason Start Date Expiration Date Visits Requ ested Visits Authorized [id number] Closed 02/21/2017 02/21/2018 1 1 Encounter Details Date Type Department Care Team Description 02/21/2017 Hospital Encounter [facility] Lindy Moore Chronic pain of [facility] MD [place] right ankle [address] [place] [address] [facility] [address] [place] [phone] Social History Tobacco Use Types Packs/Day Years [...] Comme nts MR ANKLE RIGHT W/O Routine 02/21/2017 6:24 PM Chronic pain of Results for this CONTRAST CDT right ankle procedure are i n the results section. documented in this encounter Results MR Ankle Right w/o Contrast (02/21/2017 6:24 PM CDT) Anatomical Region Laterality Modality Right Ankle, SUBRAD MR AMENA, UMP MR MSNhan M agnetic Resonance Specimen (Source) Anatomical Location Collection Method / Collectio n Time Received Time / Laterality Volume Impressions 02/22/2017 7:32 AM CDT IMPRESSION: ??Unremarkable MRI of the right ankle. FAM SHERIDAN MD Narrative 02/22/2017 7:32 AM CDT MR ANKLE RIGHT W/O CONTRAST ?? 02/21/2017 6:24 PM HISTORY: ??Medial ankle pain for the pas t year following an injury. COMPARISON: Radiographs on 03/08/2016. TECHNIQUE: ??Sagittal and coronal T1 and STIR. Transverse proton density and T2. FINDINGS: Osseous and Cartilaginous Structures: No fracture or osseous lesion is demonstrated. No abnormal marrow signal intensity is identified. The cartilage surfaces are well preserved. N o talar dome osteochondral lesion. Posterior Tibial and Flexor Tendons: ??N o tear or significant tendinosis of the posterior tibial tendo n, flexor digitorum longus tendon, or flexor hallucis longus tendon . Peroneal Tendons: ??No tear or significa nt tendinosis of the peroneal brevis tendon or peroneal longus tendon. Achilles Tendon: ??No tear or significan t tendinosis. Extensor Tendons: ??No tear or significa nt tendinosis of the anterior tibial tendon, extensor hallucis longus tendon, or extensor digitorum longus tendon. Lateral Ligaments: ??The anterior talofi bular ligament is unremarkable. The calcaneofibular, posterior talofibul ar, and anterior tibiofibular ligaments are unremarkable. Medial Deltoid Ligamentous Complex: ??Un remarkable. Plantar Fascia: ??Unremarkable, with no findings to suggest active plantar fasciitis. Additional Findings: No significant ??ti biotalar joint effusion. No retrocalcaneal bursitis. No mass within the tarsal tunnel. The sinus tarsi is unremarkable. No soft tissue ab normality is seen. Procedure Note Fam [place] MD - 02/22/2017Fo rmatting of this note might be different from the original. MR ANKLE RIGHT W/O CONTRAST 02/21/2017 6: 24 PM HISTORY: Medial ankle pain for the past year following an injury. COMPARISON: Radiographs on 03/08/2016. TECHNIQUE: Sagittal and coronal T1 and S TIR. Transverse proton density and T2. FINDINGS: Osseous and Cartilaginous Structures: No fracture or osseous lesion is demonstrated. No abnormal marrow signal intensity is identified. The cartilage surfaces are well preserved. N o talar dome osteochondral lesion. Posterior Tibial and Flexor Tendons: No tear or significant tendinosis of the posterior tibial tendo n, flexor digitorum longus tendon, or flexor hallucis longus tendon . Peroneal Tendons: No tear or significant tendinosis of the peroneal brevis tendon or peroneal longus tendon. Achilles Tendon: No tear or significant tendinosis. Extensor Tendons: No tear or significant tendinosis of the anterior tibial tendon, extensor hallucis longus tendon, or extensor digitorum longus tendon. Lateral Ligaments: The anterior talofibu lar ligament is unremarkable. The calcaneofibular, posterior talofibul ar, and anterior tibiofibular ligaments are unremarkable. Medial Deltoid Ligamentous Complex: Unre markable. Plantar Fascia: Unremarkable, with no fi ndings to suggest active plantar fasciitis. Additional Findings: No significant tibi otalar joint effusion. No retrocalcaneal bursitis. No mass within the tarsal tunnel. The sinus tarsi is unremarkable. No soft tissue ab normality is seen. IMPRESSION: Unremarkable MRI of the righ t ankle. FAM SHERIDAN MD Lindy Moore MD IMG MRI ORDERABLES documented in this encounter Visit Diagnoses Diagnosis Chronic pain of right ankle documented in this encounter Care Teams Bilingual Call Center Representative Relationship Specialty Start Date End Date No Ref-Primary, Physician PCP - General 02/21/17 08/05/17 documented as of this encounter
--- OUTSIDE RECORDS SUMMARY | 2022-04-15 18:58 | XMS_ITS | Encounter Summary ---
:1985 Author Organization [place] Address [address] [facility] [place] [address] Care Team Providers Name Role Phone No Ref-Primary, Physician Primary Care Provider Reason for Referral Consultation - Closed Specialty Diagnoses / Procedures Referred By Contact Refer red To Contact Diagnoses Chronic pain of right knee Lindy Moore MD [facility] [address] [facility] [address] [place] [address] [phone] Phone: Fax: Referral ID Status Reason Start Date Expiration Date Visits Requ ested Visits Authorized [id number] Closed 02/20/2017 02/20/2018 1 1 Consultation - Closed Specialty Diagnoses / Procedures Referred By Contact Refer red To Contact Diagnoses Hemangioma of face Lindy Moore [facility] MD REF'L [id number] [address] [address] [place] [address] Phone: Fax: Referral ID Status Reason Start Date Expiration Date Visits Requ ested Visits Authorized [id number] Closed 02/20/2017 02/20/2018 1 1 Reason for Visit Reason Comments Physical Encounter Details Date Type Department Care Team Description 02/20/2017 Office Visit [facility] Lindy Moore for routine adult health examination without abnormal findings (Primary Dx); Clinic Madhavi Guillaume MD Chronic pain of right ankle; [address] [address] [facility] Hemangioma of face; [place], [place] [address] Chronic pain of right knee [address] [phone] Social History Tobacco Use Types Packs/Day Years Used Date Smoking Tobacco: Former Smokeless Tobacco: Former Alcohol Use Standard Drinks/Week Comments No 0 (1 standard drink = 0.6 oz pure alcoho l) Sex Assigned at Date Recorded Not on file documented as of this encounter Last Filed Vital Signs Vital Sign Reading Time Taken Comments Blood Pressure 110/78 02/20/2017 3:09 PM CDT Pulse 89 02/20/2017 3:09 PM CDT Temperature 36.7 ??C (98.1 ??F) 02/20/2017 3:09 PM CDT Respiratory Rate - - Oxygen Saturation - - Inhaled Oxygen Concentration - - Weight 79.8 kg (176 lb) 02/20/2017 3:09 PM CDT Height 179.7 cm (5' 10.75) 02/20/2017 3:09 PM CDT Body Mass Index 24.72 02/20/2017 3:09 PM CDT documented in this encounter Patient Instructions Patient InstructionsLindy Moore MD - 02/20/2017 3:54 PM CDT Preventive Health Recommendations Male Ages 26 - 39 Yearly exam: ?? See your health care provider every year in order to o Review health changes. o Discuss preventive care. o Review your medicines if your doctor has prescribed any. ??? You should be tested each year for STDs (sexually transmitted diseases), if you???re at risk. ??? After age 35, talk to your provider about cholesterol testing. If you are at risk for heart disease, have your cholesterol tested at least every 5 years. ??? If you are at risk for diabetes, you should have a diabetes test (fasting glucose). Shots: Get a flu shot each year. Get a tetanus shot every 10 years. Nutrition: ??? Eat at least 5 servings of fruits and vegetables daily. ??? Eat whole-grain bread, whole-wheat pasta and brown rice instead of white grains and rice. ??? Talk to your provider about Calcium and Vitamin D. Lifestyle ??? Exercise for at least 150 minutes a week (30 minutes a day, 5 days a week). This will help you control your weight and prevent disease. ??? Limit alcohol to one drink per day. ??? No smoking. ??? Wear sunscreen to prevent skin cancer. ??? See your dentist every six months for an exam and cleaning. documented in this encounter Progress Notes Lindy Moore MD - 02/20/2017 3:00 PM CDT SUBJECTIVE: CC: Sterling Iqbal is an 31 year old male who presents for preventative health visit. Physical Annual: Getting at least 3 servings of Calcium per day:: Yes Bi-annual eye exam:: NO Dental care twice a year:: NO Sleep apnea or symptoms of sleep apnea:: None Diet:: Regular (no restrictions) Frequency of exercise:: 2-3 days/week Duration of exercise:: 30-45 minutes Taking medications regularly:: Yes Medication side effects:: Not applicable and None Additional concerns today:: YES Has a spot below the right eye, seems to be growing, tried to karina, bled after this. FH of skin cancer. Notes chronic pain in the right ankle, past year following a camping injury. Medial ankle, stiff with first steps, pain present always, weight bearing painful. Pain for 6 months, then seemed to improve, believes he reinjured a few months back, now pain every day. notes it is impairing his life. 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 No hx of injury, butwas a skateboarder in his younger years. No hx of MSK surgeries. would like him tested for Lyme. With all of his aches and pains, and he's noted deer ticks on him in the past, would like to be sure this isn't the reason for his symptoms. Today's PHQ-2 Score: PHQ-2 (??1998 Pfizer) 02/20/2017 Q1: Little interest or pleasure in doing things 0 Q2: Feeling down, depressed or hopeless 0 PHQ-2 Score 0 Q1: Little interest or pleasure in doing things Not at all Q2: Feeling down, depressed or hopeless Not at all PHQ-2 Score 0 Abuse: Current or Past(Physical, Sexual or Emotional)- No Do you feel safe in your environment - Yes Social History Substance Use Topics ??? Smoking status: Former Smoker ??? Smokeless tobacco: Former User ??? Alcohol use No The patient does not drink >3 drinks per day nor >7 drinks per week. Last PSA: No results found for: PSA Reviewed orders with patient. Reviewed health maintenance and updated orders accordingly - Yes Patient Active Problem List Diagnosis ??? Chronic pain of right ankle ??? Hemangioma of face History reviewed. No pertinent surgical history. Social History Substance Use Topics ??? Smoking status: Former Smoker ??? Smokeless tobacco: Former User ??? Alcohol use No Family History Problem Relation Age of Onset ??? Hypertension Mother Reviewed and updated as needed this visit by clinical staff Tobacco Allergies Meds Problems Med Hx Surg Hx Fam Hx Soc Hx Reviewed and updated as needed this visit by Provider Allergies Meds Problems ROS: C: NEGATIVE for fever, chills, change in weight I: see above E: NEGATIVE for vision changes or irritation ENT: NEGATIVE for ear, mouth and throat problems R: NEGATIVE for significant cough or SOB CV: NEGATIVE for chest pain, palpitations or peripheral edema GI: NEGATIVE for nausea, abdominal pain, heartburn, or change in bowel habits male: negative for dysuria, hematuria, decreased urinary stream, erectile dysfunction, urethral discharge M: see above N: NEGATIVE for weakness, dizziness or paresthesias P: NEGATIVE for changes in mood or affect OBJECTIVE: BP 110/78 (BP Location: Right arm, Patient Position: Sitting, Cuff Size: Adult Regular) Pulse 89 Temp 98.1 ??F (36.7 ??C) (Oral) Ht 5' 10.75 (1.797 m) Wt 176 lb (79.8 kg) BMI 24.72 kg/m2 EXAM: GENERAL: healthy, alert and no distress EYES: Eyes grossly normal to inspection, PERRL and conjunctivae and sclerae normal HENT: ear canals and TM's normal, nose and mouth without ulcers or lesions NECK: no adenopathy, no asymmetry, masses, or scars and thyroid normal to palpation RESP: lungs clear to auscultation - no rales, rhonchi or wheezes CV: regular rate and rhythm, normal S1 S2, no S3 or S4, no murmur, click or rub, no peripheral edemaand peripheral pulses strong ABDOMEN: soft, nontender, no hepatosplenomegaly, no masses and bowel sounds normal MS: right knee - no ttp along the joint lines, negative varus/valgus, negative Luis's, negative Noe's and posterior drawer, neg patellar grind Right ankle - ttp over the medial malleolus, normal ROM, no swelling or bruising SKIN: no suspicious lesions or rashes NEURO: Normal strength and tone, mentation intact and speech normal PSYCH: mentation appears normal, affect normal/bright ASSESSMENT/PLAN: 1. Encounter for routine adult health examination without abnormal findings - UTD with vaccines 2. Chronic pain of right ankle - discussed reasonable to pursue advanced imaging given length of symptoms, impairment of daily function, and failure to improve. - MR Ankle Right w/o Contrast; Future - Lyme Disease Roshni with reflex to WB Serum 3. Hemangioma of face - suggested Dermatology consultation for removal as it is growing - DERMATOLOGY REFERRAL 4. Chronic pain of right knee - normal exam today, XR showed minimal OA, will ask sports med for their opinion - XR Knee Right 3 Views; Future COUNSELING: Reviewed preventive health counseling, as reflected in patient instructions reports that he has quit smoking. He has quit using smokeless tobacco. Estimated body mass index is 24.72 kg/(m^2) as calculated from the following: Height as of this encounter: 5' 10.75 (1.797 m). Weight as of this encounter: 176 lb (79.8 kg). Lindy Moore MD [facility] Answers for HPI/ROS submitted by the patient on 02/20/2017 PHQ-2 Score: 0 Verónica Valencia - 02/20/2017 3:00 PM CDT Gave patient the referral information. Verónica Valencia Oiling Machine Operator documented in this encounter Nursing Notes Win Stanton CMA - 02/20/2017 3:00 PM CDT Chief Complaint Patient presents with ??? Physical Initial BP 110/78 (BP Location: Right arm, Patient Position: Sitting, Cuff Size: Adult Regular) Pulse 89 Temp 98.1 ??F (36.7 ??C) (Oral) Ht 5' 10.75 (1.797 m) Wt 176 lb (79.8 kg) BMI 24.72 kg/m2 Estimated body mass index is 24.72 kg/(m^2) as calculated from the following: Height as of this encounter: 5' 10.75 (1.797 m). Weight as of this encounter: 176 lb (79.8 kg). Medication Reconciliation: complete Health maintenance- up to date. Win Stanton CMA documented in this encounter Plan of Treatment Scheduled Referrals Name Type Priority Associated Diagnoses Order S chedule DERMATOLOGY REFERRAL Referral Routine Hemangioma of face O rdered: 02/20/2017 SPORTS MEDICINE REFERRAL Referral Routine Chronic pain of right Ordered: 02/20/2017 knee documented as of this encounter Procedures Procedure Name Priority Date/Time Associated Diagnosis Comme nts LYME DISEASE TOTAL Routine 02/20/2017 3:57 PM Chronic pain of Results for this ABS BLD WITH REFLEX CDT right ankle procedur e are in TO CONFIRM CLIA the results section. documented in this encounter Results MR Ankle Right w/o Contrast (02/21/2017 6:24 PM CDT) Anatomical Region Laterality Modality Right Ankle, SUBRAD MR MSK, UMP MR MSK M agnetic Resonance Specimen (Source) Anatomical Location [...] MD Lindy Moore MD IMG MRI ORDERABLES XR Knee Right 3 Views (02/20/2017 5:17 [...] is no acut e fracture. No dislocation. [place] views appear aligned. ??There ar e no [...] is no acut e fracture. No dislocation. [place] views appear aligned. There are no worrisome bony lesions. IMPRESSION: No acute osseous abnormality demonstrated. CARSON THOMAS MD Lindy Moore MD IMG DIAGNOSTIC IMAGING ORDER DAVIN Lyme Disease Roshni with reflex to WB Serum (02/20/2017 3:57 PM CDT) P athologist Signature Lyme Disease 0.11 0.00 - 02/24/2017 [facility] 0.89 11:50 AM CDT [facility] Comment: Negative, Absence of detectable Borrelia burdorferi antibodies. A negative result does not exclude the possibility of Borrelia burgdorferi infection. If early Lyme disease is suspected, a secon d sample should be collected and tested 2 to 4 weeks later. Specimen Anatomical Collection Method Collection Time Receive d Time (Source) Location / / Volume Laterality Blood specimen 02/20/2017 3:57 PM 017 4:02 (specimen) CDT PM CDT Lindy Moore MD LAB - BLOOD ORDERABLES Performing Organization Address City/State/ZIP Code Phon e Number [facility] [address] [place], [place] [id number] [place] [address] documented in this encounter Visit Diagnoses Diagnosis Encounter for routine adult health exami nation without abnormal findings - Primary Chronic pain of right ankle Hemangioma of face Hemangioma of unspecified site Chronic pain of right knee Chronic pain of right knee Chronic pain of right ankle documented in this encounter Care Teams Sock Lining Stitcher Relationship Specialty Start Date End Date No Ref-Primary, Physician PCP - General 02/21/17 08/05/17 documented as of this encounter
--- OUTSIDE RECORDS SUMMARY | 2022-04-15 18:58 | XMS_ITS | Encounter Summary ---
:1985 Author Organization [place] Address [address] [facility] [place] [address] Care Team Providers Name Role Phone No Ref-Primary, Physician Primary Care Provider Reason for Referral Diagnostic Imaging MRI - Closed Specialty Diagnoses / Procedures Referred By Contact Refer red To Contact Radiology. Diagnoses Pain in joint involving ankle and foot, right Kimberly العلي DPM, Rh Mri R scc Procedures MR Ankle Right w/o Contrast Podiatry/Foot and Ankle [address] [facility] [address] [address] [address] [phone] [place] [address] Referral ID Status Reason Start Date Expiration Date Visits Requ ested Visits Authorized [id number] Closed 07/25/2017 07/25/2018 1 1 ICK FOLLOWER Reason for Visit Reason Onset Date Comments Referral 07/24/2017 Encounter Details Date Type Department Care Team Description 07/24/2017 Telephone [facility] Kimberly العلي DPM, Referral [facility] Podiatry/Foot and Ankle [address] [place] [address] NID[place]kins [address] [phone] Social History Tobacco Use Types Packs/Day Years Used Date Smoking Tobacco: Former Smokeless Tobacco: Former Alcohol Use Standard Drinks/Week Comments No 0 (1 standard drink = 0.6 oz pure alcoho l) Sex Assigned at Date Recorded Not on file documented as of this encounter Miscellaneous Notes Telephone Encounter - Rajesh Hammond - 07/25/2017 9:03 AM CST Spoke with pt and gave phone number to call and schedule ICK FOLLOWER Telephone Encounter - Rajesh Hammond - 07/25/2017 8:50 AM CST Called and was unable to leave vm due to box being full ICK FOLLOWER Telephone Encounter - Kimberly العلي DPM, Podiatry/Foot and Ankle Surgery - 07/25/2017 8:47 AM CST Ordered MRI. Please let patient know he can call to schedule at: [phone]. Kimberly العلي DPM ICK FOLLOWER Telephone Encounter - Lias Menon - 07/24/2017 11:33 AM CST Pt calling and requesting a order for an MRI. Pt states that you wanted this done before the next appointment. Sussy-Referrals ICK FOLLOWER documented in this encounter Plan of Treatment Not on filedocumented as of this encounter Results MR Ankle Right w/o Contrast (07/28/2017 5:28 PM DERRICK FOLLOWER) Anatomical Region Laterality Modality Right Ankle, SUBRAD MR MSK, UMP MR MSK, RAD MR Magnetic Resonance Specimen (Source) Anatomical Location Collection Method / Collectio n Time Received Time / Laterality Volume Impressions 07/29/2017 8:25 AM DERRICK FOLLOWER IMPRESSION: ?? 1. Minimal reactive edema in the medial malleolus. Bone marrow signal is otherwise within normal limits. This area of edema is immediately underlying the area marked for site of s ymptoms. 2. No significant articular cartilage, t endinous or ligamentous abnormality is seen. Etiology for patien t's symptoms is otherwise not identified. YUDITH SHEARER MD Narrative 07/29/2017 8:25 AM DERRICK FOLLOWER MRI OF THE RIGHT ANKLE ?? 07/28/2017 [...] involving ankle and foot, right - Primary Pain in joint involving ankle and foot, right documented in this encounter Care Teams Web Marketing Coordinator Relationship Specialty Start Date End Date No Ref-Primary, Physician PCP - General 02/21/17 08/05/17 documented as of this encounter
--- OUTSIDE RECORDS SUMMARY | 2022-04-15 18:58 | XMS_ITS | Encounter Summary ---
:1985 Author Organization [place] Address [address] [place] [address] Care Team Providers Name Role Phone No Ref-Primary, Physician Primary Care Provider Reason for Visit JOCELYNN Physical Therapy (Routine) - Closed Specialty Diagnoses / Procedures Referred By Contact Refer red To Contact Physical Therapy Diagnoses >4 (R) ankle and knee / Freddy Riggins MD @ [facility] / Pref1 Andrey [facility] Procedures EXTREMITY INITIAL MD [facility] [address] [place] [address] [facility] [address] [phone] [place] [address] Referral ID Status Reason Start Date Expiration Date Visits Requ ested Visits Authorized [id number] Closed 03/05/2017 07/10/2018 30 30 Encounter Details Date Type Department Care Team Description 04/02/2017 Therapy Visit [facility] Alka Wren, Tibi zabrina posterior tendinitis, right; Rehabilitation Services PT Acute pain of right knee [place] [address] [address] [id number] [place] [address]. [place] [address] Social History Tobacco Use Types Packs/Day [...] Associated Diagnosis Comme nts ZZC THERAPEUTIC Routine 04/02/2017 1:26 PM Tibialis posterior EXERCISES CDT tendinitis, righ t Acute pain of right knee ZZC ULTRASOUND THERAPY Routine 04/02/2017 1:26 PM Tibialis pos terior CDT tendinitis, righ t Acute pain of right knee Z HOT OR COLD PACKS Routine 04/02/2017 1:26 PM Tibialis post erior THERAPY CDT tendinitis, righ t Acute pain of right knee documented in this encounter Visit Diagnoses Diagnosis Tibialis posterior tendinitis, right Acute pain of right knee documented in this encounter Care Teams Drill Press Tender Relationship Specialty Start Date End Date No Ref-Primary, Physician PCP - General 02/21/17 08/05/17 documented as of this encounter
--- OUTSIDE RECORDS SUMMARY | 2022-04-15 18:58 | XMS_ITS | Encounter Summary ---
:1985 Author Organization [place] Address [facility] [place] [address] Care Team Providers Name Role Phone No Ref-Primary, Physician Primary Care Provider Reason for Visit Reason Comments Ankle/Foot right 1 year ago, stepped funny an d started having right ankle pain Knee Pain Chronic knee pain, hurts al l over the place Encounter Details Date Type Department Care Team Description 02/22/2017 Office Visit [facility] Freddy Riggins Posteri or tibial tendinitis, right leg (Primary Dx); Sports Medicine MD Jose Luis Patellofemoral pain syndrome of right kn ee; [facility] [place] [facility] Acquired pes planus of both feet [address] [address] [facility] [address] [place] [address] [phone] Social History Tobacco Use Types Packs/Day Years Used Date Smoking Tobacco: Former Smokeless Tobacco: Former Alcohol Use Standard Drinks/Week Comments No 0 (1 standard drink = 0.6 oz pure alcoho l) Sex Assigned at Date Recorded Not on file documented as of this encounter Last Filed Vital Signs Vital Sign Reading Time Taken Comments Blood Pressure 100/72 02/22/2017 11:13 AM CDT Pulse - - Temperature - - Respiratory Rate - - Oxygen Saturation - - Inhaled Oxygen Concentration - - Weight - - Height - - Body Mass Index - - documented in this encounter Progress Notes Freddy Riggins MD - 02/22/2017 11:20 AM CDT HPI [facility] Visit s Feb 22, 2017 Subjective: Sterling Iqbal is a 31 year old male who is seen in consultation at the request of Dr. Moore for evaluation of right knee and right ankle pain Symptoms began 1 years(s) ago for the right ankle and more than 5 years ago for the right knee. Patient describes injury as jogging on uneven surfaces. He reports stabbing, sharp and exhausting right ankle pain that is located medial malleolus; radiation Absent. Pain is 9/10 in maximal severity, and 7/10 currently. Symptoms are generally worse in the morning and at night, twisting, going down the stairs; better with norco. Other treatment so far has consisted of Ice, Heat, Aleve, Tylenol, Rest and Elevation with moderate relief. Associated symptoms: swelling and catching. He has had history ofrelated problems. Many ankle sprains in youth. Right knee: No known injury. 4-5 years. reports aching and throbbing right knee pain that is located all over;radiation Absent. Pain is 10/10 in maximal severity, and 8/10 currently. Symptoms are generally worse with stairs especially while carrying items; better with resting. Other treatment so far has consisted of Ice, Heat, Aleve, Tylenol, Rest and Elevation with no relief. Associated symptoms: crepitus, swelling and instability sensation. He denies history of related problems. Patient Active Problem List Diagnosis Date Noted ??? Chronic pain of right ankle 02/20/2017 Priority: Medium ??? 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/2017 Priority: Medium ??? Chronic pain of right knee 02/20/2017 Priority: Medium Family History Problem Relation Age of Onset ??? Hypertension Mother Social History Social History ??? Marital status: Spouse name: N/A ??? Number of children: N/A ??? Years of education: N/A Social History Main Topics ??? Smoking status: Former Smoker ??? Smokeless tobacco: Former User ??? Alcohol use No PAST SURGICAL HISTORY No surgeries reported. Review of Systems Musculoskeletal: Positive for joint pain. All other systems reviewed and are negative. Physical Exam BP 100/72 Constitutional:well-developed, well-nourished, and in no distress. Cardiovascular: Intact distal pulses. Neurological: alert. Gait Abnormal: pes planus Skin: Skin is warm and dry. Psychiatric: Mood and affect normal. Respiratory: unlabored, speaks in full sentences Lymph: no LAD, no lymphangitis Left Ankle Exam Swelling: None. Tenderness None Range of Motion Dorsiflexion: Normal Plantar flexion: Normal Inversion: Normal Eversion: Normal Muscle Strength Dorsiflexion: 5/5 Plantar flexion: 5/5 Anterior tibial: 5/5 Posterior tibial: 5/5 Gastrosoleus: 5/5 Peroneal muscle: 5/5 Tests Anterior drawer: Negative. Varus tilt: Negative. Comments: Mild pes planus on LEFT Right Ankle Exam Swelling: None Tenderness The patient is experiencing tenderness in the inferior and posterior aspect of medial malloulus. Range of Motion Dorsiflexion: Normal Plantar flexion: Normal Inversion: Normal Eversion: Normal Muscle Strength Dorsiflexion: 5/5 Plantar flexion: 5/5 Anterior tibial: 5/5 Posterior tibial: 5/5 Gastrosoleus: 5/5 Peroneal muscle: 5/5 Tests Anterior drawer: Positive Varus tilt: NegativeComments Marked pes planus, worse than LEFT side Right Knee Exam Swelling: None Effusion: No Tenderness The patient is experiencing tenderness in the latearl patella facet. Range of Motion Extension: Normal Flexion: Normal Tests McMurrays: Medial - Negative Lateral - Negative Noe: Anterior - Negative Posterior - Negative Drawer: Anterior - Negative Posterior - Negative Varus: Negative Valgus: Negative Pivot Shift: Negative Patellar Apprehension: No X-ray images Previously done and independently reviewed by me in the office today with the patient. X-ray shows: Recent Results (from the past 48 hour(s)) XR Knee Right 3 Views Narrative KNEE THREE VIEWS RIGHT 02/20/2017 5:17 PM HISTORY: Pain in right knee. Other chronic pain. COMPARISON: None. FINDINGS: There is no significant degenerative change. No suprapatellar effusion. There is no acute fracture. No dislocation. Knierim views appear aligned. There are no worrisome bony lesions. Impression IMPRESSION: No acute osseous abnormality demonstrated. CARSON THOMAS MD XR Eye Foreign Body Narrative ORBITS ONE VIEW FOR FOREIGN BODY 02/21/2017 5:44 PM HISTORY: Evaluate for foreign body. COMPARISON: None. Impression IMPRESSION: Unremarkable examination with no foreign body seen in the region of the orbits. FAM FINN MD MR Ankle Right w/o Contrast Narrative MR ANKLE RIGHT W/O CONTRAST 02/21/2017 6:24 PM HISTORY: Medial ankle pain for the past year following an injury. COMPARISON: Radiographs on 03/08/2016. TECHNIQUE: Sagittal and coronal T1 and STIR. Transverse proton density and T2. FINDINGS: Osseous and Cartilaginous Structures: No fracture or osseous lesion is demonstrated. No abnormal marrow signal intensity is identified. The cartilage surfaces are well preserved. No talar dome osteochondral lesion. Posterior Tibial and Flexor Tendons: No tear or significant tendinosis of the posterior tibial tendon, flexor digitorum longus tendon, or flexor hallucis longus tendon. Peroneal Tendons: No tear or significant tendinosis of the peroneal brevis tendon or peroneal longus tendon. Achilles Tendon: No tear or significant tendinosis. Extensor Tendons: No tear or significant tendinosis of the anterior tibial tendon, extensor hallucis longus tendon, or extensor digitorum longus tendon. Lateral Ligaments: The anterior talofibular ligament is unremarkable. The calcaneofibular, posterior talofibular, and anterior tibiofibular ligaments are unremarkable. Medial Deltoid Ligamentous Complex: Unremarkable. Plantar Fascia: Unremarkable, with no findings to suggest active plantar fasciitis. Additional Findings: No significant tibiotalar joint effusion. No retrocalcaneal bursitis. No mass within the tarsal tunnel. The sinus tarsi is unremarkable. No soft tissue abnormality is seen. Impression IMPRESSION: Unremarkable MRI of the right ankle. FAM FINN MD ASSESSMENT/PLAN ICD-10-CM 1. Posterior tibial tendinitis, right leg M76.821 2. Patellofemoral pain syndrome of right knee M22.2X1 3. Acquired pes planus of both feet M21.41 M21.42 PTT rupture ruled out on MRI; reassurance. Acquired PTT dysfunction, possibly triggering PFS, although duration suggests unrelated activities. Arch supports recommended, recommended. Declines orthotics referral. To PHYSICAL THERAPY for PTT strengthening and PFS rehab. If unsuccessful in 6 weeks, consider podiatry eval. documented in this encounter Nursing Notes Liliana Santiago - 02/22/2017 11:20 AM CDT Chief Complaint Patient presents with ??? Ankle/Foot right 1 year ago, stepped funny and started having right ankle pain ??? Knee Pain Chronic knee pain, hurts all over the place Initial BP 100/72 Estimated body mass index is 24.72 kg/(m^2) as calculated from the following: Height as of 02/20/17: 5' 10.75 (1.797 m). Weight as of 02/20/17: 176 lb (79.8 kg). Medication Reconciliation: complete Liliana Santiago ATC documented in this encounter Plan of Treatment Not on filedocumented as of this encounter Visit Diagnoses Diagnosis Posterior tibial tendinitis, right leg - Primary Patellofemoral pain syndrome of right kn ee Acquired pes planus of both feet Flat foot documented in this encounter Care Teams Supervisor Title Relationship Specialty Start Date End Date No Ref-Primary, Physician PCP - General 02/21/17 08/05/17 documented as of this encounter
--- OUTSIDE RECORDS SUMMARY | 2022-04-15 18:58 | XMS_ITS | Encounter Summary ---
:1985 Author Organization [place] Address [address] [place] [address] Care Team Providers Name Role Phone No Ref-Primary, Physician Primary Care Provider Mike Canales MD Primary Care Provider Unavailable Mike Canales MD Unavailable Unavailable Mike Canales MD Unavailable Unavailable Reason for Visit [facility] Physical Therapy (Routine) - Closed Specialty Diagnoses / Procedures Referred By Contact Refer red To Contact Physical Therapy Diagnoses >4 (R) ankle and knee / Freddy Riggins MD @ [facility] / Pref1 Andrey [facility] Procedures EXTREMITY INITIAL MD [facility] Therapy - [facility]EDICS [address] [address] [facility] [address] [facility] [address] [id number] [place] [address] Referral ID Status Reason Start Date Expiration Date Visits Requ ested Visits Authorized [id number] Closed 03/05/2017 07/10/2018 30 30 Encounter Details Date Type Department Care Team Description 04/30/2017 Therapy Visit [facility] Chente Franks, Tibia lis posterior tendinitis, right; Rehabilitation Services PT Acute pain of right knee [address] [place] [address] [facility] [address] [place], [place] [phone] Social History Tobacco Use Types Packs/Day Years Used Date Smoking Tobacco: Former Smokeless Tobacco: Former Alcohol Use Standard Drinks/Week Comments No 0 (1 standard drink = 0.6 oz pure alcoho l) Sex Assigned at Date Recorded Not on file documented as of this encounter Progress Notes Chente Franks, PT - 04/30/2017 11:30 AM CDT Subjective: HPI Objective: System Physical Exam General ROS Assessment/Plan: PROGRESS REPORT Progress reporting period is from 03/05/17 to 04/30/17 (6 visits). SUBJECTIVE Subjective changes noted by patient: Prieto states that his right knee has improved nicely, but the left ankle has not changed much. He has less overall knee pain, but still has pain with stairs intermittently and prolonged squatting or kneeling on the knee. He continues to have left medial ankle/hernadez pain with walking and being on his feet longer than 10-15 minutes. Current pain level is 8/10 (Knee 0-5/10, Ankle 0-8/10) . Previous pain level was Initial Pain level: 7/10. Changes in function: Yes (See Goal flowsheet attached for changes in current functional level) Adverse reaction to treatment or activity: None OBJECTIVE Changes noted in objective findings: Very tender along the distal medial left tibia, replicating medial compartment hernadez splints. Left post tib tendon is not as tender as it was initially. RIght knee is no longer painful to palpation or with patellar glides. ASSESSMENT/PLAN Updated problem list and treatment plan: Diagnosis 1: Right knee PTFC Diagnosis 2: Left posterior tibialis tendonitis/hernadez splints STG/LTGs have been met or progress has been made towards goals: Yes (See Goal flow sheet completed today.) Assessment of Progress: The patient's condition has potential to improve. Self Management Plans: Patient has been instructed in a home treatment program. Sterling continues to require the following intervention to meet STG and LTG's: PT intervention is nolonger required to meet STG/LTG. Recommendations: Pt has been advised to continue his HEP and acquire shoe inserts. Please refer to the daily flowsheet for treatment today, total treatment time and time spent performing 1:1 timed codes. Chente Franks, PT - 04/30/2017 11:30 AM CDT The Progress Report from 04/30/17 will serve as the Discharge. ED GOLD PLATER documented in this encounter Plan of Treatment Not on filedocumented as of this encounter Procedures Procedure Name Priority Date/Time Associated Diagnosis Comme nts [facility] MANUAL THER Routine 05/01/2017 5:47 PM Tibialis posterior TECH,1+REGIONS,EA 15 MIN CDT tendini tis, right Acute pain of right knee [facility] THERAPEUTIC Routine 05/01/2017 5:47 PM Tibialis posterior EXERCISES CDT tendinitis, righ t Acute pain of right knee [facility] ULTRASOUND THERAPY Routine 05/01/2017 5:47 PM Tibialis pos terior CDT tendinitis, righ t Acute pain of right knee [facility] HOT OR COLD PACKS Routine 05/01/2017 5:47 PM Tibialis post erior THERAPY CDT tendinitis, righ t Acute pain of right knee documented in this encounter Visit Diagnoses Diagnosis Tibialis posterior tendinitis, right Acute pain of right knee documented in this encounter Care Teams Stripper And Taper Relationship Specialty Start Date End Date No Ref-Primary, Physician PCP - General 02/21/17 08/05/17 Mike Canales MD PCP - General Family Practice 08/06/17 Mike Canales MD PCP - Assigned PCP 08/10/17 09/08/18 Mike Canales MD Assigned PCP 08/10/17 08/12/20 documented as of this encounter
--- OUTSIDE RECORDS SUMMARY | 2022-04-15 18:58 | XMS_ITS | Encounter Summary ---
:1985 Author Organization [place] Address [address] [place] [address] Care Team Providers Name Role Phone Unavailable Primary Care Provider Unavailable Reason for Visit Reason Comments Urgent Care Musculoskeletal Problem right ankle injury last week while camping, few red [place]rence and swelling Encounter Details Date Type Department Care Team Description 03/08/2016 Office Visit [facility] Mayra Hunt Sprain o f right ankle, Urgent Care Erasto Restrepo MD unspecified ligament, [address] initial encounter [place], [place] (Primary Dx ) [id number] [phone] Social History Tobacco Use Types Packs/Day Years Used Date Smoking Tobacco: Never Alcohol Use Standard Drinks/Week Comments No 0 (1 standard drink = 0.6 oz pure alcoho l) Sex Assigned at Date Recorded Not on file documented as of this encounter Last Filed Vital Signs Vital Sign Reading Time Taken Comments Blood Pressure 124/80 03/08/2016 6:11 PM CDT Pulse 92 03/08/2016 6:11 PM CDT Temperature 36.7 ??C (98.1 ??F) 03/08/2016 6:11 PM CDT Respiratory Rate 16 03/08/2016 6:11 PM CDT Oxygen Saturation 98% 03/08/2016 6:11 PM CDT Inhaled Oxygen Concentration - - Weight 82.1 kg (181 lb) 03/08/2016 6:11 PM CDT Height 182.9 cm (6') 03/08/2016 6:11 PM CDT Body Mass Index 24.55 03/08/2016 6:11 PM CDT documented in this encounter Progress Notes Mayra Hunt MD - 03/08/2016 10:09 PM CDT SUBJECTIVE: Chief Complaint Patient presents with ??? Urgent Care ??? Musculoskeletal Problem right ankle injury last week while camping, few red lawrence and swelling Sterling Iqbal is a 30 year old male who presents today with right ankle pain that occurred 1 week(s) ago. The mechanism of injury includes: unknown. Pain was gradual onset, still present and constant and moderate Pain started after he was running [place] half a mile, No fall or obvious injury\ Therapies to improve symptoms include: ibuprofen History of recurrent ankle injuries: no Pain is not changed since onset. Aggravating factors: walking, weight-bearing and flexion/extension, Relieved byrest. History reviewed. No pertinent past medical history. No current outpatient prescriptions on file prior to visit. No current facility-administered medications on file prior to visit. Social History Substance Use Topics ??? Smoking status: Never Smoker ??? Smokeless tobacco: Not on file ??? Alcohol Use: No History reviewed. No pertinent family history. ROS: INTEGUMENTARY/SKIN: NEGATIVE for worrisome rashes, moles or lesions EYES: NEGATIVE for vision changes or irritation ENT/MOUTH: NEGATIVE for ear, mouth and throat problems RESP:NEGATIVE for significant cough or SOB GI: NEGATIVE for nausea, abdominal pain, heartburn, or change in bowel habits OBJECTIVE: BP 124/80 mmHg Pulse 92 Temp(Src) 98.1 ??F (36.7 ??C) (Oral) Resp 16 Ht 6' (1.829 m) Wt 181 lb (82.101 kg) BMI 24.54 kg/m2 SpO2 98% EXAM: Patient appears alert and in moderate distress due to ankle pain Ankle Exam: right Inspection: swelling around the medial malleolus Palpation: tender over medial malleolus and distal toward the plantar heel and proximal about 10 cmabove the ankle Both doralis pedis and posterior tibial pulses intact Compression of the tibia and fibula distant to the ankle does not produce pain in the region of the ankle ( medial, lateral, posterior, anterior) Neuro:Normal strength and tone, sensory exam grossly normal Vascular: The foot is warm with palpable pulses, capillary refill 2 seconds in the toes Skin: No rashes, no sores, no open wounds X-Ray: offical reading pending,normal mortise, no loose bodies, no fractures seen ASSESSMENT Sprain of right ankle, unspecified ligament, initial encounter - XR Ankle Right G/E 3 Views; Future - order for DME; Right ankle aircast splint - HYDROcodone-acetaminophen (NORCO) 5-325 MG per tablet; Take 1 tablet by mouth every 6 hours as needed for moderate to severe pain Ibuprofen and/ or tylenol for pain Narcotic pain medication for more severe pain Air cast splint for support --given in clinic warm packs help improve blood flow the the area to heal the injured tissues. Use a cane to help with ambulating until able to bear weight without extra support Follow-up with primary care, orthopedics or podiatry if persistent pain and disability documented in this encounter Nursing Notes Julia Oh MA - 03/08/2016 6:12 PM CDT Chief Complaint Patient presents with ??? Urgent Care ??? Musculoskeletal Problem right ankle injury last week while camping, few red [place] and swelling Initial BP 124/80 mmHg Pulse 92 Temp(Src) 98.1 ??F (36.7 ??C) (Oral) Resp 16 Ht 6' (1.829 m) Wt 181 lb (82.101 kg) BMI 24.54 kg/m2 SpO2 98% Estimated body mass index is 24.54 kg/(m^2) as calculated from the following: Height as of this encounter: 6' (1.829 m). Weight as of this encounter: 181 lb (82.101 kg). BP completed using cuff size: shila Oh CMA documented in this encounter Plan of Treatment Not on filedocumented as of this encounter Results XR Ankle Right G/E 3 Views (03/08/2016 6:50 PM CDT) Anatomical Region Laterality Modality Left Ankle Right Computed Radiography Specimen (Source) Anatomical Location Collection Method / Collectio n Time Received Time / Laterality Volume Impressions 03/08/2016 8:18 PM CDT IMPRESSION: Negative. SONI CHAN MD Narrative 03/08/2016 8:18 PM CDT RIGHT ANKLE THREE OR MORE VIEWS ?? 03/08/2016 6:50 PM HISTORY: Trauma. COMPARISON: None. FINDINGS: Negative right ankle. No fract ure. Procedure Note Soni Chan MD - 03/08/2016Forma tting of this note might be different from the original. RIGHT ANKLE THREE OR MORE VIEWS 03/08/2016 6:50 PM HISTORY: Trauma. COMPARISON: None. FINDINGS: Negative right ankle. No fract ure. IMPRESSION: Negative. SONI CHAN MD Mayra Hunt MD IMG DIAGNOSTIC IMAGING ORDER DAVIN documented in this encounter Visit Diagnoses Diagnosis Sprain of right ankle, unspecified ligam ent, initial encounter - Primary Sprain of right ankle, unspecified ligam ent, initial encounter documented in this encounter
--- OUTSIDE RECORDS SUMMARY | 2022-04-15 18:58 | XMS_ITS | Encounter Summary ---
:1985 Author Organization [place] Address [facility] [place] [address] Care Team Providers Name Role Phone Unavailable Primary Care Provider Unavailable Encounter Details Date Type Department Care Team Description 03/08/2016 Radiant Appointment [facility] Mayra Hunt of [facility] MD Kaye ankle, unspecified [address] [facility] [address] [place] [address] encounter [id number] [phone] Social History Tobacco Use Types Packs/Day Years [...] Comme nts XR ANKLE RIGHT G/E Routine 03/08/2016 6:50 PM Sprain of right Results for this 3 VIEWS CDT ankle, unspecified procedure are in ligament, initial the result s encounter section. documented in this encounter Results XR [...]
--- NOTE | 2022-04-15 21:13 | ED.NURSE ---
Pt called to have Rx transferred, didn't make it to [place] before close. Zinc Miner Blasting did try to call [facility], but after 20 minutes not answered. [employer]inc [employer]er [employer] offered to call [place] 24 hr pharmacy but Pt declines, will grape picker Rx in am.
== END 2022-04-15 19:08 | disposition home or self-care (01) ==
LOC: ED 18:56
PROVIDERS: Emergency Provider Emergency Medicine Emergency Medical Services
DX: M54.50 Low back pain, unspecified (principal)
CPT/HCPCS: 36415; 74177; 80048; 81001; 85025; 99284; Q9967